=== PATIENT | female | born 1975 | race Caucasian/White ===

== ENCOUNTER → 2021-07-10 08:38 | Outpatient (BNVA) | payer MEDICAID, SELFPAY | PROVIDERS: Family Provider Family Medicine; Referring Provider Family Medicine; Visit Provider Specialist | DX: M25.561 Pain in right knee (principal); M25.562 Pain in left knee | CPT/HCPCS: 73560; 73565 ==

== ENCOUNTER 2021-07-10 14:26 | Outpatient (CLI) | payer MEDICARE, MEDICAID, SELFPAY | END 2021-07-10 14:27 | disposition home or self-care (01) | LOC: SPT 14:27 | PROVIDERS: Family Provider Family Medicine; Visit Provider Specialist | DX: Z46.89 Encounter for fitting and adjustment of other specified devices (principal); M17.0 Bilateral primary osteoarthritis of knee | CPT/HCPCS: 97760; L1812 ==

== ENCOUNTER → 2021-07-29 00:01 | Outpatient (BNVA) | payer MEDICARE, MEDICAID, SELFPAY | PROVIDERS: Family Provider Family Medicine; Visit Provider Obstetrics & Gynecology | DX: N39.46 Mixed incontinence (principal); N81.9 Female genital prolapse, unspecified; N32.81 Overactive bladder; N81.10 Cystocele, unspecified | CPT/HCPCS: 87086 ==

== ENCOUNTER 2021-07-30 12:19 | Outpatient (RCR) | payer MEDICARE, SELFPAY | END 2021-08-08 23:59 | disposition home or self-care (01) | LOC: SPT 12:19 | PROVIDERS: PCP Family Medicine; Referring Provider Specialist; Visit Provider Specialist | DX: M17.12 Unilateral primary osteoarthritis, left knee (principal); M17.11 Unilateral primary osteoarthritis, right knee | CPT/HCPCS: 97161 ==

== ENCOUNTER → 2021-10-11 13:42 | Outpatient (BNVA) | payer MEDICARE, SELFPAY | PROVIDERS: PCP Family Medicine; Visit Provider Obstetrics & Gynecology | DX: Z20.822 Contact with and (suspected) exposure to COVID-19 (principal); N39.46 Mixed incontinence; N81.10 Cystocele, unspecified; N81.9 Female genital prolapse, unspecified; Z20.818 Contact with and (suspected) exposure to other bacterial communicable diseases | CPT/HCPCS: 87635 ==

== ENCOUNTER 2021-10-16 15:13 | Observation (INO) | payer MEDICARE, MEDICAID, SELFPAY ==
[2021-10-14 10:04] VITALS: BMI 33.0
--- NOTE | 2021-10-14 10:14 | ECG_ITS ---
[facility] Test Date: 2021-10-14 Pat Name: Roselia Chester Department: Room: Gender: Female Rn Operating Room: : 1975 Requested By: Cathy Hood Order Number: [id number] Jason MD: Michael Magaña M.D. Measurements Intervals [place] Rate: 57 P: 31 VA: 140 QRS: 30 QRSD: 86 T: 32 QT: 418 QTc: 410 Interpretive Statements SINUS BRADYCARDIA WITH SINUS ARRHYTHMIA No previous ECG available for comparison Electronically Signed On 10-14-2021 17:02:33 ENVIRONMENTAL SOLUTIONS ENGINEER by Michael Magaña M.D. [id number]
--- NOTE | 2021-10-14 11:06 | ANES.PREANE2 ---
Pre-Anesthetic Assessment Pre-Anesthetic Assessment: Height/Weight: Height 1.68 m Weight 92.986 kg Preop Diagnosis: cystocele Proposed Procedure: Operation Date: 10/16/21 10:50 Proposed Procedures p Anterior Repair Anterior Colporrhaphy 67564 [id number] N81.10 N39.46(Not Applicable) - Pan Melendez MD s Sling(Not Applicable) - Pan Melendez MD Familial anesthetic complications: Hard time going to sleep Social: Social History: No alcohol and No tobacco Comment: marijuana user (medical) Exam: Pre-Anes Outpt Exam: alert, oriented x 3, clear to auscultation bilaterally and regular rate & rhythm Airway: MP: 2 Dentition: Other (no wisdom teeth) Pulmonary: Pulmonary: COPD (former smoker) CV/HEM: CV/HEM: NM (1 year) Comments: Seems to have had pericardial effusion at the time as well, which was drained No further heart issues Musc/skel: Musc/skel: Fibromyalgia Neuropsych: Comments: charcot brent tooth Anesthetic Plan: ASA status: 3 Anesthesia: General Risk of > 500 ml blood loss (7ml/kg in children): No PFSH Anesthesia PFSH: Medical History (Updated 07/29/21 @ 14:52 by Pan Melendez MD) Fktvxoi-Efyrn-Sxgqp disease Congestive heart failure Surgical History (Updated 07/29/21 @ 14:50 by Pan Melendez MD) History of bladder repair surgery 2 bladder sling surgeries. History of delivery 1998 History of hysterectomy 1998 History of left breast biopsy Breast cancer of left breast removed in 2005. History of spinal surgery Neck surgery (2005) History of vaginal surgery Family History (Updated 07/29/21 @ 13:45 by Estefania Landis LPN) Sister Anesthesia complication Mother Cancer Lung cancer and back cancer Lung disease Diabetes Father Diabetes Other Hypertension Psychiatric illness Denies family history of CAD (coronary artery disease) Clotting disorder Dementia Hyperlipidemia Chronic kidney disease (CKD) Suicide Bleeding disorder Family history of premature coronary artery disease Stroke Data Anesthesia Cardiac Studies: No Data to Display
[2021-10-14 11:28] LABS: Basophils # 0.1 10^3/uL (0.0-0.1); Basophils % 0.7 %; Eosinophils # 0.2 10^3/uL (0.0-0.8); Eosinophils % 1.6 %; Hematocrit 43.6 % (37.0-47.0); Hemoglobin 14.9 g/dL (11.5-15.3); Lymphocytes # 2.9 10^3/uL (0.8-4.8); Lymphocytes % 27.3 %; Mean Corpuscular HGB Conc 34.2 g/dL (30.0-36.0); Mean Corpuscular Hemoglobin 31.8 pg (28.0-34.0); Mean Corpuscular Volume 93.2 fl (81-99); Mean Platelet Volume 11.4 fL (7.4-10.4); Monocytes # 1.2 10^3/uL (0.2-0.9); Monocytes % 10.8 %; Neutrophils # 6.35 10^3/uL (1.8-7.7); Neutrophils % 59.2 %; Nucleated Red Blood Cells % 0 %; Platelet Count 234 10^3/cmm (130-400); Red Blood Count 4.68 10^6/uL (4.1-5.3); Red Cell Distribution Width 12.7 % (12.1-15.1); White Blood Count 10.7 10^3/uL (4.0-10.0)
[2021-10-14 12:27] LABS: Slide Review Slide Review Perform
[2021-10-16] VITALS (15 sets, daily range): BP systolic 111–161; BP diastolic 52–105; PULSE 54–75; RESP 15–18; TEMP 30.2–36.6; O2SAT 94–100
--- NOTE | 2021-10-16 10:39 | PC.NURSE ---
Informed patient of delay due to bed availability. Pt verbalized understanding. Will hold off on IV per OR charge.
--- NOTE | 2021-10-16 11:56 | W.PM.OPSUD ---
Surgery/Procedure H&P Update DATE OF PROCEDURE: October 16, 2021 DATE H&P PERFORMED: 10/15/21 H&P UPDATE INFORMATION: I have reviewed H&P completed within last 30 days, I have examined patient prior to procedure and No changes to prior documentation PREOP DIAGNOSIS: cystocele stage II and mixed urinary incontinence PLANNED PROCEDURE: Operation Date: 10/16/21 11:40 Proposed Procedures p Anterior Repair Anterior Colporrhaphy [id number] 51779 N81.10 N39.46(Not Applicable) - Pan Melendez MD s Sling(Not Applicable) - Pan Melendez MD
[2021-10-16 11:57] LABS: Add Urine Microscopic? NO; Charge for UA Resulting for Rev
[2021-10-16 12:05] LABS: Bilirubin Urine Neg (Negative); Blood Urine Neg (Negative); Glucose Urine UA Norm (Normal); Ketones Urine Negative (Negative); Leukocyte Esterase Urine Negative (Negative); Nitrate Urine Negative (Negative); Protein Urine Neg (Negative); Specific Gravity, Urine 1.025 (1.005-1.030); Urine Appearance Clear (CLEAR); Urine Color Yellow (Yellow); Urobilinogen Urine Norm (Negative); pH Urine 5 (5-7)
[2021-10-16 12:15] LABS: Basophils # 0.1 10^3/uL (0.0-0.1); Basophils % 0.5 %; Eosinophils # 0.2 10^3/uL (0.0-0.8); Eosinophils % 2.3 %; Hematocrit 41.2 % (37.0-47.0); Lymphocytes # 2.2 10^3/uL (0.8-4.8); Lymphocytes % 24.3 %; Mean Corpuscular Hemoglobin 31.9 pg (28.0-34.0); Mean Corpuscular Volume 93.8 fl (81-99); Mean Platelet Volume 9.3 fL (7.4-10.4); Monocytes # 0.8 10^3/uL (0.2-0.9); Monocytes % 8.4 %; Neutrophils # 5.88 10^3/uL (1.8-7.7); Neutrophils % 64.3 %; Nucleated Red Blood Cells % 0 %; Platelet Count 266 10^3/cmm (130-400); Red Blood Count 4.39 10^6/uL (4.1-5.3); Red Cell Distribution Width 12.6 % (12.1-15.1); White Blood Count 9.2 10^3/uL (4.0-10.0)
[2021-10-16] MEDS: sodium chloride 0.9% 1,000 ML 30 ML IV (12:17)
[2021-10-16] MEDS: sodium chloride 0.9% 500 ML IV (12:17)
[2021-10-16] MEDS: scopolamine 1.5 Patch 1 PATCH TRANSDERMA (12:18)
--- NOTE | 2021-10-16 12:38 | ANES.PAUD2 ---
Pre-Anesthetic Update Pre-Anesthetic Assessment: Date of Surgery/Procedure: 10/16/21 Preop Diagnosis: cystocele stage II and mixed urinary incontinence Proposed Procedure: Operation Date: 10/16/21 11:40 Proposed Procedures p Anterior Repair Anterior Colporrhaphy 13280 15708 N81.10 N39.46(Not Applicable) - Pan Melendez MD s Sling(Not Applicable) - Pan Melendez MD Last Intake: Intake Last Liquid Date 10/15/21 Last Solid Date 10/15/21 Labs Last 48hrs: Laboratory Results - last 48 hr 10/16/21 10/16/21 11:50 Unknown WBC 9.2 RBC 4.39 Hgb 14.0 Hct 41.2 MCV 93.8 MCH 31.9 MCHC 34.0 RDW 12.6 Plt Count 266 MPV 9.3 Neut % (Auto) 64.3 Lymph % (Auto) 24.3 [place] % (Auto) 8.4 Eos % (Auto) 2.3 Baso % (Auto) 0.5 Neut # (Auto) 5.88 Lymph # (Auto) 2.2 [place] # (Auto) 0.8 Eos # (Auto) 0.2 Baso # (Auto) 0.1 Nucleated RBC % (a uto) 0 Nucleated RBCs # 0.0 Urine Color Yellow Urine Appearance Clear Urine pH 5 Ur Specific Gravit y 1.025 Urine Protein Neg Urine Glucose (UA) Norm Urine Ketones Negative Urine Blood Neg Urine Nitrate Negative Urine Bilirubin Neg Urine Urobilinogen Norm Ur Leukocyte Michaelle ase Negative Vitals: Temperature 97.0 F L 10/16/21 10:26 Pulse Rate 66 10/16/21 10:26 Respiratory Rate 18 10/16/21 10:26 Blood Pressure 126/84 10/16/21 10:26 Blood Pressure Priscilla n 98 10/16/21 10:26 Pulse Oximetry 97 10/16/21 10:26 Oxygen Delivery Me thod 10/16/21 10:26 Cardiac Studies: No Data to Display
[2021-10-16 12:53] LABS: Alanine Aminotransferase 12 U/L (0-33); Albumin Level 4.1 g/dL (3.5-5.2); Alkaline Phosphatase 75 IU/L (35-105); Anion Gap 16.1 (5-19); Aspartate Amino Transferase 14 U/L (0-32); Blood Urea Nitrogen 17 mg/dL (6-20); Calcium 8.6 mg/dL (8.5-10.5); Carbon Dioxide 24 mmol/L (22-29); Chloride 103 mmol/L (98-107); Creatinine Clr Calc Pharmacy 114.1432; Glomerular Filtration Rate 89.7 mL/min (90-130); Glucose 90 mg/dL (65-115); Osmolality Calculated 287 mOsm/kg (285-295); Potassium 5.1 mmol/L (3.5-5.1); Sodium 138 mmol/L (136-145); Total Bilirubin 0.6 mg/dL (0.15-1.2); Total Protein 6.1 g/dL (6.6-8.7)
[2021-10-16] MEDS: estrogens Conjugated Cream 30 gm 1 APPLIC VAGINAL (14:32)
--- NOTE | 2021-10-16 14:43 | P.OP_ITS ---
Operative Report Date of procedure: October 16, 2021 Pre-op Diagnosis: cystocele stage II and mixed urinary incontinence Post-op diagnosis: same Procedure Done: Anterior colporrhaphy augmented with allograft. Single incision mid urethral sling. Cystoscopy. Specimens removed/disposition: None Pathology: none sent Surgeon: Pan Melendez MD Anesthesia: General Estimated blood loss (mL): 20 IV fluids (mL): 300 Urine output (mL): 200 Complications: None Findings: Cystocele Condition: stable Disposition: PACU Procedure: After obtaining informed consent, the patient was taken to the operating room and placed in the supine position, given general anesthesia, and prepped and draped in sterile fashion. The abdomen, vulva and vagina were prepped and draped in a sterile manner. A time out procedure was performed. The anterior vaginal mucosa beneath the midurethra was infiltrated with 0.5% Marcaine with epinephrine. A vertical midline incision was made beneath the midurethra, nearly 1.5 cm length. Careful submucosal dissection was performed bilaterally up to the interior portion of the inferior pubic ramus. The insertion of adductor longus tendon on the patient?s pubic ramus was identified as reference land rosa maria. Palpated the notch along the internal edge of ischiopubic ramus where the adductor longus tendon and the inferior pubic ramus meet. The Altis single incision sling (SIS) was selected. Then the needle of the SIS inserted aiming at the location of this notch. One of the integrated self- fixating tips place onto the needle by sliding it over the end of the needle. The needle/sling assembly was inserted toward the location of identified reference notch making sure that the flat of the handle is perpendicular to the desired path. The needle was tracked along the posterior surface of the ischiopubic ramus until the midline rosa maria on the mesh is approximately at the midline position under the urethra. The needle was removed and the same was repeated on the contralateral side until the appropriate sling tension under the urethra was achieved ensuring that the mesh lays flat. The needle was removed and vaginal incision was closed in a running interlocking fashion with 2-0 Vicryl. The vaginal mucosa was then injected in the midline with normal saline. The vaginal mucosa was scored in the midline with the Bovie approximately 1 cm medial to the urethral meatus to 1 cm distal to the vaginal cuff. This vaginal mucosa was then undermined and then incised in the midline with the Metzenbaum scissors. The lateral aspects of the vaginal mucosa were then grasped with the Allis clamps and the vaginal mucosa was then dissected off the underlying fascia with the Metzenbaum scissors. Again, there was noted to be quite a bit of oozing at the incision, which was controlled with cautery. After adequate dissection was performed, bilaterally. A Coloplast allograft was modified at time of application to fit spacea, 3 x 3 cm piece . The allograft placed in front of cystocele ready to be implanted facing the vagina mucosa. Suture is placed at distal end of graft and placed towards vaginal cuff. Final suture is placed on proximal portion of the graft to complete the placement overlying the bladder. Then Interrupted vertical mattress sutures of 0 Vicryl were used to elevate the cystocele superiorly. The excessive vaginal mucosa was then trimmed with the Metzenbaum scissors and the vaginal mucosa was then reapproximated in the running interlocking fashion with 2-0 Vicryl. Then the Sher catheter was removed and cystoscope was inserted. The bladder was filled with sterile water. Complete evaluation of the bladder mucosa was performed noting no lacerations, dimpling, tears, bleeding of the mucosa or muscular layers. Both ureteral orifices were identified. Prompt excretion of urine from both ureteral orifices was noted. Cystoscope was withdrawn. The Sher catheter was replaced. Excellent hemostasis was obtained. A vaginal pack is placed overnight as postoperative support for the vaginal tissues after graft placement and closure of vaginal incisions. Sponge, lap, needle, and instrument counts were correct times three. The patient was taken to the recovery room, awake and in stable co ndition. Associated Problem List Diagnoses (1) Mixed urinary incontinence due to female genital prolapse: (2) Overactive bladder: (3) POP-Q stage 2 cystocele:
[2021-10-16] MEDS: ipratropium 0.5 mg/2.5 mL Neb INHALATION (14:59)
[2021-10-16] MEDS: docusate sodium 100 mg Capsule PO (17:45)
[2021-10-16] MEDS: quetiapine 100 mg Tablet 400 MG PO (17:45)
[2021-10-16] MEDS: tizanidine 4 mg Tablet PO (21:50)
[2021-10-16] MEDS: dextrose 5%-lactated ringers 1,000 ML 125 ML IV (21:50)
[2021-10-16] MEDS: oxyCODONE 5 mg IR Tab/Cap 10 MG PO (21:56)
[2021-10-17 04:00] VITALS: BP 116/54; PULSE 68
[2021-10-17 06:05] LABS: Hematocrit 38.6 % (37.0-47.0); Hemoglobin 12.6 g/dL (11.5-15.3); Mean Corpuscular HGB Conc 32.6 g/dL (30.0-36.0); Mean Corpuscular Hemoglobin 31.1 pg (28.0-34.0); Mean Corpuscular Volume 95.3 fl (81-99); Mean Platelet Volume 9.5 fL (7.4-10.4); Platelet Count 237 10^3/cmm (130-400); Red Blood Count 4.05 10^6/uL (4.1-5.3); Red Cell Distribution Width 12.6 % (12.1-15.1); White Blood Count 9.3 10^3/uL (4.0-10.0)
[2021-10-17] MEDS: doxepin 50 mg Capsule 100 MG PO (08:19)
[2021-10-17] MEDS: oxybutynin chloride XL 5 MG TABLET PO (08:20)
[2021-10-17] MEDS: FUROsemide 40 mg Tablet PO (08:21)
[2021-10-17] MEDS: meloxicam 7.5 mg tablet 15 MG PO (08:22)
--- NOTE | 2021-10-17 08:22 | P.DS_ITS ---
Discharge Providers POLISHING PAD MOUNTER Date of Admission: 10/16/21 15:13 Date of Discharge: 10/17/21 Attending Provider at Admission: Pan Melendez MD Attending Provider at Discharge: Pan Melendez MD Primary Care Provider: Edward Britton MD Diagnoses at Discharge Discharge Diagnosis (1) Mixed urinary incontinence due to female genital prolapse: Status: Acute (2) Overactive bladder: Status: Acute (3) POP-Q stage 2 cystocele: Status: Acute Reason for Visit Reason for Visit: anterior colporrhaphy Hospital Course Hospital Course Mrs. Chester 46-year-old female with cystocele stage II and mixed urinary i ncontinence. Admitted for planned anterior colporrhaphy augmented with allograft and single incision mid urethral sling. The procedures were performed without complication. Overnight observation uneventful. She is afebrile and hemodynamically stable postoperative day 1. Tolerating diet well. Ambulating without difficulty. Pain well under control. PVR within normal limits. Physical Exam Narrative: EXAM NARRATIVE: GA: Alert and oriented ?3. HEENT: WNL. Heart: Regular rate and rhythm. Lungs: Clear to auscultation bilaterally. Abdomen: Bowel sounds present INGOT BUGGY OPERATOR: Spotting bleeding. Extremities: No edema, no cyanosis, no calves pain. Urinary Catheter Management^: Sher: Cath Placed During This Visit: yes Urinary Catheter Date of Insertion: 10/16/21 Urinary Catheter Time of Insertion: 13:36 History History History 7 Term 4 Miscarriages/Ectopic 3 0 Living Children 4 Discharge Data 2 Data Completed and Pending: Labs from last 24 hours 10/17/21 10/16/21 10/16/21 05:55 Unknown 11:50 WBC 9.3 RBC 4.05 L Hgb 12.6 Hct 38.6 MCV 95.3 MCH 31.1 MCHC 32.6 RDW 12.6 Plt Count 237 MPV 9.5 Neut % (Auto) Lymph % (Auto) [place] % (Auto) Eos % (Auto) Baso % (Auto) Neut # (Auto) Lymph # (Auto) [place] # (Auto) Eos # (Auto) Baso # (Auto) Nucleated RBC % (a uto) Nucleated RBCs # Sodium Potassium Chloride Carbon Dioxide Anion Gap BUN Creatinine GFR Calculation Glucose Calculated Osmolal ity Calcium Total Bilirubin AST ALT Alkaline Phosphata se Total Protein Albumin Globulin Urine Color Yellow Urine Appearance Clear Urine pH 5 Ur Specific Gravit y 1.025 Urine Protein Neg Urine Glucose (UA) Norm Urine Ketones Negative Urine Blood Neg Urine Nitrate Negative Urine Bilirubin Neg Urine Urobilinogen Norm Ur Leukocyte Michaelle ase Negative Blood Type O Positive Rho(D) Type Positive Antibody Screen Negative 10/16/21 10/16/21 11:50 11:50 WBC 9.2 RBC 4.39 Hgb 14.0 Hct 41.2 MCV 93.8 MCH 31.9 MCHC 34.0 RDW 12.6 Plt Count 266 MPV 9.3 Neut % (Auto) 64.3 Lymph % (Auto) 24.3 [place] % (Auto) 8.4 Eos % (Auto) 2.3 Baso % (Auto) 0.5 Neut # (Auto) 5.88 Lymph # (Auto) 2.2 [place] # (Auto) 0.8 Eos # (Auto) 0.2 Baso # (Auto) 0.1 Nucleated RBC % (a uto) 0 Nucleated RBCs # 0.0 Sodium 138 Potassium 5.1 Chloride 103 Carbon Dioxide 24 Anion Gap 16.1 BUN 17 Creatinine 0.7 GFR Calculation 89.7 L Glucose 90 Calculated Osmolal ity 287 Calcium 8.6 Total Bilirubin 0.6 AST 14 ALT 12 Alkaline Phosphata se 75 Total Protein 6.1 L Albumin 4.1 Globulin 2.0 Urine Color Urine Appearance Urine pH Ur Specific Gravit y Urine Protein Urine Glucose (UA) Urine Ketones Urine Blood Urine Nitrate Urine Bilirubin Urine Urobilinogen Ur Leukocyte Michaelle ase Blood Type Rho(D) Type Antibody Screen Vitals: Last Vital Signs Temp 97.9 F 10/16/21 17:30 Pulse 68 10/17/21 04:00 Resp 16 10/16/21 22:30 BP 116/54 10/17/21 04:00 Pulse Ox 97 10/16/21 22:30 Discharge Plan Discharge Patient Disposition: Home Condition: Stable Prescriptions: Continued ondansetron 4 mg tablet,disintegrating 4 mg PO Q8H PRN (Reason: Nausea) RF: 0 spironolactone 25 mg tablet 25 mg PO DAILY RF: 0 docusate sodium 50 mg/5 mL liquid 50 mg PO DAILY RF: 0 nitroglycerin 0.4 mg tablet, sublingual 0.4 mg sublingual Q5M PRN (Reason: chest pain) RF: 0 meloxicam 15 mg tablet 15 mg PO DAILY RF: 0 tizanidine 4 mg capsule 4 mg PO TID RF: 0 alprazolam 2 mg tablet 2 mg PO TID RF: 0 oxycodone 10 mg tablet 10 mg PO TID PRN (Reason: pain) RF: 0 venlafaxine [Effexor XR] 75 mg capsule,extended release 24hr 75 mg PO DAILY RF: 0 doxepin 100 mg capsule 100 mg PO DAILY RF: 0 quetiapine [Seroquel] 400 mg tablet 400 mg PO BID RF: 0 famotidine 20 mg tablet 20 mg PO DAILY RF: 0 furosemide [Lasix] 40 mg tablet 40 mg PO DAILY RF: 0 (DME) HINGED KNEE BRACE See Rx Instructions .Route .MEDSUPPLY Qty: 2 RF: 0 (DME) potassium See Rx Instructions .Route .MEDSUPPLY RF: 0 potassium chloride 20 mEq Tablet Extended Release 20 meq PO BID RF: 0 oxybutynin chloride [Ditropan XL] 5 mg tablet extended release 24hr 5 mg PO DAILY RF: 0 Medical Marijuana RF: 0 Discharge Orders: Discharge Order (Routine); Ordered 10/17/21 Ordered By: Pan Melendez Referrals: Pan Melendez MD [Physician] - 10/29/21 2:00 pm (Your 2 week post-op appointment is scheduled for 10/29/21 @2:00. Your 6 week post-op appointment is scheduled for 11/26/20 @1:30. ) Discharge Diet: Usual diet Discharge Activity: Increase activity as tolerated Patient Instructions: Bladder Sling (GEN), Anterior Vaginal Repair (GEN), OB Discharge Report, OB Food/Drug Interaction Guide, Opioid Safety Activity Restrictions/Additional Instructions: 1. Please call [facility] on next working day to make your post-operative appointment in 2 weeks. 2. Please stay home until you come back to the clinic on first post-operative check up. 3. Please follow instructions on your medications CAREFULLY. 4. If you have abdominal incision, do not cover it unless dressing is necessary because of drainage. OK to shower, but avoid bath. Leave steri-strips until they fall off. If they are still on one week after surgery, you may remove them. 5. If you had vaginal surgery or vaginal repair, Dr. Melendez may instruct you to take SITZ bath. 6. Yellow, blood tinged odorous vaginal discharge is usually normal after hysterectomy or vaginal surgeries. 7. No sexual intercourse, tampons, or douches until you are completely released from the post-operative care. 8. Avoid constipation by eating right and maybe using some Metamucil or Milk of Magnesia. 9. All prescription refills are given during the working hours. Please do no wait till it runs out. Call the clinic at [phone] before your medication runs out. The clinic will get in touch with your doctor to prescribe medications if necessary. 10. Please remain within 40 mile radius from our hospital because emergencies do happen now and then during the post-operative period. 11. If you have stairs at home, take one step at a time slowly and minimize the number of trips. It helps to stay in one floor for the next few days. No lifting except what you can lift by one hand until you are released from the post-operative care. 12. Driving is discouraged until you are well healed. It may be 3-4 weeks before you feel strong enough to drive. You should be able to turn and look through the rear window without pain and you should be able to push the brake pedal very hard without pain before you drive. No fast rules, but SAFETY should be your primary concern. DO NOT drive if you are on sedating medications such as narcotics. 13. Call the clinic (during working hours) to make urgent appointment or go to the Emergency room, if any of the following occurs: i. Vaginal bleeding becomes heavy, more than a period. ii. Incision becomes red and sore, or drains pus. iii. Your temperature is over 100.4 or you have chill. iv. IV site becomes red and swollen (a little ``knot?? is usually OK) v. Persistent nausea and vomiting vi. Persistent constipation or diarrhea vii. Rash or allergic reaction to medications. Discharge Attestations POLISHING PAD MOUNTER Time Spent in Discharge Care*: greater than 30 min Coding Level of Care Code Acute Land Department Head for Chg Fwd Diagnoses Mixed urinary incontinence due to female genital prolapse N39.46; N81.9 Overactive bladder N32.81 POP-Q stage 2 cystocele N81.10
[2021-10-17] MEDS: venlafaxine ER (24HR) 75 mg Capsule PO (08:23)
[2021-10-17] MEDS: spironolactone 25 mg Tablet PO (08:23)
[2021-10-17] MEDS: potassium chloride ER 10 mEq Tablet 20 MEQ PO (08:41)
[2021-10-17] MEDS: tizanidine 4 mg Tablet PO (08:41)
[2021-10-17] MEDS: famotidine 20 mg Tablet PO (08:41)
[2021-10-17] MEDS: docusate sodium 100 mg Capsule PO (08:41)
[2021-10-17 10:45] VITALS: BP 104/61; PULSE 65; RESP 18; TEMP 36.7; O2SAT 97
== END 2021-10-17 10:45 | disposition home or self-care (01) ==
LOC: OBGYN 15:16
PROVIDERS: Anesthesiology; Admitting Provider Obstetrics & Gynecology; PCP Family Medicine; Visit Provider Obstetrics & Gynecology
PROC: 0JQC0ZZ Repair Pelvic Region Subcutaneous Tissue and Fascia, Open Approach (ICD-10-PCS; CPT 57240; principal; 2021-10-16 11:40)
PROC: (CPT 57288; 2021-10-16 11:40)
DX: N32.81 Overactive bladder (principal); N39.46 Mixed incontinence; N81.10 Cystocele, unspecified; N81.9 Female genital prolapse, unspecified; I50.9 Heart failure, unspecified; Z87.891 Personal history of nicotine dependence; Z90.710 Acquired absence of both cervix and uterus
CPT/HCPCS: 57240; 57288; 36415; 51798; 80053; 81003; 85025; 85027; 86850; 86900; 93005; 96365; C1713; C1762; G0378; J0690; J2405; J2704; J2710; J3010; J3490; J7030; J7040; J7611; J7644

== ENCOUNTER 2021-11-12 15:20 | Emergency (ER) | payer MEDICARE, MEDICAID, SELFPAY ==
[2021-11-12 15:28] VITALS: BP 165/80; PULSE 69; RESP 16; TEMP 37.1; O2SAT 98
[2021-11-12 16:03] VITALS: O2SAT 99
--- NOTE | 2021-11-12 16:07 | CTR_ITS ---
PROCEDURE INFORMATION: Exam: CT Angiography Head With Contrast, Arteriography Exam date and time: 11/12/2021 4:07 PM Age: 46 years old Clinical indication: Pain; Headache; Prior surgery; Additional info: Eval for dissection TECHNIQUE: Imaging protocol: Computed tomography angiography of the head with contrast. Exam focused on the arteries. 3D rendering (Not supervised by radiologist): MIP and/or 3D reconstructed images were created by the technologist. Radiation optimization: All CT scans at this facility use at least one of these dose optimization techniques: automated exposure control; mA and/or kV adjustment per patient size (includes targeted exams where dose is matched to clinical indication); or iterative reconstruction. Contrast material: OMNI 350; Contrast volume: 95 ml; Contrast route: INTRAVENOUS (IV); COMPARISON: CT head wo con* [id number] 11/12/2021 4:52 PM RADIATION DOSE METRICS: Total DLP (mGy-cm): 2408.67 FINDINGS: Limitations: Study is partly limited by artifact from the patient's metallic dental work. ANTERIOR CIRCULATION: Right internal carotid artery: Unremarkable. Intracranial segment is patent with no significant stenosis. No aneurysm. Right middle cerebral artery: Unremarkable. No occlusion or significant stenosis. No aneurysm. Right anterior cerebral artery: Unremarkable. No occlusion or significant stenosis. No aneurysm. Left internal carotid artery: Unremarkable. Intracranial segment is patent with no significant stenosis. No aneurysm. Left middle cerebral artery: Unremarkable. No occlusion or significant stenosis. No aneurysm. Left anterior cerebral artery: Unremarkable. No occlusion or significant stenosis. No aneurysm. POSTERIOR CIRCULATION: Right vertebral artery: Right vertebral artery is not well seen due to artifact from the patient's dental work but is grossly patent without stenosis. Left vertebral artery: Unremarkable. No occlusion or significant stenosis. No aneurysm. Basilar artery: Unremarkable. No occlusion or significant stenosis. No aneurysm. Right posterior cerebral artery: Unremarkable. No occlusion or significant stenosis. No aneurysm. Left posterior cerebral artery: Unremarkable. No occlusion or significant stenosis. No aneurysm. Brain: No definite mass, mass effect, or midline shift. Cerebral ventricles: No ventriculomegaly. Bones/joints: Unremarkable. No acute fracture. Left ethmoid sinus disease. Soft tissues: Unremarkable. PROCEDURE INFORMATION: Exam: CT Angiography Neck With Contrast Exam date and time: 11/12/2021 4:07 PM Age: 46 years old Clinical indication: Pain; Headache; Prior surgery; Additional info: Eval for dissection TECHNIQUE: Imaging protocol: Computed tomography angiography of the neck with contrast. 3D rendering (Not supervised by radiologist): MIP and/or 3D reconstructed images were created by the technologist. Radiation optimization: All CT scans at this facility use at least one of these dose optimization techniques: automated exposure control; mA and/or kV adjustment per patient size (includes targeted exams where dose is matched to clinical indication); or iterative reconstruction. Contrast material: OMNI 350; Contrast volume: 95 ml; Contrast route: INTRAVENOUS (IV); COMPARISON: CT head wo con* [id number] 11/12/2021 4:52 PM RADIATION DOSE METRICS: Total DLP (mGy-cm): 2408.67 FINDINGS: Limitations: Study is severely limited by patient motion. Right common carotid artery: Limited visualization. No gross occlusion. Right internal carotid artery: Limited visualization. No gross occlusion. Right external carotid artery: Poorly visualized Left common carotid artery: Limited visualization. No gross occlusion. Left internal carotid artery: Limited visualization. No gross occlusion. Left external carotid artery: Not well visualized. Right vertebral artery: The proximal portion is severely obscured. No occlusion seen distally.. Left vertebral artery: Proximal portion severely obscured. No occlusion seen distally. Soft tissues: Normal. No significant soft tissue swelling. Soft tissues: Normal. No significant soft tissue swelling. Bones/joints: Postsurgical changes with ACDF C5-C6. No gross fracture but visualization of the lower cervical spine very limited due to patient motion. CT/CT angio headneck* [id number] IMPRESSION: No evidence of significant intracranial stenosis or occlusion. No aneurysm is identified. IMPRESSION: Limited exam due to patient motion. REFERENCES: NASCET CRITERIA. The degree of internal carotid artery stenosis is based on NASCET criteria. Normal is no stenosis. Mild is less than 50% stenosis. Moderate is 50-69% stenosis. Severe is 70% to 99% stenosis. Total occlusion is no detectable patent lumen.
--- NOTE | 2021-11-12 16:07 | CTR_ITS ---
PROCEDURE INFORMATION: Exam: CT Head Without Contrast Exam date and time: 11/12/2021 4:07 PM Age: 46 years old Clinical indication: Pain; Altered mental status/memory loss; Headache not specified; Additional info: Eval L sided headache, AMS TECHNIQUE: Imaging protocol: Computed tomography of the head without contrast. Radiation optimization: All CT scans at this facility use at least one of these dose optimization techniques: automated exposure control; mA and/or kV adjustment per patient size (includes targeted exams where dose is matched to clinical indication); or iterative reconstruction. COMPARISON: CR XR knees AP WB w BI lmt ORTH 07/10/2021 8:47 AM RADIATION DOSE METRICS: Total DLP (mGy-cm): 825.28 FINDINGS: Brain: Normal. No hemorrhage. Unremarkable white matter. No mass effect. Cerebral ventricles: No ventriculomegaly. Paranasal sinuses: There is some partial opacification of some ethmoid air cells on the left in keeping with mild sinus disease. Mastoid air cells: Visualized mastoid air cells are well aerated. Bones/joints: Unremarkable. No acute fracture. Soft tissues: Unremarkable. CT/CT head wo con* [id number] IMPRESSION: 1. Left ethmoid sinus disease. 2. No acute intracranial finding.
[2021-11-12 16:37] LABS: Basophils # 0.1 10^3/uL (0.0-0.1); Basophils % 0.5 %; Eosinophils # 0.3 10^3/uL (0.0-0.8); Eosinophils % 2.4 %; Hematocrit 46.2 % (37.0-47.0); Hemoglobin 15.5 g/dL (11.5-15.3); Lymphocytes # 3.1 10^3/uL (0.8-4.8); Lymphocytes % 28.3 %; Mean Corpuscular HGB Conc 33.5 g/dL (30.0-36.0); Mean Corpuscular Hemoglobin 31.4 pg (28.0-34.0); Mean Corpuscular Volume 93.7 fl (81-99); Mean Platelet Volume 9.5 fL (7.4-10.4); Monocytes % 9.4 %; Nucleated Red Blood Cells % 0 %; Platelet Count 311 10^3/cmm (130-400); Red Blood Count 4.93 10^6/uL (4.1-5.3); Red Cell Distribution Width 12.9 % (12.1-15.1)
--- NOTE | 2021-11-12 16:45 | PC.NURSE ---
pt transported to CT scan by stretcher with tech. Pt's daughter in room and update given.
[2021-11-12] MEDS: iohexol 350 mg/mL 100 mL Btl IV (17:01)
[2021-11-12 17:35] VITALS: BP 130/91; PULSE 59; RESP 13; O2SAT 99
[2021-11-12 17:41] LABS: Blood Urea Nitrogen 16 mg/dL (6-20); Calcium 9.3 mg/dL (8.5-10.5); Carbon Dioxide 22 mmol/L (22-29); Chloride 102 mmol/L (98-107); Glomerular Filtration Rate 132.2 mL/min (90-130); Glucose 91 mg/dL (65-115); Osmolality Calculated 287 mOsm/kg (285-295); Sodium 138 mmol/L (136-145)
[2021-11-12 17:44] LABS: Anion Gap 18.1 (5-19); Potassium 4.1 mmol/L (3.5-5.1)
--- NOTE | 2021-11-12 17:52 | PC.NURSE ---
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 fluorescine strips and cage lamp placed at bedside. ED physician notified.
--- NOTE | 2021-11-12 18:12 | ED_ITS ---
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 Patient noticed a pop in the right side of her neck. Patient then applied a massage device to her neck to relieve the pop and took 4mg of PO xanax to help out with the pain. Shortly after, patient noticed starting of speech. Patient also noticed left-sided facial numbness. Patient denies any vision changes, dysarthria, word finding difficulty, diplopia, mo nocular vision loss, focal weakness or persistent neck pain. Onset:10am Duration:5 hrs ago Location: home Severity:moderate Review of Systems Narrative: Constitutional: No fever, no chills. HEENT: No vision changes, +R neck pop CV: No chest pain, no palpitations PULM: no cough, no dyspnea. GI: No abdominal pain, no N/V/D. : No dysuria MSKEL: No muscle pain SKIN: No new rashes, no lesions. NEURO: No headache, no focal weakness. +R facial numbness HEME: No visible bruises PSYCH: Normal mood PFS ED PFSH: Medical History (Updated 11/12/21 @ 18:10 by Donna Aldana MD) Dzyxdjv-Fguqh-Eggnw disease Congestive heart failure Surgical History (Updated 10/29/21 @ 11:59 by Brenda Uribe RN) History of bladder repair surgery 2 bladder sling surgeries. History of delivery 1998 History of hysterectomy 1998 History of left breast biopsy Breast cancer of left breast removed in 2005. History of spinal surgery Neck surgery (2005) History of vaginal surgery Family History (Updated 07/29/21 @ 13:45 by Estefania Landis LPN) Sister Anesthesia complication Mother Cancer Lung cancer and back cancer Lung disease Diabetes Father Diabetes Other Hypertension Psychiatric illness Denies family history of CAD (coronary artery disease) Clotting disorder Dementia Hyperlipidemia Chronic kidney disease (CKD) Suicide Bleeding disorder Family history of premature coronary artery disease Stroke Physical Exam Narrative: EXAM NARRATIVE: Head: Atraumatic Eyes: PERRL, conjunctiva without injection ENT: Mucous membrane moist, TM intact, no mastoid tenderness, +fluoresceine test did not show any dendritc lesion in the L eye NECK: Supple, ROM intact, no carotid bruit LUNGS: LCTAB, no crackles/rhonchi CV: RRR ABDOMEN: Soft, nontender in all quadrants EXTREMITY: Normal ROM SKIN: No rash or erythema NEURO: ? Awake, alert, and oriented to self, year, month, location, and situation.? Following simple axial and appendicular commands.? Has appropriate fund of knowledge, comprehension, and insight.? Able to recall and understands pertinent aspects of medical history and current treatment status.? ? Language? Speech is fluent without word-finding difficulties.? Intact naming, expression, medical records receptionist, and repetition.? ? Cranial nerves? 2,3,4,6: PERRL, EOMI with no nystagmus. 5: +Mild R sided facial numbness compared to the L 7: Smile symmetrical, no facial droop.? 8: Hearing grossly intact.? 9,10: Normal palate movement.? 11: Normal strength in trapezius bilaterally 12: Tongue protrudes midline.? ? Motor examination? Normal bulk & tone. Strength as follows (R/L): Delts (5/5), Biceps (5/5), Triceps (5/5), Wrist ext (5/5), hip flexors (5/5), plantarflexors (5/5), dorsiflexors (5/5). ? Sensation? Light Touch: Grossly intact and equal in upper and lower extremities bilaterally? Romberg: Negative.? Distal joint position sense intact ? Coordination? Aatuxh-mq-aitc-finger movements intact without dysmetria or past-pointing.? Rapid fingertaps: preserved amplitude without decriment.? No tremor, myoclonus or truncal ataxia.? ? Gait/stance? Steady, normal narrow base gait with appropriate arm swing and turning.? Tandem gait without hesitation or loss of balance. PSYCH: Normal mood and affect Course Vital Signs: Vital signs: Vital Signs Temperature 98.8 F 11/12/21 15:28 Pulse Rate 59 L 11/12/21 17:35 Respiratory Rate 13 11/12/21 17:35 Blood Pressure 130/91 11/12/21 17:35 Pulse Oximetry 99 11/12/21 17:35 MDM - General Adult MDM Narrative: Medical decision making narrative: Patient is a 46-year-old female presents with history of Lwbqall-Eruxx-Ufthq disease, cervical neck fusions presenting to the emergency room with complaints of stuttering of speech and R facial numbness. Patient is able to communicate without any difficulty however has to wait for 1 second between words. Patient has no word finding difficulty, approximation, or slurring of speech. At the present time, I do not suspect that patient has expressive aphasia. Other than mild right-sided facial numbness, patient's neurological exam is intact. Pop sensation in the right side of the neck, decision was made to order CTA of head and neck. CTA negative for any dissection. CT brain is negative for any focal findings. I discussed case with Dr. Sal at 6:10 PM who tells me that this is unlikely to be a stroke symptom given presentation. On reassessment at 6:17 PM, patient has spontaneous reversion of speech and is able to communicate effectively now without any pauses between words. Fluorescein exam is negative for any dendritic lesion. No suspicion for zoster ophthalmicus or Gelacio Boyle syndrome at this time. It is unclear exactly what happened today. I have as such, I have given patient strict return for any further strokelike symptoms. Patient is given close follow with Dr. Sal in the next few days. I have given patient follow up with our machine adjuster leader case trim to be seen by Dr. Sal for R sided facial numbness and stuttering of speech. Patient aware of a call fr om our machine adjuster leader case trim to schedule for appointment(s) and verbalizes understanding of the importance of following up. Disposition: Discharge. Patient counseled regarding diagnostic impression, treatment plan. Patient given ED strict return precautions to return for continuation, worsening, or development of new symptoms. Instructed to f/u w/ Dr. Sal regarding symptoms today. Patient verbalized understanding to come back to the emergency should she have any worsening symptoms or any new or concerning issues. Lab Data: Labs: Lab Results 11/12/21 11/12/21 16:30 16:30 WBC 11.0 10^3/uL H 10 ^3/uL (4.0-10.0) RBC 4.93 10^6/uL 10^6 /uL (4.1-5.3) Hgb 15.5 g/dL H g/dL (11.5-15.3) Hct 46.2 % % (37.0-47.0) MCV 93.7 fl fl (81-99) MCH 31.4 pg pg (28.0-34.0) MCHC 33.5 g/dL g/dL (30.0-36.0) RDW 12.9 % % (12.1-15.1) Plt Count 311 10^3/cmm 10^3 /cmm (130-400) MPV 9.5 fL fL (7.4-10.4) Neut % (Auto) 59.0 % % Lymph % (Auto) 28.3 % % [place] % (Auto) 9.4 % % Eos % (Auto) 2.4 % % Baso % (Auto) 0.5 % % Neut # (Auto) 6.50 10^3/uL 10^3 /uL (1.8-7.7) Lymph # (Auto) 3.1 10^3/uL 10^3/ uL (0.8-4.8) [place] # (Auto) 1.0 10^3/uL H 10^ 3/uL (0.2-0.9) Eos # (Auto) 0.3 10^3/uL 10^3/ uL (0.0-0.8) Baso # (Auto) 0.1 10^3/uL 10^3/ uL (0.0-0.1) Nucleated RBC % (a uto) 0 % % Nucleated RBCs # 0.0 /100WBC /100W BC Sodium 138 mmol/L mmol/L (136-145) Potassium 4.1 mmol/L mmol/L (3.5-5.1) Chloride 102 mmol/L mmol/L (98-107) Carbon Dioxide 22 mmol/L mmol/L (22-29) Anion Gap 18.1 (5-19) BUN 16 mg/dL mg/dL (6-20) Creatinine 0.5 mg/dL mg/dL (0.5-0.9) GFR Calculation 132.2 mL/min H mL /min (90-130) Glucose 91 mg/dL mg/dL (65-115) Calculated Osmolal ity 287 mOsm/kg mOsm/ kg (285-295) Calcium 9.3 mg/dL mg/dL (8.5-10.5) Imaging Data^: Other Imaging: Radiologist's impression: [facility] [id number] [place], [place] [id number] Scan ReportSigned Patient: Roselia Chester #: [id number]: 1975Acct#:[id number]/Sex: 46 / FADM Date: 11/12/21Loc: ERRoom/Bed:Attending Dr: Ordering Provider/Ordering MD: Donna Aldana MD Date of Service: 11/12/21 Procedure(s): CT angio headneck* [id number] Accession Number(s): [id number] Report Number: [id number] PROCEDURE INFORMATION: Exam: CT Angiography Head With Contrast, Arteriography Exam date and time: 11/12/2021 4:07 PM Age: 46 years old Clinical indication: Pain; Headache; Prior surgery; Additional info: Eval for dissection TECHNIQUE: Imaging protocol: Computed tomography angiography of the head with contrast. Exam focused on the arteries. 3D rendering (Not supervised by radiologist): MIP and/or 3D reconstructed images were created by the technologist. Radiation optimization: All CT scans at this facility use at least one of these dose optimization techniques: automated exposure control; mA and/or kV adjustment per patient size (includes targeted exams where dose is matched to clinical indication); or iterative reconstruction. Contrast material: OMNI 350; Contrast volume: 95 ml; Contrast route: INTRAVENOUS (IV); COMPARISON: CT head wo con* [id number] 11/12/2021 4:52 PM RADIATION DOSE METRICS: Total DLP (mGy-cm): 2408.67 FINDINGS: Limitations: Study is partly limited by artifact from the patient's metallic dental work. ANTERIOR CIRCULATION: Right internal carotid artery: Unremarkable. Intracranial segment is patent with no significant stenosis. No aneurysm. Right middle cerebral artery: Unremarkable. No occlusion or significant stenosis. No aneurysm. Right anterior cerebral artery: Unremarkable. No occlusion or significant stenosis. No aneurysm. Left internal carotid artery: Unremarkable. Intracranial segment is patent with no significant stenosis. No aneurysm. Left middle cerebral artery: Unremarkable. No occlusion or significant stenosis. No aneurysm. Left anterior cerebral artery: Unremarkable. No occlusion or significant stenosis. No aneurysm. POSTERIOR CIRCULATION: Right vertebral artery: Right vertebral artery is not well seen due to artifact from the patient's dental work but is grossly patent without stenosis. Left vertebral artery: Unremarkable. No occlusion or significant stenosis. No aneurysm. Basilar artery: Unremarkable. No occlusion or significant stenosis. No aneurysm. Right posterior cerebral artery: Unremarkable. No occlusion or significant stenosis. No aneurysm. Left posterior cerebral artery: Unremarkable. No occlusion or significant stenosis. No aneurysm. Brain: No definite mass, mass effect, or midline shift. Cerebral ventricles: No ventriculomegaly. Bones/joints: Unremarkable. No acute fracture. Left ethmoid sinus disease. Soft tissues: Unremarkable. PROCEDURE INFORMATION: Exam: CT Angiography Neck With Contrast Exam date and time: 11/12/2021 4:07 PM Age: 46 years old Clinical indication: Pain; Headache; Prior surgery; Additional info: Eval for dissection TECHNIQUE: Imaging protocol: Computed tomography angiography of the neck with contrast. 3D rendering (Not supervised by radiologist): MIP and/or 3D reconstructed images were created by the technologist. Radiation optimization: All CT scans at this facility use at least one of these dose optimization techniques: automated exposure control; mA and/or kV adjustment per patient size (includes targeted exams where dose is matched to clinical indication); or iterative reconstruction. Contrast material: OMNI 350; Contrast volume: 95 ml; Contrast route: INTRAVENOUS (IV); COMPARISON: CT head wo con* [id number] 11/12/2021 4:52 PM RADIATION DOSE METRICS: Total DLP (mGy-cm): 2408.67 FINDINGS: Limitations: Study is severely limited by patient motion. Right common carotid artery: Limited visualization. No gross occlusion. Right internal carotid artery: Limited visualization. No gross occlusion. Right external carotid artery: Poorly visualized Left common carotid artery: Limited visualization. No gross occlusion. Left internal carotid artery: Limited visualization. No gross occlusion. Left external carotid artery: Not well visualized. Right vertebral artery: The proximal portion is severely obscured. No occlusion seen distally.. Left vertebral artery: Proximal portion severely obscured. No occlusion seen distally. Soft tissues: Normal. No significant soft tissue swelling. Soft tissues: Normal. No significant soft tissue swelling. Bones/joints: Postsurgical changes with ACDF C5-C6. No gross fracture but visualization of the lower cervical spine very limited due to patient motion. CT/CT angio headneck* [id number] IMPRESSION: No evidence of significant intracranial stenosis or occlusion. No aneurysm is identified. IMPRESSION: Limited exam due to patient motion. REFERENCES: NASCET CRITERIA. The degree of internal carotid artery stenosis is based on NASCET criteria. Normal is no stenosis. Mild is less than 50% stenosis. Moderate is 50-69% stenosis. Severe is 70% to 99% stenosis. Total occlusion is no detectable patent lumen. Dictated By:Eliza Doeigned By:Marilynn Doe Date/Time:11/12/21 1812DD/ 1607 [id number] [place] [id number] Scan ReportSigned Patient: Roselia Chester #: [id number]: 1975Acct#:[id number]/Sex: 46 / FADM Date: 11/12/21Loc: ERRoom/Bed:Attending Dr: Ordering Provider/Ordering MD: Donna Aldana MD Date of Service: 11/12/21 Procedure(s): CT head wo con* [id number] Accession Number(s): [id number] Report Number: [id number] PROCEDURE INFORMATION: Exam: CT Head Without Contrast Exam date and time: 11/12/2021 4:07 PM Age: 46 years old Clinical indication: Pain; Altered mental status/memory loss; Headache not specified; Additional info: Eval L sided headache, AMS TECHNIQUE: Imaging protocol: Computed tomography of the head without contrast. Radiation optimization: All CT scans at this facility use at least one of these dose optimization techniques: automated exposure control; mA and/or kV adjustment per patient size (includes targeted exams where dose is matched to clinical indication); or iterative reconstruction. COMPARISON: CR XR knees AP WB w BI lmt ORTH 07/10/2021 8:47 AM RADIATION DOSE METRICS: Total DLP (mGy-cm): 825.28 FINDINGS: Brain: Normal. No hemorrhage. Unremarkable white matter. No mass effect. Cerebral ventricles: No ventriculomegaly. Paranasal sinuses: There is some partial opacification of some ethmoid air cells on the left in keeping with mild sinus disease. Mastoid air cells: Visualized mastoid air cells are well aerated. Bones/joints: Unremarkable. No acute fracture. Soft tissues: Unremarkable. CT/CT head wo con* [id number] IMPRESSION: 1. Left ethmoid sinus disease. 2. No acute intracranial finding. Dictated By:Marilynn Doe By:Marilynn Doe Date/Time:11/12/21 175DD/ 1607 Discharge Plan Discharge Patient Disposition: Home Clinical Impression: Facial numbness, Stuttering Condition: Stable Prescriptions: No Action ondansetron 4 mg tablet,disintegrating 4 mg PO Q8H PRN (Reason: Nausea) RF: 0 spironolactone 25 mg tablet 25 mg PO DAILY RF: 0 docusate sodium 50 mg/5 mL liquid 50 mg PO DAILY RF: 0 nitroglycerin 0.4 mg tablet, sublingual 0.4 mg sublingual Q5M PRN (Reason: chest pain) RF: 0 meloxicam 15 mg tablet 15 mg PO DAILY RF: 0 oxybutynin chloride [Ditropan XL] 5 mg tablet extended release 24hr 5 mg PO DAILY Qty: 30 RF: 0 tizanidine 4 mg capsule 4 mg PO TID RF: 0 alprazolam 2 mg tablet 2 mg PO TID RF: 0 oxycodone 10 mg tablet 10 mg PO TID PRN (Reason: pain) RF: 0 venlafaxine [Effexor XR] 75 mg capsule,extended release 24hr 75 mg PO DAILY RF: 0 doxepin 100 mg capsule 100 mg PO DAILY RF: 0 famotidine 20 mg tablet 20 mg PO DAILY RF: 0 furosemide [Lasix] 40 mg tablet 40 mg PO DAILY RF: 0 (DME) HINGED KNEE BRACE See Rx Instructions .Route .MEDSUPPLY Qty: 2 RF: 0 quetiapine [Seroquel] 400 mg tablet 400 mg PO DAILY RF: 0 Medical Marijuana RF: 0 potassium chloride 20 mEq tablet extended release 20 meq PO BID RF: 0 Discharge Orders: Discharge ED (Routine); Ordered 11/12/21 Ordered By: Donna Aldana Referrals: Edward Britton MD [Primary Care Provider] - Discharge Diet: Advance as tolerated Discharge Activity: Resume usual activity Patient Instructions: Paresthesia (ED) Activity Restrictions/Additional Instructions: Come back to the emergency room if any weakness in your arms or legs, if you have any facial droop, double vision, visual blindness, visual field deficits, balance problem, inability to walk, language difficulties or any new or concerning complaints. Our machine adjuster leader case trim will have you follow-up with a neurologist in the next few days. You would be expected to have a phone call with our machine adjuster leader case trim who will put you on the schedule. Coding Level of Care Code ED Professor Of Physical Education for Lila Hayden
[2021-11-12 18:26] VITALS: BP 162/104; PULSE 56; RESP 13; O2SAT 97
--- NOTE | 2021-11-13 10:35 | DCPLANNER ---
Addendum entered by Cierra Lynch 12/05/21 13:37: Lakeisha from the office of Dr. Sal contacted renal case manager stating that when patient was contacted to schedule a follow up appointment that patient declined to schedule at this time. Original Note: furniture manager had message to schedule a follow up appointment for patient with Dr. Sal. furniture manager emailed patients information to the neurology clinic. Patients information will be printed and reviewed. Clinic will call patient with appointment information.
== END 2021-11-12 18:38 | disposition home or self-care (01) ==
PROVIDERS: Emergency Provider Emergency Medicine; PCP Family Medicine
DX: R20.0 Anesthesia of skin (principal); F98.5 Adult onset fluency disorder; I50.9 Heart failure, unspecified
CPT/HCPCS: 70450; 70496; 70498; 80048; 85025; 99284; Q9967

== ENCOUNTER 2022-01-12 14:48 | Emergency (ER) | payer MEDICARE, MEDICAID, SELFPAY ==
--- NOTE | 2022-01-12 14:50 | XRR_ITS ---
PROCEDURE INFORMATION: Exam: XR Left Ankle Exam date and time: 01/12/2022 2:50 PM Age: 46 years old Clinical indication: Injury or trauma; Fall; Blunt trauma; Ankle; Left; Additional info: L ankle injury TECHNIQUE: Imaging protocol: XR Left ankle. Views: 3 or more views. COMPARISON: No relevant prior studies available. FINDINGS: Bones/joints: Osseous structures are intact. Negative for fracture. Joint spaces are preserved. Soft tissues: Normal. XR/XR ankle LT min 3V* [id number] IMPRESSION: No acute findings.
[2022-01-12 14:56] VITALS: BP 164/69; PULSE 78; RESP 16; TEMP 36.2; O2SAT 95; BMI 33.0
--- NOTE | 2022-01-12 15:01 | W.ED.EXTPRO ---
HPI - Extremity Problem General: Chief complaint: Extremity Injury, Lower Stated complaint: Fiorella cuenca injury Time Seen by Provider: 01/12/22 15:01 Source: patient Mode of arrival: wheelchair Limitations: no limitations History of Present Illness: 46-year-old female presents to the ER today for left ankle pain x24 hours. Patient reports she was working outside and stepped in a hole yesterday. She reports her ankle turned inward and she felt a pop in her ankle/foot. Patient reports she thought she could walk it off however after going to bed last night, she woke up this morning and is unable to bear weight without severe pain. She reports swelling in that area of her foot. Patient took ibuprofen this morning and has taken her home medications the rest of the day. Patient denies any prior ankle injury. Patient reports she has been using crutches at home to stay off of her foot today. Relieving factors: immobilization, elevation and rest Exacerbating factors: range of motion, weight bearing and walking Review of Systems General: Reports: 10 or more systems reviewed and unremarkable except in HPI and below Physical Exam Const: COMMON NORMALS: average body habitus, patient oriented x3, no limitations, healthy appearing, alert and well nourished Resp: COMMON NORMALS: normal respiratory effort EFFORT & INSPECTION: Yes able to speak in complete sentences Cardio: COMMON NORMALS: regular rate and regular rhythm RATE: regular rate RHYTHM: regular rhythm Extremity: LEFT LOWER EXTREMITY: Yes ankle joint Left ankle: Yes inspection (moderate swelling noted, no bruising or erythema), Yes palpation (TTP lateral L malleolus and proximal 5th metatarsal), Yes ROM (decreased in the L ankle secondary to pain) and Yes neurovascular exam (intact) Neuro: COMMON NORMALS: patient oriented x3 SENSORIUM/ORIENTATION: Yes alert Psych: COMMON NORMALS: mental status grossly normal, Normal thought process present and cooperative THOUGHT PROCESS: Normal thought process present Skin: COMMON NORMALS: no rashes or lesions noted GENERAL SKIN EXAM: no rashes or lesions noted Course ED course: 46-year-old female presents to the ER today for left ankle pain after injuring it yesterday while working in the yard. Patient is taking ibuprofen with minimal relief today. We will get an x-ray of the ankle/foot at this time. Vital Signs: Vital signs: Vital Signs Temperature 97.9 F 03/06/22 15:09 Pulse Rate 74 01/12/22 15:09 Respiratory Rate 14 01/12/22 15:09 Blood Pressure 147/70 01/12/22 15:09 Pulse Oximetry 99 01/12/22 15:09 MDM - Extremity (Nontraumatic) Medical Decision Making 46-year-old female presents to the ER today for left ankle pain after falling yesterday. Patient was working in the yard and stepped in a hole. She reports she felt a pop and had immediate left ankle pain and swelling. Patient denies any prior injury to this ankle or foot. She reports she has been taking home medications for pain. She has been using crutches at home to stay off of it. Patient concern for fracture. X-ray done in the ER does not indicate an acute fracture at this time, probable left ankle sprain. Recommend rest, ice, elevation for symptomatic relief. Okay to continue home pain medications previously prescribed. Use crutches patient has at home x1 week and then advance to weightbearing as tolerated. Follow-up with PCP in 10 to 14 days if no improvement. Return to the ER with any new or worsening symptoms. Patient verbalized understanding and is in agreement with the treatment plan. Lab Data Radiology Impressions Ankle X-Ray 01/12/22 14:50 IMPRESSION: No acute findings. Critical Care Time Critical Care Time: Critical Care Time: No Discharge Plan Discharge Patient Disposition: Home Clinical Impression: Left ankle sprain Qualifiers: Encounter type: initial encounter Condition: Stable Discharge Orders: Discharge ED (Routine); Ordered 01/12/22 Ordered By: Abbey Godoy Discharge Diet: Usual diet Discharge Activity: Increase activity as tolerated Patient Instructions: Ankle Sprain (ED), Opioid Safety Activity Restrictions/Additional Instructions: Use crutches as discussed. Continue home medications for pain. Rest, ice, elevation recommended to reduce swelling and pain. Take it easy x1 week and then ease back into walking and weightbearing. Follow-up with PCP in 10 to 14 days if no improvement. Return to the ER with any new or worsening symptoms. Coding Level of Care Code ED Oceanology Teacher for Lila Hayden Exam Detailed
[2022-01-12 15:09] VITALS: BP 147/70; PULSE 74; RESP 14; TEMP 36.6; O2SAT 99
== END 2022-01-12 16:05 | disposition home or self-care (01) ==
PROVIDERS: Emergency Provider Physician Assistant
DX: S93.402A Sprain of unspecified ligament of left ankle, initial encounter (principal); X50.1XXA Overexertion from prolonged static or awkward postures, initial encounter
CPT/HCPCS: 73610; 99282

== ENCOUNTER 2022-08-22 01:23 | Emergency (ER) | payer MEDICARE, MEDICAID, SELFPAY ==
[2022-08-22 01:25] VITALS: BP 185/93; PULSE 75; RESP 16; TEMP 36.2; O2SAT 97
--- NOTE | 2022-08-22 01:32 | W.ED.FALL ---
HPI - Fall General: Chief Complaint: Fall Stated Complaint: stroke like symptoms Time Seen by Provider: 08/22/22 01:26 Limitations: altered mental status History of Present Illness: Ms. Chester is a 47-year-old lady with complex past medical history currently including history of liver disease, heart disease, [place] tooth presenting to the emergency department for with mental status change and possible seizure-like episode. She has various concerns and history is very tangential. She reports being at a family gathering and having sudden onset of stiffness with neck muscle tension. She did not fall and was caught however otherwise would have fallen. Subsequently she endorses worsening left-sided possible weakness or numbness though she does have paresthesias at baseline. Additionally endorses chest pain and back pain. Symptoms have been intermittent in nature. Unclear if similar in the past. No other specific changes in health, exacerbating, or alleviating factors identified. Review of Systems General: Reports: ROS unobtainable due to mental status PFS ED PFSH: Medical History (Updated 08/31/22 @ 22:02 by Timmy Gan MD) No significant past medical history Surgical History (Updated 08/31/22 @ 22:02 by Timmy Gan MD) No significant past surgical history Physical Exam Const: COMMON NORMALS: patient oriented x3 and alert GENERAL APPEARANCE: cooperative and well developed HENMT: COMMON NORMALS: normocephalic and atraumatic HEAD & SCALP: normocephalic and atraumatic THROAT: posterior oropharynx normal Eye: COMMON NORMALS: conjunctivae normal CONJUNCTIVA: Yes conjunctivae normal SCLERA: sclerae normal Neck/C-Spine: COMMON NORMALS: supple GENERAL: Yes trachea midline Resp: COMMON NORMALS: clear to auscultation bilaterally EFFORT & INSPECTION: Yes able to speak in complete sentences AUSCULTATION: clear to auscultation bilaterally Cardio: COMMON NORMALS: regular rate and regular rhythm RATE: regular rate RHYTHM: regular rhythm GI: COMMON NORMALS: Soft to palpation PALPATION: Yes Soft to palpation and No Tenderness to palpation present (GI) Extremity: GENERAL: Yes normal exam except as noted and No edema Neuro: COMMON NORMALS: patient oriented x3, CN's II-XII intact bilaterally, moves all extremities, no focal motor deficits and no sensory deficits noted SENSORIUM/ORIENTATION: Yes alert and No Orientation impaired Psych: COMMON NORMALS: mental status grossly normal and Normal thought process present THOUGHT PROCESS: Normal thought process present Course Vital Signs: Vital signs: Vital Signs Temperature 97.1 F L 08/22/22 01:25 Pulse Rate 64 08/22/22 05:00 Respiratory Rate 20 H 08/22/22 05:00 Blood Pressure 180/88 08/22/22 05:00 Pulse Oximetry 96 08/22/22 05:00 Oxygen Delivery Me thod 08/22/22 01:25 MDM - Fall Medical Decision Making 47-year-old lady presenting with abnormal neurologic symptoms. No focal findings on exam. EKG with no evidence of significant cardiac pathology. Laboratory studies without clear etiology to explain symptoms. Benzodiazepines and marijuana positive on UDS. Chest x-ray with no lobar consolidation or pneumothorax. CT imaging of head negative for acute intracranial hemorrhage or mass, no large vessel occlusion or significant stenosis. Lumbar spine CT unremarkable. Patient feels significantly improved upon reassessment. Presentation will be very typical for epileptic event and may be more likely nonepileptic episode. I will refer the patient for further testing. Seizure precautions discussed. The results of ED evaluation were discussed with the patient including prescriptions and/or symptomatic cares (if applicable) including appropriate and responsible use, followup plan, and return precautions. The patient verbalized understanding and felt safe for discharge. Medical Records I reviewed the patient's medical records. Lab Data I reviewed the patient's lab results. : 08/22/22 01:46 08/22/22 01:46 Radiology Impressions Chest X-Ray 08/22/22 01:43 IMPRESSION: No acute cardiopulmonary abnormality identified. Head/Neck CTA 08/22/22 01:43 IMPRESSION: No acute intracranial abnormality. IMPRESSION: No large vessel stenosis or occlusion. IMPRESSION: 1. Limited evaluation of the arteries in the lower neck due to motion artifact. 2. No arterial abnormality identified within the limitations of this exam. COMMENTS: Consistent with the [employer]'s Incidental Findings Committee white paper (J Am Krista Radiol 2015): In patients aged 35 years and older with an incidental thyroid nodule equal to or greater than 1.[address], MRI or extrathyroidal US, further evaluation with dedicated thyroid US is recommended for patients with normal life expectancy and without comorbidities. For smaller nodules without suspicious features, no further evaluation or follow up is recommended. REFERENCES: NASCET CRITERIA. The degree of stenosis in the cervical segment of the internal carotid artery is based on NASCET criteria. Normal is no stenosis. Mild is less than 50% stenosis. Moderate is 50-69% stenosis. Severe is 70% to 99% stenosis. Total occlusion is no detectable patent lumen. Lumbar Spine CT 08/22/22 02:15 IMPRESSION: No acute fracture or traumatic malalignment in the lumbar spine. Laboratory Results WBC 11.2 10^3/uL (4.0-10.0) H 08/22/22 01:46 RBC 4.90 10^6/uL (4.1-5.3) 08/22/22 01:46 Hgb 15.5 g/dL (11.5-15.3) H 08/22/22 01:46 Hct 45.9 % (37.0-47.0) 08/22/22 01:46 MCV 93.7 fl (81-99) 08/22/22 01:46 MCH 31.6 pg (28.0-34.0) 08/22/22 01:46 MCHC 33.8 g/dL (30.0-36.0) 08/22/22 01:46 RDW 13.0 % (12.1-15.1) 08/22/22 01:46 Plt Count 361 10^3/cmm (130-400) 08/22/22 01:46 MPV 9.4 fL (7.4-10.4) 08/22/22 01:46 Neut % (Auto) 57.2 % 08/22/22 01:46 Lymph % (Auto) 28.2 % 08/22/22 01:46 [place] % (Auto) 12.3 % 08/22/22 01:46 Eos % (Auto) 1.3 % 08/22/22 01:46 Baso % (Auto) 0.6 % 08/22/22 01:46 Neut # (Auto) 6.39 10^3/uL (1.8-7.7) 08/22/22 01:46 Lymph # (Auto) 3.2 10^3/uL (0.8-4.8) 08/22/22 01:46 [place] # (Auto) 1.4 10^3/uL (0.2-0.9) H 08/22/22 01:46 Eos # (Auto) 0.2 10^3/uL (0.0-0.8) 08/22/22 01:46 Baso # (Auto) 0.1 10^3/uL (0.0-0.1) 08/22/22 01:46 Nucleated RBC % (auto) 0 % 08/22/22 01:46 Nucleated RBCs # 0.0 /100WBC 08/22/22 01:46 Sodium 139 mmol/L (136-145) 08/22/22 01:46 Potassium 4.3 mmol/L (3.5-5.1) 08/22/22 01:46 Chloride 99 mmol/L (98-107) 08/22/22 01:46 Carbon Dioxide 25 mmol/L (22-29) 08/22/22 01:46 Anion Gap 19.3 (5-19) H 08/22/22 01:46 BUN 13 mg/dL (6-20) 08/22/22 01:46 Creatinine 0.6 mg/dL (0.5-0.9) 08/22/22 01:46 GFR Calculation 106.7 mL/min (90-130) 08/22/22 01:46 Glucose 112 mg/dL (65-115) 08/22/22 01:46 POC Glucose 90 mg/dL (70-110) 08/22/22 01:45 Calculated Osmolality 289 mOsm/kg (285-295) 08/22/22 01:46 Calcium 9.9 mg/dL (8.5-10.5) 08/22/22 01:46 Total Bilirubin 1.2 mg/dL (0.15-1.2) 08/22/22 01:46 AST 19 U/L (0-32) 08/22/22 01:46 ALT 11 U/L (0-33) 08/22/22 01:46 Alkaline Phosphatase 89 U/L (35-105) 08/22/22 01:46 Total Protein 7.6 g/dL (6.6-8.7) 08/22/22 01:46 Albumin 4.7 g/dL (3.5-5.2) 08/22/22 01:46 Globulin 2.9 g/dL (1.3-4.6) 08/22/22 01:46 TSH 5.51 uIU/mL (0.27-4.20) H 08/22/22 01:46 Free T4 1.25 ng/dL (0.82-1.77) 08/22/22 01:46 Urine Color Yellow (Yellow) 08/22/22 03:11 Urine Appearance Clear (CLEAR) 08/22/22 03:11 Urine pH 5 (5-7) 08/22/22 03:11 Ur Specific [place] 1.020 (1.005-1.030) 08/22/22 03:11 Urine Protein Neg (Negative) 08/22/22 03:11 Urine Glucose (UA) Norm (Normal) 08/22/22 03:11 Urine Ketones 2+ (Negative) H 08/22/22 03:11 Urine Blood Neg (Negative) 08/22/22 03:11 Urine Nitrate Negative (Negative) 08/22/22 03:11 Urine Bilirubin Neg (Negative) 08/22/22 03:11 Urine Urobilinogen Norm mg/dL (Negative) 08/22/22 03:11 Ur Leukocyte Esterase Negative (Negative) 08/22/22 03:11 Salicylates < 0.3 mg/dL (3-10) L 08/22/22 01:46 Urine Opiates Screen Negative ng/mL (Negative) 08/22/22 03:11 Acetaminophen < 5.0 ug/mL (10-30) L 08/22/22 01:46 Ur Barbiturates Screen Negative ng/mL (Negative) 08/22/22 03:11 Ur Phencyclidine Scrn Negative ng/mL (Negative) 08/22/22 03:11 Ur Amphetamines Screen Negative ng/mL (Negative) 08/22/22 03:11 U Benzodiazepines Scrn Positive ng/mL (Negative) H 08/22/22 03:11 Urine Cocaine Screen Negative ng/mL (Negative) 08/22/22 03:11 U Marijuana (THC) Screen Positive ng/mL (Negative) H 08/22/22 03:11 Ethyl Alcohol < 10 mg/dL (0-10) 08/22/22 01:46 Discharge Plan Discharge Patient Disposition: Home Clinical Impression: Seizure-like activity, Pain Condition: Stable Discharge Orders: Discharge ED (Routine); Ordered 08/22/22 Ordered By: Timmy Gan Discharge Diet: Usual diet Discharge Activity: Limit activity as instructed Patient Instructions: Seizures Activity Restrictions/Additional Instructions: Thank you for visiting the emergency department. You were seen and evaluate for abnormal neurologic event. The exact cause of this is unclear though does not appear to need hospitalization at this time. Please follow-up with your primary care provider and establish with a neurologist. Return to the emergency department for recurrent symptoms or anything else that you are concerned about a feel needs emergency department evaluation. Coding Level of Care Code ED Dental Lab Technician for Lila Hayden
--- NOTE | 2022-08-22 01:37 | ECG_ITS ---
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 Measurements Intervals [place] Rate: 67 P: 71 [place]: 182 QRS: 13 QRSD: 104 T: 44 QT: 418 QTc: 442 Interpretive Statements SINUS RHYTHM No previous ECG available for comparison Electronically Signed On 08-22-2022 16:32:53 CDT by Remington Grant M.D. [id number]
--- NOTE | 2022-08-22 01:43 | CTR_ITS ---
PROCEDURE INFORMATION: Exam: CT Head Without Contrast Exam date and time: 08/22/2022 2:25 AM Age: 47 years old Clinical indication: Syncope and collapse and weakness; Prior surgery; Surgery type: Cervical fusion. Patient HX: Patient had witnessed fall with family. Possible seizure activity. Patient has left side weakness with headache. ; Additional info: ? Seizure, new onset, AMS, ? left sided weakness TECHNIQUE: Imaging protocol: Computed tomography of the head without contrast. COMPARISON: No relevant prior studies available. FINDINGS: Brain: No acute hemorrhage identified. No large territorial areas of hypoattenuation concerning for ischemic infarct identified. No intracranial mass effect. Cerebral ventricles: The ventricles are within normal limits. Paranasal sinuses: The visualized sinuses are unremarkable. Mastoid air cells: The visualized mastoid air cells are well aerated. Bones/joints: The osseous structures are intact. Soft tissues: Unremarkable. PROCEDURE INFORMATION: Exam: CTA Head With Contrast, Arteriography Exam date and time: 08/22/2022 2:25 AM Age: 47 years old Clinical indication: Syncope and collapse and weakness; Prior surgery; Surgery type: Cervical fusion. Patient HX: Patient had witnessed fall with family. Possible seizure activity. Patient has left side weakness with headache. ; Additional info: ? Seizure, new onset, AMS, ? left sided weakness TECHNIQUE: Imaging protocol: Computed tomographic angiography of the head with contrast. Exam focused on the arteries. 3D rendering (Not supervised by radiologist): MIP and/or 3D reconstructed images were created by the technologist. Radiation optimization: All CT scans at this facility use at least one of these dose optimization techniques: automated exposure control; mA and/or kV adjustment per patient size (includes targeted exams where dose is matched to clinical indication); or iterative reconstruction. Contrast material: OMNI 350; Contrast volume: 100 ml; Contrast route: INTRAVENOUS (IV); COMPARISON: No relevant prior studies available. RADIATION DOSE METRICS: Total DLP (mGy-cm): 1044.22 FINDINGS: ANTERIOR CIRCULATION: Right internal carotid artery: Intracranial segment is patent with no significant stenosis. No aneurysm. Right middle cerebral artery: No occlusion or significant stenosis. No aneurysm. Right anterior cerebral artery: No occlusion or significant stenosis. No aneurysm. Left internal carotid artery: Intracranial segment is patent with no significant stenosis. No aneurysm. Left middle cerebral artery: No occlusion or significant stenosis. No aneurysm. Left anterior cerebral artery: No occlusion or significant stenosis. No aneurysm. POSTERIOR CIRCULATION: Right vertebral artery: No occlusion or significant stenosis. No aneurysm. Left vertebral artery: No occlusion or significant stenosis. No aneurysm. Basilar artery: No occlusion or significant stenosis. No aneurysm. Right posterior cerebral artery: No occlusion or significant stenosis. No aneurysm. Left posterior cerebral artery: No occlusion or significant stenosis. No aneurysm. Brain: No definite mass, mass effect, or midline shift. Cerebral ventricles: No ventriculomegaly. Bones/joints: Unremarkable. No acute fracture. Soft tissues: Unremarkable. PROCEDURE INFORMATION: Exam: CTA Neck With Contrast Exam date and time: 08/22/2022 2:25 AM Age: 47 years old Clinical indication: Syncope and collapse and weakness; Prior surgery; Surgery type: Cervical fusion. Patient HX: Patient had witnessed fall with family. Possible seizure activity. Patient has left side weakness with headache. ; Additional info: ? Seizure, new onset, AMS, ? left sided weakness TECHNIQUE: Imaging protocol: Computed tomographic angiography of the neck with contrast. 3D rendering (Not supervised by radiologist): MIP and/or 3D reconstructed images were created by the technologist. Radiation optimization: All CT scans at this facility use at least one of these dose optimization techniques: automated exposure control; mA and/or kV adjustment per patient size (includes targeted exams where dose is matched to clinical indication); or iterative reconstruction. Contrast material: OMNI 350; Contrast volume: 100 ml; Contrast route: INTRAVENOUS (IV); COMPARISON: CR (CHEST, ) 08/22/2022 2:13 AM RADIATION DOSE METRICS: Total DLP (mGy-cm): 1044.22 FINDINGS: Right common carotid artery: No stenosis. No dissection or occlusion. Right internal carotid artery: No stenosis of the extracranial segment. No dissection or occlusion. Right external carotid artery: No occlusion or stenosis of the origin. Left common carotid artery: No stenosis. No dissection or occlusion. Left internal carotid artery: No stenosis of the extracranial segment. No dissection or occlusion. Left external carotid artery: No occlusion or stenosis of the origin. Right vertebral artery: No stenosis. No dissection or occlusion. Left vertebral artery: No stenosis. No dissection or occlusion. Other arteries: Limited evaluation of the arteries in the lower neck due to motion artifact. Thyroid: Poorly visualized calcified nodule in the right lobe of the thyroid. Soft tissues: Normal. No significant soft tissue swelling. Bones/joints: Anterior cervical spinal fixation hardware noted at C5-C6 with intervertebral disc spacer . Fusion of the C5 and C6 vertebral bodies. Loss of intervertebral disc height with endplate degenerative changes at C6-C7 and C7-T1. CT/CT angio headneck* [id number] IMPRESSION: No acute intracranial abnormality. IMPRESSION: No large vessel stenosis or occlusion. IMPRESSION: 1. Limited evaluation of the arteries in the lower neck due to motion artifact. 2. No arterial abnormality identified within the limitations of this exam. COMMENTS: Consistent with the [employer]'s Incidental Findings Committee white paper (J Am Krista Radiol 2015): In patients aged 35 years and older with an incidental thyroid nodule equal to or greater than 1.[address], MRI or extrathyroidal US, further evaluation with dedicated thyroid US is recommended for patients with normal life expectancy and without comorbidities. For smaller nodules without suspicious features, no further evaluation or follow up is recommended. REFERENCES: NASCET CRITERIA. The degree of stenosis in the cervical segment of the internal carotid artery is based on NASCET criteria. Normal is no stenosis. Mild is less than 50% stenosis. Moderate is 50-69% stenosis. Severe is 70% to 99% stenosis. Total occlusion is no detectable patent lumen.
--- NOTE | 2022-08-22 01:43 | XRR_ITS ---
PROCEDURE INFORMATION: Exam: XR Chest Exam date and time: 08/22/2022 2:13 AM Age: 47 years old Clinical indication: Prior surgery; Surgery type: Cervical fusion; Patient HX: Fall with possible seizure. ; Additional info: ? Seizure, AMS TECHNIQUE: Imaging protocol: Radiologic exam of the chest. Views: 1 view. COMPARISON: No relevant prior studies available. FINDINGS: Lungs: The lung parenchyma is clear. Pleural spaces: No pneumothorax. No pleural effusion. Heart/Mediastinum: The cardiomediastinal silhouette is within normal limits. Bones/joints: Cervical spinal fixation hardware noted. XR/XR chest 1V portable [id number] IMPRESSION: No acute cardiopulmonary abnormality identified.
[2022-08-22 01:53] LABS: Glucose Point of Care 90 mg/dL (70-110)
[2022-08-22 01:53] LABS: Basophils # 0.1 10^3/uL (0.0-0.1); Basophils % 0.6 %; Eosinophils # 0.2 10^3/uL (0.0-0.8); Eosinophils % 1.3 %; Hematocrit 45.9 % (37.0-47.0); Hemoglobin 15.5 g/dL (11.5-15.3); Lymphocytes # 3.2 10^3/uL (0.8-4.8); Lymphocytes % 28.2 %; Mean Corpuscular HGB Conc 33.8 g/dL (30.0-36.0); Mean Corpuscular Hemoglobin 31.6 pg (28.0-34.0); Mean Corpuscular Volume 93.7 fl (81-99); Mean Platelet Volume 9.4 fL (7.4-10.4); Monocytes # 1.4 10^3/uL (0.2-0.9); Monocytes % 12.3 %; Neutrophils # 6.39 10^3/uL (1.8-7.7); Neutrophils % 57.2 %; Nucleated Red Blood Cells % 0 %; Platelet Count 361 10^3/cmm (130-400); White Blood Count 11.2 10^3/uL (4.0-10.0)
[2022-08-22] MEDS: LORazepam 1 mg Tablet PO (02:02)
[2022-08-22 02:15] VITALS: BP 181/94; PULSE 56; RESP 17; O2SAT 95
--- NOTE | 2022-08-22 02:15 | CTR_ITS ---
PROCEDURE INFORMATION: Exam: CT Lumbar Spine Without Contrast Exam date and time: 08/22/2022 2:21 AM Age: 47 years old Clinical indication: Injury or trauma; Blunt trauma (contusions or hematomas); Patient HX: Patient had witnessed fall with possible seizure. C/O low back pain. TECHNIQUE: Imaging protocol: Computed tomography of the lumbar spine without contrast. Radiation optimization: All CT scans at this facility use at least one of these dose optimization techniques: automated exposure control; mA and/or kV adjustment per patient size (includes targeted exams where dose is matched to clinical indication); or iterative reconstruction. COMPARISON: No relevant prior studies available. RADIATION DOSE METRICS: Total DLP (mGy-cm): 1094.14 FINDINGS: Bones/joints: The lumbar spine maintains a normal lordotic curvature. Minimal leftward curvature of the lumbar spine centered at L3. No spondylolisthesis. The vertebral bodies maintain normal height. No fracture. Loss of intervertebral disc height at L5-S1 with endplate degenerative changes. Prominent facet arthropathy at L4-L5 and L5-S1. Soft tissues: The paravertebral soft tissues are unremarkable. CT/CT lumbar spine wo con* [id number] IMPRESSION: No acute fracture or traumatic malalignment in the lumbar spine.
[2022-08-22 02:21] LABS: Alanine Aminotransferase 11 U/L (0-33); Albumin Level 4.7 g/dL (3.5-5.2); Alkaline Phosphatase 89 U/L (35-105); Anion Gap 19.3 (5-19); Aspartate Amino Transferase 19 U/L (0-32); Blood Urea Nitrogen 13 mg/dL (6-20); Calcium 9.9 mg/dL (8.5-10.5); Carbon Dioxide 25 mmol/L (22-29); Chloride 99 mmol/L (98-107); Globulin 2.9 g/dL (1.3-4.6); Glomerular Filtration Rate 106.7 mL/min (90-130); Glucose 112 mg/dL (65-115); Osmolality Calculated 289 mOsm/kg (285-295); Potassium 4.3 mmol/L (3.5-5.1); Sodium 139 mmol/L (136-145); Thyroid Stimulating Hormone 5.51 uIU/mL (0.27-4.20); Total Bilirubin 1.2 mg/dL (0.15-1.2); Total Protein 7.6 g/dL (6.6-8.7)
[2022-08-22 02:24] LABS: Acetaminophen < 5.0 ug/mL (10-30); Alcohol Level < 10 mg/dL (0-10); Salicylate < 0.3 mg/dL (3-10)
[2022-08-22] MEDS: ibuprofen 600 mg Tablet PO (02:36)
[2022-08-22] MEDS: iohexol 350 mg/mL 100 mL Btl IV (02:43)
[2022-08-22 02:53] LABS: Free T4 Free Thyroxine 1.25 ng/dL (0.82-1.77)
[2022-08-22 03:01] VITALS: BP 183/90; PULSE 58; RESP 14; O2SAT 96
[2022-08-22 03:31] LABS: Add Urine Microscopic? NO; Charge for UA Resulting for Rev
[2022-08-22 03:42] LABS: Bilirubin Urine Neg (Negative); Blood Urine Neg (Negative); Glucose Urine UA Norm (Normal); Ketones Urine 2+ (Negative); Leukocyte Esterase Urine Negative (Negative); Nitrate Urine Negative (Negative); Protein Urine Neg (Negative); Urine Appearance Clear (CLEAR); Urine Color Yellow (Yellow); Urobilinogen Urine Norm (Negative); pH Urine 5 (5-7)
[2022-08-22 03:45] LABS: Amphetamines Screen Urine Negative (Negative); Barbiturates Screen Urine Negative (Negative); Benzodiazepines Screen Urine Positive (Negative); Cocaine Screen Urine Negative (Negative); Opiate Screen Urine Negative (Negative); PCP Screen Urine Negative (Negative); THC Screen Urine Positive (Negative)
[2022-08-22 04:04] VITALS: BP 152/76; PULSE 58; RESP 18; O2SAT 98
[2022-08-22 05:00] VITALS: BP 180/88; PULSE 64; RESP 20; O2SAT 96
== END 2022-08-22 05:27 | disposition home or self-care (01) ==
PROVIDERS: Emergency Provider Emergency Medicine
DX: R56.9 Unspecified convulsions (principal); R52 Pain, unspecified
CPT/HCPCS: 36416; 70496; 70498; 71045; 72131; 80053; 80306; 80307; 81003; 82962; 84439; 84443; 85025; 93005; 99285; Q9967

== ENCOUNTER 2022-09-25 18:01 | Emergency (ER) | payer MEDICARE, MEDICAID, SELFPAY ==
[2022-09-25 18:35] VITALS: BMI 34.7
[2022-09-25 18:44] VITALS: BP 136/90; PULSE 63; RESP 18; TEMP 36.4; O2SAT 98
--- NOTE | 2022-09-25 21:27 | W.ED.FEMALGU ---
HPI - Female Genitourinary General: Chief complaint: Urogenital-Female Stated complaint: Lower ABD Time Seen by Provider: 09/25/22 21:15 Source: patient Mode of arrival: ambulatory Limitations: no limitations History of Present Illness: 47-year-old female who states that she has had lower abdominal pain along with dysuria over the last 2 days she states this feels like previous urinary tract infection states it jefferson extreme when she pees she rates her pain a 6 out of 10 currently she denies any fever denies any vomiting or diarrhea denies any flank pain Associated symptoms: Reports abdominal pain; Deny headache(s) Review of Systems Const: Denies: fever(s), chills, body aches or change in appetite Eyes: Denies: blurry vision or eye discomfort ENMT: Denies: throat pain or dental pain Card: Denies: chest pain Resp: Denies: dyspnea GI: Reports: abdominal pain : Reports: dysuria Musc: Denies: neck pain or back pain Skin/Breast: Denies: rash Neuro: Denies: headache(s) Psych: Denies: depression Brian/Lymph: Denies: easy bruising All/Imm: Denies: urticaria PFSH ED PFSH: Medical History No significant past medical history Surgical History No significant past surgical history Social History (Updated 09/25/22 @ 21:27 by Danyel Souza MD) Substance/Drug Use: never Physical Exam Const: COMMON NORMALS: no acute distress, patient oriented x3 and healthy appearing HENMT: COMMON NORMALS: normocephalic and atraumatic HEAD & SCALP: normocephalic and atraumatic Eye: COMMON NORMALS: Equal, round and reactive pupils present and EOMs intact bilaterally PUPIL: Yes Equal, round and reactive pupils present Neck/C-Spine: COMMON NORMALS: full ROM and supple Chest: COMMONS NORMALS: normal inspection of the chest and normal palpation of entire chest wall Resp: COMMON NORMALS: normal respiratory effort, No retractions, No use of accessory muscles and clear to auscultation bilaterally AUSCULTATION: clear to auscultation bilaterally Cardio: COMMON NORMALS: regular rate, regular rhythm and No murmurs present (Cardio) RATE: regular rate RHYTHM: regular rhythm GI: COMMON NORMALS: Normal to inspection, nondistended, normoactive bowel sounds present, Soft to palpation, non-tender and no masses PALPATION: Yes Soft to palpation Extremity: COMMON NORMALS: normal to inspection and full ROM Neuro: COMMON NORMALS: patient oriented x3, moves all extremities and no focal motor deficits Psych: COMMON NORMALS: mental status grossly normal, Normal thought process present and cooperative THOUGHT PROCESS: Normal thought process present Skin: COMMON NORMALS: no rashes or lesions noted and no wounds GENERAL SKIN EXAM: no rashes or lesions noted Course Vital Signs: Vital signs: Vital Signs Temperature 97.6 F 09/25/22 18:44 Pulse Rate 63 09/25/22 18:44 Respiratory Rate 18 09/25/22 21:44 Blood Pressure 136/90 09/25/22 18:44 Pulse Oximetry 98 09/25/22 18:44 Oxygen Delivery Me thod 09/25/22 18:44 MDM - Female Medical Decision Making Patient presents for dysuria along with lower abdominal pain consistent with urinary tract infection she is well-appearing here blood works normal abdominal exam is benign we will place her on antibiotics for UTI she is to follow-up with her PCP and return if worsening she understands agrees to plan. Lab Data 09/25/22 21:45 09/25/22 21:45 Laboratory Results WBC 9.1 10^3/uL (4.0-10.0) 09/25/22 21:45 RBC 5.13 10^6/uL (4.1-5.3) 09/25/22 21:45 Hgb 16.2 g/dL (11.5-15.3) H 09/25/22 21:45 Hct 48.2 % (37.0-47.0) H 09/25/22 21:45 MCV 94.0 fl (81-99) 09/25/22 21:45 MCH 31.6 pg (28.0-34.0) 09/25/22 21:45 MCHC 33.6 g/dL (30.0-36.0) 09/25/22 21:45 RDW 12.8 % (12.1-15.1) 09/25/22 21:45 Plt Count 336 10^3/cmm (130-400) 09/25/22 21:45 MPV 9.0 fL (7.4-10.4) 09/25/22 21:45 Neut % (Auto) 51.0 % 09/25/22 21:45 Lymph % (Auto) 33.7 % 09/25/22 21:45 [place] % (Auto) 10.3 % 09/25/22 21:45 Eos % (Auto) 4.0 % 09/25/22 21:45 Baso % (Auto) 0.7 % 09/25/22 21:45 Neut # (Auto) 4.63 10^3/uL (1.8-7.7) 09/25/22 21:45 Lymph # (Auto) 3.1 10^3/uL (0.8-4.8) 09/25/22 21:45 [place] # (Auto) 0.9 10^3/uL (0.2-0.9) 09/25/22 21:45 Eos # (Auto) 0.4 10^3/uL (0.0-0.8) 09/25/22 21:45 Baso # (Auto) 0.1 10^3/uL (0.0-0.1) 09/25/22 21:45 Nucleated RBC % (auto) 0 % 09/25/22 21:45 Nucleated RBCs # 0.0 /100WBC 09/25/22 21:45 Sodium 138 mmol/L (136-145) 09/25/22 21:45 Potassium 4.1 mmol/L (3.5-5.1) 09/25/22 21:45 Chloride 101 mmol/L (98-107) 09/25/22 21:45 Carbon Dioxide 27 mmol/L (22-29) 09/25/22 21:45 Anion Gap 14.1 (5-19) 09/25/22 21:45 BUN 15 mg/dL (6-20) 09/25/22 21:45 Creatinine 0.6 mg/dL (0.5-0.9) 09/25/22 21:45 GFR Calculation 106.7 mL/min (90-130) 09/25/22 21:45 Glucose 75 mg/dL (65-115) 09/25/22 21:45 Calculated Osmolality 286 mOsm/kg (285-295) 09/25/22 21:45 Calcium 9.4 mg/dL (8.5-10.5) 09/25/22 21:45 Total Bilirubin 0.5 mg/dL (0.15-1.2) 09/25/22 21:45 AST 18 U/L (0-32) 09/25/22 21:45 ALT 17 U/L (0-33) 09/25/22 21:45 Alkaline Phosphatase 99 U/L (35-105) 09/25/22 21:45 Total Protein 7.6 g/dL (6.6-8.7) 09/25/22 21:45 Albumin 4.2 g/dL (3.5-5.2) 09/25/22 21:45 Globulin 3.4 g/dL (1.3-4.6) 09/25/22 21:45 Lipase 140 U/L (13-60) H 09/25/22 21:45 HCG, Qual Negative (Negative) 09/25/22 21:45 Urine Color Yellow (Yellow) 09/25/22 18:50 Urine Appearance Cloudy (CLEAR) A 09/25/22 18:50 Urine pH 5 (5-7) 09/25/22 18:50 Ur Specific [place] 1.030 (1.005-1.030) 09/25/22 18:50 Urine Protein 1+ (Negative) H 09/25/22 18:50 Urine Glucose (UA) Norm (Normal) 09/25/22 18:50 Urine Ketones Negative (Negative) 09/25/22 18:50 Urine Blood 3+ (Negative) H 09/25/22 18:50 Urine Nitrate Positive (Negative) H 09/25/22 18:50 Urine Bilirubin Neg (Negative) 09/25/22 18:50 Urine Urobilinogen Norm mg/dL (Negative) 09/25/22 18:50 Ur Leukocyte Esterase 2+ (Negative) H 09/25/22 18:50 Urine RBC Too numerous to cnt /hpf (0-2) H 09/25/22 18:50 Urine WBC Too numerous to cnt /hpf (0-5) H 09/25/22 18:50 Ur Squamous Epith Cells 10-15 /hpf (0-5) H 09/25/22 18:50 Amorphous Sediment Not Reportable 09/25/22 18:50 Urine Bacteria 4+ /hpf (NONE) H 09/25/22 18:50 Discharge Plan Discharge Patient Disposition: Home Clinical Impression: Urinary tract infection Prescriptions: New hydrocodone-acetaminophen 5-325 mg tablet 1 tab PO Q6H PRN (Reason: pain) Qty: 14 0RF cephalexin 500 mg capsule 500 mg PO TID 7 Days Qty: 21 0RF Discharge Orders: Discharge ED (Routine); Ordered 09/25/22 Ordered By: Danyel Souza Referrals: Edward Britton MD [Primary Care Provider] - 1-3 days Discharge Diet: Advance as tolerated Discharge Activity: Resume usual activity Coding Level of Care Code ED [employer] Prom[employer] Coordinator for Chg Fwd Exam Comprehensive
[2022-09-25 21:44] VITALS: RESP 18
[2022-09-25] MEDS: ondansetron 2 mg/ML SDV 2 mL 4 MG IVP (21:44)
[2022-09-25] MEDS: HYDROmorphone 1 mg/mL INJ 1 mL 0.5 MG IVP (21:44)
[2022-09-25 21:50] LABS: Basophils # 0.1 10^3/uL (0.0-0.1); Basophils % 0.7 %; Eosinophils # 0.4 10^3/uL (0.0-0.8); Hematocrit 48.2 % (37.0-47.0); Hemoglobin 16.2 g/dL (11.5-15.3); Lymphocytes # 3.1 10^3/uL (0.8-4.8); Lymphocytes % 33.7 %; Mean Corpuscular HGB Conc 33.6 g/dL (30.0-36.0); Mean Corpuscular Hemoglobin 31.6 pg (28.0-34.0); Monocytes # 0.9 10^3/uL (0.2-0.9); Monocytes % 10.3 %; Neutrophils # 4.63 10^3/uL (1.8-7.7); Nucleated Red Blood Cells % 0 %; Platelet Count 336 10^3/cmm (130-400); Red Blood Count 5.13 10^6/uL (4.1-5.3); Red Cell Distribution Width 12.8 % (12.1-15.1); White Blood Count 9.1 10^3/uL (4.0-10.0)
[2022-09-25 21:58] LABS: Blood Urine 3+ (Negative); Glucose Urine UA Norm (Normal); Ketones Urine Negative (Negative); Protein Urine 1+ (Negative); Urine Appearance Cloudy (CLEAR); Urine Color Yellow (Yellow); pH Urine 5 (5-7)
[2022-09-25 21:59] LABS: Add Urine Culture? Yes; Add Urine Microscopic? YES; Bacteria Urine 4+ /hpf; Bilirubin Urine Neg (Negative); Leukocyte Esterase Urine 2+ (Negative); Nitrate Urine Positive (Negative); RBC Urine TOO NUMEROUS TO CNT /hpf (0-2); Urobilinogen Urine Norm (Negative); WBC Urine TOO NUMEROUS TO CNT /hpf (0-5)
[2022-09-25 22:02] LABS: HCG, Serum Qual Negative (Negative)
[2022-09-25 22:06] LABS: Alanine Aminotransferase 17 U/L (0-33); Albumin Level 4.2 g/dL (3.5-5.2); Alkaline Phosphatase 99 U/L (35-105); Anion Gap 14.1 (5-19); Aspartate Amino Transferase 18 U/L (0-32); Blood Urea Nitrogen 15 mg/dL (6-20); Calcium 9.4 mg/dL (8.5-10.5); Carbon Dioxide 27 mmol/L (22-29); Chloride 101 mmol/L (98-107); Globulin 3.4 g/dL (1.3-4.6); Glomerular Filtration Rate 106.7 mL/min (90-130); Glucose 75 mg/dL (65-115); Lipase 140 U/L (13-60); Osmolality Calculated 286 mOsm/kg (285-295); Potassium 4.1 mmol/L (3.5-5.1); Sodium 138 mmol/L (136-145); Total Bilirubin 0.5 mg/dL (0.15-1.2); Total Protein 7.6 g/dL (6.6-8.7)
[2022-09-25] MEDS: cefTRIAXone 1,000 MG in sodium chloride 0.9% (plus) 50 ML 100 MG IV (22:16)
[2022-09-25 23:12] VITALS: BP 129/95; PULSE 64; RESP 16; O2SAT 96
== END 2022-09-25 22:55 | disposition home or self-care (01) ==
PROVIDERS: Emergency Provider Emergency Medicine; PCP Family Medicine
DX: N39.0 Urinary tract infection, site not specified (principal)
CPT/HCPCS: 80053; 81001; 83690; 84703; 85025; 87077; 87086; 87186; 96365; 96375; 99284; J0696; J1170; J2405

== ENCOUNTER → 2022-10-14 15:41 | Outpatient (BNVA) | payer MEDICARE, MEDICAID, SELFPAY | PROVIDERS: PCP Family Medicine; Visit Provider Obstetrics & Gynecology | DX: R39.15 Urgency of urination (principal) | CPT/HCPCS: 81000 ==

== ENCOUNTER 2023-02-03 14:05 | Outpatient (CLI) | payer MEDICARE, MEDICAID, SELFPAY ==
--- NOTE | 2023-02-03 14:24 | MM_ITS ---
WS: [id number] BILATERAL 3D TOMOSYNTHESIS DIGITAL DIAGNOSTIC MAMMOGRAPHY WITH CAD CLINICAL INFORMATION: SCREENING HISTORY: History of LEFT breast cancer. COMPARISON: 2020 TECHNIQUE: Bilateral CC, MLO, and ML views. FINDINGS: Scattered fibroglandular densities bilaterally. A few incidental punctate calcifications. Nodularity deep to the RIGHT areola unchanged since 2020 No suspicious focal mass, asymmetry, calcifications, or architectural distortion. No evidence of janice gnancy. MM/[place] [id number] IMPRESSION: BI-RADS: 2-Benign FOLLOW UP: 1 Year Follow-up Recommend return to annual diagnostic mammography.
== END 2023-02-03 14:06 | disposition home or self-care (01) ==
LOC: RAD 14:06
PROVIDERS: PCP Family Medicine; Visit Provider Family Medicine
DX: Z85.3 Personal history of malignant neoplasm of breast (principal)
CPT/HCPCS: 77062; G0279

== ENCOUNTER 2023-11-01 02:13 | Inpatient (IN) | payer MEDICARE, MEDICAID, SELFPAY ==
[2023-11-01] VITALS (51 sets, daily range): BP systolic 136–206; BP diastolic 61–138; PULSE 59–96; RESP 0–28; TEMP 36.6–37.3; O2SAT 88–100; BMI 27.4
--- NOTE | 2023-11-01 02:28 | XRR_ITS ---
PROCEDURE INFORMATION: Exam: XR Chest Exam date and time: 11/01/2023 2:31 AM Age: 48 years old Clinical indication: Prior surgery; Surgery date: 6+ months; Surgery type: Cervical fusion; Patient HX: EMS arrival for AMS. TECHNIQUE: Imaging protocol: Radiologic exam of the chest. Views: 1 view. COMPARISON: CR XR chest 1V portable [id number] 08/22/2022 2:13 AM FINDINGS: Lungs: Unremarkable. No consolidation. Pleural spaces: Unremarkable. No pleural effusion. No pneumothorax. Heart/Mediastinum: Unremarkable. No cardiomegaly. Bones/joints: ACDF. Negative for acute thoracic fracture. XR/XR chest 1V portable [id number] IMPRESSION: Negative for acute chest pathology.
--- NOTE | 2023-11-01 02:29 | ECG_ITS ---
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 Measurements Intervals [place] Rate: 64 P: 35 [place]: 135 QRS: 47 QRSD: 87 T: 71 QT: 388 QTc: 402 Interpretive Statements SINUS RHYTHM Compared to ECG 10/14/2021 10:25:52 Sinus bradycardia no longer present Sinus arrhythmia no longer present Electronically Signed On 11-01-2023 9:58:21 ADMINISTRATIVE RECEPTIONIST by Michael Magaña M.D. [email or web address]
[2023-11-01 02:31] LABS: Glucose Point of Care 191 mg/dL (70-110)
[2023-11-01 02:43] LABS: Basophils # 0.1 10^3/uL (0.0-0.1); Basophils % 0.3 %; Eosinophils # 0.1 10^3/uL (0.0-0.8); Eosinophils % 0.3 %; Hematocrit 46.8 % (36-47); Lymphocytes # 1.2 10^3/uL (0.8-4.8); Mean Corpuscular HGB Conc 33.5 g/dL (30-55); Mean Corpuscular Hemoglobin 32.4 pg (27-33); Mean Corpuscular Volume 96.7 fl (85-98); Mean Platelet Volume 9.4 fL (7.4-10.4); Monocytes # 1.2 10^3/uL (0.2-0.9); Monocytes % 4.9 %; Neutrophils # 22.08 10^3/uL (1.8-7.7); Neutrophils % 88.5 %; Nucleated Red Blood Cells % 0 %; Platelet Count 300 10^3/cmm (157-399); Red Blood Count 4.84 10^6/uL (3.85-5.65); Red Cell Distribution Width 12.8 % (12.1-15.1); White Blood Count 24.91 10^3/uL (3.29-11.43)
[2023-11-01 03:00] LABS: Troponin(5th) Baseline 50 ng/L (0-10)
[2023-11-01] MEDS: sodium chloride 0.9% 1,000 ML 999 ML IV (03:02)
[2023-11-01 03:03] LABS: Alanine Aminotransferase 34 U/L (0-33); Albumin Level 3.9 g/dL (3.5-5.2); Alkaline Phosphatase 113 U/L (35-105); Anion Gap 17.1 (5-19); Aspartate Amino Transferase 41 U/L (0-32); Blood Urea Nitrogen 16 mg/dL (6-20); Calcium 9.4 mg/dL (8.5-10.5); Carbon Dioxide 26 mmol/L (22-29); Chloride 104 mmol/L (98-107); Globulin 2.3 g/dL (1.3-4.6); Glomerular Filtration Rate 52.8 mL/min (90-130); Glucose 126 mg/dL (65-115); Magnesium 1.7 mg/dL (1.7-2.3); Osmolality Calculated 301 mOsm/kg (285-295); Potassium 3.1 mmol/L (3.5-5.1); Sodium 144 mmol/L (136-145); Total Bilirubin 0.4 mg/dL (0.15-1.2); Total Protein 6.2 g/dL (6.6-8.7)
[2023-11-01 03:04] LABS: Acetaminophen < 5.0 ug/mL (10-30); Alcohol Level < 10 mg/dL (0-10); Salicylate < 0.3 mg/dL (3-10)
[2023-11-01 03:05] LABS: HCG, Serum Qual Negative (Negative)
--- NOTE | 2023-11-01 03:25 | CTR_ITS ---
PROCEDURE INFORMATION: Exam: CT Abdomen And Pelvis With Contrast Exam date and time: 11/01/2023 3:47 AM Age: 48 years old Clinical indication: Pain and abnormal findings; Abnormal lab test; Elevated wbc; Abdominal pain; Generalized; Prior surgery; Surgery date: 6+ months; Surgery type: Hysterectomy. Bladder sling. Csection; Patient HX: Diffuse abd pain with diarrhea. Positive hemocult. Wbc of 24k. ; Additional info: Gi bleed TECHNIQUE: Imaging protocol: Computed tomography of the abdomen and pelvis with contrast. Radiation optimization: All CT scans at this facility use at least one of these dose optimization techniques: automated exposure control; mA and/or kV adjustment per patient size (includes targeted exams where dose is matched to clinical indication); or iterative reconstruction. Contrast material: OMNI 350; Contrast volume: 100 ml; Contrast route: INTRAVENOUS (IV); REPORTING DATA: Count of CT and Cardiac NM exams in prior 12 months: This patient has received 0 known CTs and 0 known cardiac nuclear medicine studies in the 12 months prior to the current study. COMPARISON: 1. CT Abdomen/Pelvis wo I 04/19/2013 9:[address] lumbar spine wo con* [id number] 08/22/2022 2:21 AM RADIATION DOSE METRICS: Total DLP (mGy-cm): 903.83 FINDINGS: Liver: Several tiny low-attenuation liver lesions measuring less than 1 cm too small further characterize without change from remote comparison. Gallbladder and bile ducts: Normal. No calcified stones. No ductal dilation. Pancreas: Normal. No ductal dilation. Spleen: Normal. No splenomegaly. Adrenal glands: Normal. No mass. Kidneys and ureters: Normal. No hydronephrosis. Stomach and bowel: Mild diffuse inflammatory wall thickening of the mid transverse colon extending distally through the sigmoid colon. Mild pericolonic stranding changes. No focal mass identified. Negative pneumatosis intestinalis. No visible intraluminal contrast extravasation. Appendix: No evidence of appendicitis. Intraperitoneal space: Unremarkable. No free air. No significant fluid collection. Vasculature: Unremarkable. No abdominal aortic aneurysm. Lymph nodes: Unremarkable. No enlarged lymph nodes. Urinary bladder: Unremarkable as visualized. Reproductive: Hysterectomy. Bones/joints: Unremarkable. No acute fracture. Grade 1 L4-L5 spondylolisthesis. Relatively severe L5-S1 disc disease. Soft tissues: Unremarkable. CT/CT abdomen pelvis w con* [id number] IMPRESSION: 1. Nonspecific colitis pattern. 2. No visible active gastrointestinal bleeding.
--- NOTE | 2023-11-01 03:44 | ED_ITS ---
HPI - Altered Mental Status 2 General: Chief Complaint: Altered Mental Status Stated Complaint: AMS Time Seen by Provider: 11/01/23 02:18 History of Present Illness: 48-year-old female with chronic pain med ication as well as benzodiazepines. She presents with altered mental status, and multiple episodes of diarrhea. Evidently, she had been vomiting and had diarrhea. She was found unresponsive on the toilet by her son. He administered Narcan, which arouse the patient. She continued to have multiple episodes of diarrhea, and on EMS arrival began to panic to some degree according to them. She was given lorazepam intramuscularly which seemed to help to some degree. She presents with abdominal pain and cramping. Her mental status is improved significantly, near baseline. She continues to have significant amounts of diarrhea in the ER. 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 History of hysterectomy 1998 History of delivery 1998 History of vaginal surgery History of left breast biopsy Breast cancer of left breast removed in 2005. Family History (System 10/22/22 @ 16:18 by Brenda Farmer) Sister Anesthesia complication Mother Cancer Lung cancer and back cancer Lung disease Diabetes Father Diabetes Other Hypertension Psychiatric illness Denies family history of CAD (coronary artery disease) Clotting disorder Dementia Hyperlipidemia Chronic kidney disease (CKD) Suicide Bleeding disorder Family history of premature coronary artery disease Stroke Social History Substance/Drug Use: never Physical Exam 2 Const: GENERAL APPEARANCE: cooperative, in distress and anxious HENMT: COMMON NORMALS: normocephalic, atraumatic and Normal external nose present HEAD & SCALP: normocephalic and atraumatic FACE & SINUS: normal facial exam NOSE: Normal external nose present MOUTH: Abnormal oral and palatal mucosa present (parched) Eye: COMMON NORMALS: Equal, round and reactive pupils present and EOMs intact bilaterally PUPIL: Yes Equal, round and reactive pupils present Neck/C-Spine: COMMON NORMALS: no lymphadenopathy and supple Chest: CHEST: Yes Symmetrical chest wall rise Resp: COMMON NORMALS: normal respiratory effort, No use of accessory muscles and clear to auscultation bilaterally AUSCULTATION: clear to auscultation bilaterally Cardio: COMMON NORMALS: regular rate and regular rhythm RATE: regular rate RHYTHM: regular rhythm GI: COMMON NORMALS: Normal to inspection, nondistended, normoactive bowel sounds present PALPATION: Yes Tenderness to palpation present (GI) Details: LLQ and RLQ Extremity: COMMON NORMALS: no pedal edema Neuro: NIKOLE COMA SCALE: document GCS findings Nikole coma scale eye opening: Spontaneous Nikole coma scale verbal response: Orientated Nikole coma scale motor response: Obey commands Nikole coma scale total score: 15 Course 2 Vital Signs: Vital signs: Vital Signs Temperature 98.1 F 11/01/23 02:15 Pulse Rate 63 11/01/23 04:03 Respiratory Rate 21 H 11/01/23 04:03 Blood Pressure 165/81 11/01/23 04:03 Pulse Oximetry 98 11/01/23 04:03 Oxygen Delivery Me thod Room Air 11/01/23 04:03 MDM - Altered Mental Status Medical Decision Making Vitals are stable here. Her white blood cell count is 25. CBC is otherwise not remarkable. Potassium is 3.1, creatinine is elevated at 1.1. Ethanol level is nondetectable. Her first troponin is 50. EKG shows a sinus rhythm with normal axis, normal intervals, rate of 65, and no acute ST wave changes. CT of the abdomen is pending. Chest x-ray is negative. Abdominal CT shows nonspecific colitis. She is given Cipro and Flagyl for this. She is hypertensive, and nontachycardic. Potassium is repleted orally. Urine drug screen is only positive for marijuana and benzodiazepines, giving less credibility to potential opioid overdose as a cause of her syncopal episode/period of nonresponsiveness. However, her delta troponin is 59 opening the possibility of arrhythmia versus non-STEMI. She is fecal occult blood positive in her stool. Because of this, we will not anticoagulate her as yet. Spoke with the hospitalist. He will come and see the patient. She will be admitted for colitis, potential non-STEMI, hypokalemia, syncopal episode. Lactic acid has been ordered and is pending. Stool sample was collected and is pending as well. Lab Data 11/01/23 02:38 11/01/23 02:38 Radiology Impressions Chest X-Ray 11/01/23 02:28 IMPRESSION: Negative for acute chest pathology. Abdomen/Pelvis CT 11/01/23 03:25 IMPRESSION: 1. Nonspecific colitis pattern. 2. No visible active gastrointestinal bleeding. Laboratory Results WBC 24.91 10^3/uL (3.29-11.43) H 11/01/23 02:38 RBC 4.84 10^6/uL (3.85-5.65) 11/01/23 02:38 Hgb 15.70 g/dL (11.27-16.99) 11/01/23 02:38 Hct 46.8 % (36-47) 11/01/23 02:38 MCV 96.7 fl (85-98) 11/01/23 02:38 MCH 32.4 pg (27-33) 11/01/23 02:38 MCHC 33.5 g/dL (30-55) 11/01/23 02:38 RDW 12.8 % (12.1-15.1) 11/01/23 02:38 Plt Count 300 10^3/cmm (157-399) 11/01/23 02:38 MPV 9.4 fL (7.4-10.4) 11/01/23 02:38 Neut % (Auto) 88.5 % 11/01/23 02:38 Lymph % (Auto) 5.0 % 11/01/23 02:38 [place] % (Auto) 4.9 % 11/01/23 02:38 Eos % (Auto) 0.3 % 11/01/23 02:38 Baso % (Auto) 0.3 % 11/01/23 02:38 Neut # (Auto) 22.08 10^3/uL (1.8-7.7) H 11/01/23 02:38 Lymph # (Auto) 1.2 10^3/uL (0.8-4.8) 11/01/23 02:38 [place] # (Auto) 1.2 10^3/uL (0.2-0.9) H 11/01/23 02:38 Eos # (Auto) 0.1 10^3/uL (0.0-0.8) 11/01/23 02:38 Baso # (Auto) 0.1 10^3/uL (0.0-0.1) 11/01/23 02:38 Nucleated RBC % (auto) 0 % 11/01/23 02:38 Nucleated RBCs # 0.0 /100WBC 11/01/23 02:38 Sodium 144 mmol/L (136-145) 11/01/23 02:38 Potassium 3.1 mmol/L (3.5-5.1) L 11/01/23 02:38 Chloride 104 mmol/L (98-107) 11/01/23 02:38 Carbon Dioxide 26 mmol/L (22-29) 11/01/23 02:38 Anion Gap 17.1 (5-19) 11/01/23 02:38 BUN 16 mg/dL (6-20) 11/01/23 02:38 Creatinine 1.1 mg/dL (0.5-0.9) H 11/01/23 02:38 GFR Calculation 52.8 mL/min (90-130) L 11/01/23 02:38 Glucose 126 mg/dL (65-115) H 11/01/23 02:38 POC Glucose 191 mg/dL (70-110) H 11/01/23 02:27 Calculated Osmolality 301 mOsm/kg (285-295) H 11/01/23 02:38 Calcium 9.4 mg/dL (8.5-10.5) 11/01/23 02:38 Magnesium 1.7 mg/dL (1.7-2.3) 11/01/23 02:38 Total Bilirubin 0.4 mg/dL (0.15-1.2) 11/01/23 02:38 AST 41 U/L (0-32) H 11/01/23 02:38 ALT 34 U/L (0-33) H 11/01/23 02:38 Alkaline Phosphatase 113 U/L (35-105) H 11/01/23 02:38 Troponin T Baseline 50 ng/L (0-10) H 11/01/23 02:38 Troponin T 120 Minute 108.5 ng/L (0-10) H 11/01/23 04:36 Delta Troponin T 58.5 ABS# (0-10) H* 11/01/23 04:36 Total Protein 6.2 g/dL (6.6-8.7) L 11/01/23 02:38 Albumin 3.9 g/dL (3.5-5.2) 11/01/23 02:38 Globulin 2.3 g/dL (1.3-4.6) 11/01/23 02:38 HCG, Qual Negative (Negative) 11/01/23 02:38 Urine Color Yellow (Yellow) 11/01/23 04:39 Urine Appearance Clear (CLEAR) 11/01/23 04:39 Urine pH 7 (5-7) 11/01/23 04:39 Ur Specific [place] 1.005 (1.005-1.030) 11/01/23 04:39 Urine Protein Neg (Negative) 11/01/23 04:39 Urine Glucose (UA) Norm (Normal) 11/01/23 04:39 Urine Ketones Negative (Negative) 11/01/23 04:39 Urine Blood Neg (Negative) 11/01/23 04:39 Urine Nitrate Negative (Negative) 11/01/23 04:39 Urine Bilirubin Neg (Negative) 11/01/23 04:39 Urine Urobilinogen Norm mg/dL (Negative) 11/01/23 04:39 Ur Leukocyte Esterase Negative (Negative) 11/01/23 04:39 Salicylates < 0.3 mg/dL (3-10) L 11/01/23 02:38 Urine Opiates Screen Negative ng/mL (Negative) 11/01/23 04:39 Acetaminophen < 5.0 ug/mL (10-30) L 11/01/23 02:38 Ur Barbiturates Screen Negative ng/mL (Negative) 11/01/23 04:39 Ur Phencyclidine Scrn Negative ng/mL (Negative) 11/01/23 04:39 Ur Amphetamines Screen Negative ng/mL (Negative) 11/01/23 04:39 U Benzodiazepines Scrn Positive ng/mL (Negative) H 11/01/23 04:39 Urine Cocaine Screen Negative ng/mL (Negative) 11/01/23 04:39 U Marijuana (THC) Screen Positive ng/mL (Negative) H 11/01/23 04:39 Ethyl Alcohol < 10 mg/dL (0-10) 11/01/23 02:38 All radiology interpretation(s) finalized by discharge Discharge Plan Discharge Patient Disposition: Admitted As Inpatient Clinical Impression: Colitis, Acute hypokalemia, OLIVE (acute kidney injury), Non-ST elevated myocardial infarction (non-STEMI) Condition: Fair Prescriptions: No Action spironolactone 25 mg tablet 25 mg PO DAILY docusate sodium 50 mg/5 mL liquid 50 mg PO DAILY nitroglycerin 0.4 mg tablet, sublingual 0.4 mg sublingual Q5M PRN (Reason: chest pain) Rx Instructions: do not exceed 3 doses per episode tizanidine 4 mg capsule 4 mg PO TID alprazolam 2 mg tablet 2 mg PO TID oxycodone 10 mg tablet 10 mg PO TID PRN (Reason: pain) (DME) HINGED KNEE BRACE See Rx Instructions .Route .MEDSUPPLY Qty: 2 0RF Rx Instructions: As directed. quetiapine [Seroquel] 400 mg tablet 400 mg PO DAILY fluconazole [Diflucan] 150 mg tablet 150 mg PO DAILY Qty: 1 0RF Rx Instructions: Take 1 tab now. nitrofurantoin monohyd/m-cryst [Macrobid] 100 mg capsule 100 mg PO BID Qty: 10 0RF Rx Instructions: take 1 tab po BID for 5 days. must administer with a meal/food Medical Marijuana potassium chloride 20 mEq tablet extended release 20 meq PO BID Patient Comments: on hold Referrals: Edward Britton MD [Primary Care Provider] - Patient Instructions: Altered Mental Status (ED), Opioid Safety, Pain Management Coding Level of Care Code ED Resin Painter for Lila Hayden
[2023-11-01] MEDS: iohexol 350 mg/mL 500 mL Btl (per mL) IV (03:56)
[2023-11-01 04:43] LABS: Add Urine Microscopic? NO; Charge for UA Resulting for Rev
[2023-11-01 04:51] LABS: Bilirubin Urine Neg (Negative); Blood Urine Neg (Negative); Glucose Urine UA Norm (Normal); Ketones Urine Negative (Negative); Leukocyte Esterase Urine Negative (Negative); Nitrate Urine Negative (Negative); Protein Urine Neg (Negative); Specific Gravity, Urine 1.005 (1.005-1.030); Urine Appearance Clear (CLEAR); Urine Color Yellow (Yellow); Urobilinogen Urine Norm (Negative); pH Urine 7 (5-7)
[2023-11-01 05:07] LABS: Troponin 5 2HR 108.5 ng/L (0-10)
[2023-11-01 05:08] LABS: Troponin 5 2HR Delta 58.5 ABS# (0-10)
[2023-11-01 05:17] LABS: Amphetamines Screen Urine Negative (Negative); Barbiturates Screen Urine Negative (Negative); Benzodiazepines Screen Urine Positive (Negative); Cocaine Screen Urine Negative (Negative); Opiate Screen Urine Negative (Negative); PCP Screen Urine Negative (Negative); THC Screen Urine Positive (Negative)
[2023-11-01] MEDS: metroNIDAZOLE 500 MG Tablet PO (05:36)
[2023-11-01] MEDS: potassium chloride oral liq 20 mEq/15 mL UDC 40 MEQ PO (05:36)
[2023-11-01] MEDS: ciprofloxacin 500 mg Tablet PO (05:36)
[2023-11-01 05:45] LABS: Lactic Sepsis W/Reflex 3.9 mmol/L (0.5-2.2)
--- NOTE | 2023-11-01 06:20 | PC.NURSE ---
Pt arrived to 261 w/transportation analyst on [facility]. Pt immediately had to go to the bathroom to have a BM. Pt is still currently on the toilet, and vomiting. Cool rag given.
--- NOTE | 2023-11-01 06:35 | P.HP_ITS ---
Providers/Chief Complaint 2 Admitting Physician: Gill Christopher MD Primary Care Provider: Edward Britton MD Chief Complaint: AMS History of Present Illness Roselia Chester is a 48 year old female who presented to the hospital after 1 syncopal event. Patient is stating that she has been struggling with syncopal events while having a bowel movement for quite some time. Her symptoms started few hours before her arrival in the ER with abdominal pain and cramps she did not experience any vomiting but she was nauseous, she was changed abdominal cramps mostly hypogastric region in a bandlike pattern, her son found her unconscious in the bathroom while she was having a bowel movement, she was given Narcan which improved her mentation but she was very worn out and drowsy. Patient is stating that she has been experiencing chest pain for last couple days as well especially on right side below her right clavicle. In the ER she was diagnosed with non-STEMI, sepsis, ischemic colitis. C. difficile panel requested Patient has history of anaphylactic reaction to ketorolac she was given loading dose of Plavix and therapeutic dose of Lovenox She is complaining abdominal cramps and pain and wanting to use a bedside commode Review of Systems 2 Const: Reports: chills Eyes: Denies: change in vision ENMT: Denies: throat pain Card: Reports: chest pain Resp: Reports: dyspnea GI: Reports: abdominal pain, nausea and diarrhea : Denies: flank pain Musc: Denies: neck pain Skin/Breast: Denies: rash Neuro: Denies: headache(s) Psych: Reports: anxiety Medications/Allergies Home Medications Medication Instructions Recorded Confirmed Last Taken Type HINGED KNEE BRACE #2 ea 07/10/21 01/13/23 Unknown Rx alprazolam 2 mg tablet 2 mg PO TID 07/10/21 01/13/23 10/16/21 History oxycodone 10 mg tablet 10 mg PO TID PRN pain 07/10/21 01/13/23 10/16/21 History tizanidine 4 mg capsule 4 mg PO TID 07/10/21 01/13/23 10/16/21 History docusate sodium 50 mg/5 mL oral 50 mg PO DAILY 07/29/21 01/13/23 10/15/21 History liquid spironolactone 25 mg tablet 25 mg PO DAILY 07/29/21 01/13/23 10/15/21 History Medical Marijuana 10/14/21 01/13/23 Unknown History nitroglycerin 0.4 mg sublingual 0.4 mg sublingual Q5M PRN chest 10/14/21 01/13/23 10/15/21 History tablet pain potassium chloride 20 mEq 20 meq PO BID 10/29/21 01/13/23 Unknown History tablet,extended release quetiapine 400 mg tablet (Seroquel) 400 mg PO DAILY 10/29/21 01/13/23 Unknown History fluconazole 150 mg tablet 150 mg PO DAILY #1 tab 01/13/23 01/13/23 Unknown Rx (Diflucan) nitrofurantoin 100 mg PO BID urge incontinence 01/13/23 01/13/23 Unknown Rx monohydrate/macrocrystals 100 mg #10 caps capsule (Macrobid) Allergies Allergy/AdvReac Type Severity Reaction Status Date / Time Latex, Natural Rubber Allergy Intermediate urticaria Verified 01/13/23 15:25 acetaminophen Allergy vomitting Verified 01/13/23 15:25 ketorolac [From Toradol] Allergy ALGY-Anaphy Verified 01/13/23 15:25 laxis morphine Allergy mood Verified 01/13/23 15:25 alteration PFSH Acute 2 PFSH: Medical History No significant past medical history Aftercare following surgery of the genitourinary system Wagakjp-Uvfdu-Gyqbj disease Congestive heart failure Surgical History No significant past surgical history History of spinal surgery Neck surgery (2005) History of bladder repair surgery 2 bladder sling surgeries. History of hysterectomy 1998 History of delivery 1998 History of vaginal surgery History of left breast biopsy Breast cancer of left breast removed in 2005. Family History Sister Anesthesia complication Mother Cancer Lung cancer and back cancer Lung disease Diabetes Father Diabetes Other Hypertension Psychiatric illness Denies family history of CAD (coronary artery disease) Clotting disorder Dementia Hyperlipidemia Chronic kidney disease (CKD) Suicide Bleeding disorder Family history of premature coronary artery disease Stroke Social History Substance/Drug Use: never Vitals/I&O/Wt Last Vital Signs Temp 98.1 F 11/01/23 02:15 Pulse 63 11/01/23 04:03 Resp 21 H 11/01/23 04:03 BP 165/81 11/01/23 04:03 Pulse Ox 98 11/01/23 04:03 O2 Del Method Room Air 11/01/23 04:03 10/31/23 10/31/23 11/01/23 14:59 22:59 06:59 Intake Total 1000 / 1000 Balance 1000 / 1000 Weight last 48 hrs Weight 77.111 kg Physical Exam 2 Narrative: Patient clinically looks dehydrated Multiple skin tattoos Abdomen soft Mild tenderness noted in hypogastric region I do not appreciate abdominal guarding, rigidity or severe signs of peritonitis Awake but drowsy and lethargic Complaining of pain and want to use bedside commode S1, S2 tachycardia Currently on room air Hemodynamically stable Nonfocal neuroexam Data 11/01/23 02:38 11/01/23 02:38 A&P Assessment and plan (1) Non-ST elevated myocardial infarction (non-STEMI): (2) Colitis: (3) OLIVE (acute kidney injury): (4) Acute hypokalemia: (5) Hypomagnesemia: (6) Sepsis: (7) Ischemic colitis: (8) Altered mental status: Plan Non-STEMI No active chest pain Delta troponin noted EKG without infarctive changes Requested echo Start therapeutic Lovenox along Plavix Patient seems to have an anaphylactic reaction to NSAIDs holding off on aspirin for now Ischemic colitis Concern related to sepsis, patient is showing SIRS criteria with leukocytosis tachypnea and tachycardia with high lactic acid and hydropic damage We will give her septic bolus Request blood cultures Lactic acid is high Patient received ciprofloxacin and Flagyl, keep her on Zosyn for now Watershed area colitis Likely related to diarrhea CT abdomen pelvis with contrast reviewed H&H is stable In case of any worsening patient may need general surgery consultation Rule out A-fib Currently on therapeutic Lovenox along fluid hydration N.p.o. diarrhea Rule out C. difficile I do believe this is related to ischemic colitis Opiate dependent related to back pain, judicious use of opioids Patient required Narcan Altered mental status likely related to vasovagal syncope Drug screen not positive for opioids, marijuana positive OLIVE related to dehydration Avoid nephrotoxic agents Continue fluid hydration Hold spironolactone Admit to ICU Will need closer monitoring Full code N.p.o. Hypomagnesemia: Repleted Hypokalemia: I will add D5 normal saline with potassium supplements Attestations 2 Medical Necessity Statement*: More than 2 midnights anticipated for sepsis, ischemic colitis, non-STEMI Diagnoses Non-ST elevated myocardial infarction (non-STEMI) I21.4 Colitis K52.9 OLIVE (acute kidney injury) N17.9 Acute hypokalemia E87.6 Hypomagnesemia E83.42 Sepsis A41.9 Ischemic colitis K55.9 Altered mental status R41.82
--- NOTE | 2023-11-01 06:36 | USCV_ITS ---
Roselia Chester Age: 48 Gender: F : 1975 Exam Date: 11/01/2023 15:42 Ordering Phys: Gill Christopher MD Technologist: Arya Andrade Exam Location: [facility] [place] Indication: nstemi BP: 158 / 92 HR: 62 Rhythm: Sinus Technical Quality: Adequate MEASUREMENTS (Male / Female) Normal Values 2D ECHO LVOT Diameter 2.1 cm LV Ejection Fraction MOD 2C 70.7 % LV Ejection Fraction 2C AL 71.7 % LA Diameter 3.2 cm LA Width 4.0 cm LA Height 4.0 cm RA Width 3.5 cm RA Height 4.0 cm Aorta at Sinotubular Diameter 2.8 cm IVC Diameter 1.7 cm M-MODE Aortic Annulus Diameter 2.8 cm LA Ao Ratio MM 1.2 MV E Point Septal Separation 0.7 cm DOPPLER AV Peak Velocity 158.7 cm/s LVOT Peak Velocity 111.0 cm/s AV Area Cont Eq vti 2.3 cm squared AV Area Cont Eq pk 2.5 cm squared MV Peak Velocity 126.0 cm/s MV Area PHT 5.0 cm squared Mitral E to A Ratio 0.8 MV E' Velocity 40.5 cm/s Mitral E to MV E' Ratio 6.7 Mitral E to LV E' Lateral Ratio 5.8 Mitral E to LV E' Septal Ratio 7.8 Right Atrial Pressure 3.0 mmHg PV Peak Velocity 123.0 cm/s RV Acceleration Time 0.1 s RV Ejection Time 0.3 s RV AcT/ET 0.5 FINDINGS Left Ventricle Left ventricle is normal in size. LV systolic function is normal with EF 55 to 60%. No regional wall motion abnormalities are seen. Right Ventricle Normal in size and function Right Atrium Normal in size Left Atrium Normal in size Mitral Valve Structurally normal mitral valve. Trace mitral regurgitation Aortic Valve Structurally normal aortic valve. No significant stenosis or regurgitation seen. Tricuspid Valve Insufficient TR jet to calculate RVSP Pulmonic Valve Not well-visualized Pericardium Normal Aorta Normal in size IVC Appears to be normal CONCLUSIONS LV systolic function is normal with EF of 55 to 60%. Trace mitral regurgitation. Trace tricuspid regurgitation. No comparison studies are available. Michael Magaña MD (Electronically Signed) Final Date: 01 November 2023 16:18 S
[2023-11-01] MEDS: ondansetron 2 mg/ML SDV 2 mL 4 MG IVP ×2 (06:56→10:12)
[2023-11-01] MEDS: lactated ringers 1,000 ML 999 ML IV ×2 (07:03→08:21)
[2023-11-01] MEDS: enoxaparin 40 mg/0.4 mL Syringe 80 MG SUBCUT ×2 (07:04→17:46)
[2023-11-01] MEDS: magnesium sulfate premix 1 GM/100 ML PIGGYBACK IV (07:04)
[2023-11-01] MEDS: clopidogrel 300 mg Tablet PO (07:04)
[2023-11-01 07:20] LABS: Reflex Lactate Order REFLEX LACTIC ORDERD
[2023-11-01 07:39] LABS: D Dimer 9.31 ug/mLFEU (0-0.59)
[2023-11-01 07:44] LABS: Estmated Average Glucose 88; Hemoglobin A1C 4.7 % (4.0-6.0)
[2023-11-01 07:46] LABS: Lactate (Lactic Acid level) 1.2 mmol/L (0.5-2.2)
[2023-11-01 07:53] LABS: NT Pro B Type Natriuretic Pept 445 pg/mL (0-125); Procalcitonin 1.97 ng/mL (0-0.5)
--- NOTE | 2023-11-01 08:29 | ECG_ITS ---
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 Measurements Intervals [place] Rate: 60 P: 61 WA: 189 QRS: 11 QRSD: 98 T: 5 QT: 455 QTc: 456 Interpretive Statements SINUS RHYTHM Compared to ECG 11/01/2023 02:24:53 No significant changes Electronically Signed On 11-01-2023 10:00:19 GARNETT MACHINE OPERATOR by Michael Magaña M.D. [id number]
--- NOTE | 2023-11-01 08:44 | PC.NURSE ---
Patient safely transferred to ICU8 via bed by Nhi Gupta RN and Tamara Ann RN.
--- NOTE | 2023-11-01 09:00 | PC.PHAR ---
PT UNABLE TO VERIFY HOME MEDS-MEDICATIONS VERIFIED USING EXTERNAL MED LIST LAST FILLED
[2023-11-01] MEDS: dextrose 5%-ns + KCl 40 40 MEQ/1,000 ML BAG 100 MEQ IV (09:13)
[2023-11-01 09:37] LABS: Troponin 5 6HR 77.17 ng/L (0-10)
[2023-11-01 09:41] LABS: Troponin 5 6HR Delta 27.17 ng/L (0-12)
[2023-11-01] MEDS: hyDRALAzine 20 mg/mL INJ 1 mL 5 MG IVP ×2 (09:47→09:53)
[2023-11-01] MEDS: pantoprazole 40 mg SDV IVP ×2 (10:12→17:45)
[2023-11-01] MEDS: magnesium sulfate premix 2 GM/50 ML PIGGYBACK IV (10:13)
[2023-11-01] MEDS: atorvastatin 40 mg Tablet 80 MG PO (10:19)
[2023-11-01] MEDS: ALPRAZolam 0.5 mg Tablet 1 MG PO ×2 (10:19→17:46)
[2023-11-01] MEDS: quetiapine 100 mg Tablet 200 MG PO (10:54)
[2023-11-01] MEDS: piperacillin-tazobactam 3.375 GM in sodium chloride 0.9% (plus) 50 ML IV ×2 (10:54→17:46)
[2023-11-01 11:08] LABS: Vitamin B12 753 pg/mL (232-1245)
--- NOTE | 2023-11-01 11:39 | PC.NURSE ---
received in transfer from 2nd floor, noted anxious restless and hyper attempting to check blood pressure pt reacts with pulling off cuff and throwing in in floor yelling i cant stand all these wires get them off.. noted elevated blood pressure .. stated large amts of cramping abdomen up to bsc small amt bright red blood noted from hemorrhoid voiding rob urine .. cautioned against straining . attempt to do echo pt stated i cant turn on my side tech left will come back later ... doctor called medicine given nausea ect
[2023-11-01 12:19] LABS: Adenovirus Not Detected (NOT DETECT); Chlamydia Pneumoniae Not Detected (NOT DETECT); Coronavirus 229E,HKU1,NL63,OC4 Not Detected (NOT DETECT); Human Metapneumovirus Not Detected (NOT DETECT); Human Rhinovirus/Enterovirus Not Detected (NOT DETECT); Influenza A Not Detected (NOT DETECT); Influenza A H1 Not Detected (NOT DETECT); Influenza A H1-2009 Not Detected (NOT DETECT); Influenza A H3 Not Detected (NOT DETECT); Influenza B Not Detected (NOT DETECT); Mycoplasma Pneumoniae Not Detected (NOT DETECT); Parainfluenza Virus Type 1 Not Detected (NOT DETECT); Parainfluenza Virus Type 2 Not Detected (NOT DETECT); Parainfluenza Virus Type 3 Not Detected (NOT DETECT); Parainfluenza Virus Type 4 Not Detected (NOT DETECT); Respiratory Syncytial Virus A Not Detected (NOT DETECT); Respiratory Syncytial Virus B Not Detected (NOT DETECT); SARS-COV-2 Not Detected (NOT DETECT)
--- NOTE | 2023-11-01 18:25 | PC.NURSE ---
has rested today felt better visitors in noted increase in anxiety and blood pressure.. tearful up to bsc again frequent no Bm or stool noted all day has had rob urine and small amt redish blood tinge frequent straining again to have bm . nerve medication given
--- NOTE | 2023-11-01 19:03 | P.PN_ITS ---
Subjective 2 Subjective: Her low back pain is bothering her. Abdominal discomfort. So far no diarrhea. Reports recurrent blood in the stool prior to presentation. Minimal spotting so far today reported. Vitals/I&O/Wt Last Vital Signs Temp 98 F 11/01/23 14:30 Pulse 61 11/01/23 18:15 Resp 21 H 11/01/23 18:15 BP 173/107 11/01/23 18:15 Pulse Ox 97 11/01/23 18:15 O2 Del Method Room Air 11/01/23 07:57 11/01/23 11/01/23 11/01/23 06:59 14:59 22:59 Intake Total 1000 / 1000 2450 / 2450 250 / 2700 Output Total 750 / 750 450 / 1200 Balance 1000 / 1000 1700 / 1700 -200 / 1500 Weight last 48 hrs Weight 77.111 kg Weight 77.111 kg Physical Exam 2 Narrative: Accompanied by her daughter and niece. Const: COMMON NORMALS: patient oriented x3 and alert GENERAL APPEARANCE: c ooperative ORIENTATION/CONSCIOUSNESS: Yes awake HENMT: COMMON NORMALS: oropharynx normal Neck/C-Spine: COMMON NORMALS: no JVD Resp: COMMON NORMALS: normal respiratory effort and clear to auscultation bilaterally AUSCULTATION: clear to auscultation bilaterally Cardio: COMMON NORMALS: no JVD, regular rhythm, S1 normal heart sound present, S2 normal heart sound present and No murmurs present (Cardio) RHYTHM: regular rhythm HEART SOUNDS: S1 normal heart sound present and S2 normal heart sound present GI: COMMON NORMALS: Soft to palpation PALPATION: Yes Soft to palpation O THER: Mildly tender to palpation, more so on the left side. Back/Pelvis: OTHER: No erythema, swelling or tenderness at site of rhizotomy access. Extremity: COMMON NORMALS: no joint enlargement and no pedal edema Neuro: COMMON NORMALS: patient oriented x3 and moves all extremities S ENSORIUM/ORIENTATION: Yes alert Skin: COMMON NORMALS: no rashes or lesions noted GENERAL SKIN EXAM: no rashes or lesions noted OTHER: Minute erythema around umbilical piercing. Data 11/01/23 02:38 11/01/23 02:38 A&P Assessment and plan (1) Non-ST elevated myocardial infarction (non-STEMI): (2) Colitis: (3) OLIVE (acute kidney injury): (4) Acute hypokalemia: (5) Hypomagnesemia: (6) Sepsis: (7) Ischemic colitis: (8) Altered mental status: Plan Non-STEMI: Troponin with moderate elevation, 108 at 2 hours, then down to 77 at 6 hours. Sinus rhythm without ischemic changes on EKG. At the same time uncontrolled hypertension may be contributing to troponin elevation. Given IV hydralazine for blood pressure. Reviewed echocardiogram, normal ejection fraction, trace MVR, trace TVR. No regional wall motion abnormalities. Continue Plavix, LovenoxAspirin has been withheld due to anaphylaxis with NSAIDs in the past. Bradycardic, so no beta-south. Continue statin. Monitor for GI bleeding. Would benefit from further risk stratification depending on condition. Additionally D-dimer elevated 9.31. With malaise, nonspecific colitis, obtained COVID-19 PCR panel. Currently on anticoagulation as above for NSTEMI. Saturating well on room air. No tachycardia. No unilateral lower extremity edema. Suspect related to colitis. Is currently covered with anticoagulation will repeat D- dimer, reassess symptoms. If persistently elevated consider additional assessment for PE. This evening patient and family requesting for transfer for further assessment by gastroenterology, discussed with night physician family request for transfer. Uncontrolled hypertension: Blood pressure up into 200 systolic this morning. Given hydralazine IV. She is also anxious, also endorsing back pain after recent rhizotomy. Given IV hydralazine with improvement in blood pressure, discussed with her want to avoid overly rapid drop in blood pressure. Further with treatment of pain, anxiety blood pressure with further improvement. Continue to monitor and gradually optimize, avoid rapid decrease. Down to 158/91, but with fluctuation, again rise this evening, add amlodipine. Colitis: Of unclear etiology, Stool studies have been requested, not sent out as she has not had a bowel movement. Reports having some blood with defecation. Concern related to sepsis, patient is showing SIRS criteria with leukocytosis tachypnea and tachycardia with high lactic acid and hydropic damage. She reports some recurrence of hematochezia in the past.For now continue with Zosyn. Collect stool studies. Consideration may be also given to IBD. Patient and family further requesting transfer for assessment by gastroenterology, discussed with night physician family request for transfer. Watershed area colitis thought related to diarrhea Reviewed and discussed with her and family CT abdomen pelvis with contrast H&H is stable She reported feeling better, requested trial of clear liquids. Started. Back pain: Recently after rhizotomy several days ago. Examined access site, without erythema, swelling, tenderness. Add lidocaine patch. Continue pain control. Has IV Dilaudid ordered if needed for breakthrough severe pain. At home after syncopal episode given Narcan. Currently vitals are closely monitored as was admitted to ICU. Altered mental status likely related to vasovagal syncope Drug screen not positive for opioids, marijuana positive Review medications at discharge due to polypharmacy, multiple medications that may lead to mental status change and respiratory depression. OLIVE related to dehydration: Follow-up chemistry requested. Avoid nephrotoxic agents Continue fluid hydration Hold spironolactone Hypomagnesemia: Replaced. Recheck magnesium. Hypokalemia: D5 normal saline with potassium supplements. Recheck chemistries requested. Umbilical piercing: Family asking whether: Symptoms could be related to umbilical piercing. On exam tiny amount of erythema around recently obtained umbilical piercing, no swelling or discharge. Discussed unlikely. Attestations 2 Medical Necessity Statement*: Continue admission for assessment management of nonspecific colitis, uncontrolled hypertension, NSTEMI. Diagnoses Non-ST elevated myocardial infarction (non-STEMI) I21.4 Colitis K52.9 OLIVE (acute kidney injury) N17.9 Acute hypokalemia E87.6 Hypomagnesemia E83.42 Sepsis A41.9 Ischemic colitis K55.9 Altered mental status R41.82
[2023-11-01] MEDS: amlodipine 5 mg Tablet PO (20:16)
[2023-11-01] MEDS: HYDROmorphone 1 mg/mL INJ 1 mL 0.2 MG IVP (20:31)
--- NOTE | 2023-11-01 20:54 | PC.NURSE ---
Unable to obtain lab specimen for [facility]. Attempts by shipyard laborer, and 2 nurses. Contacted Washing Machine Installer to attempt specimen collection.
[2023-11-01 22:48] LABS: Anion Gap 12.4 (5-19); Blood Urea Nitrogen 6 mg/dL (6-20); Calcium 8.7 mg/dL (8.5-10.5); Carbon Dioxide 25 mmol/L (22-29); Chloride 109 mmol/L (98-107); Glomerular Filtration Rate 131.1 mL/min (90-130); Glucose 94 mg/dL (65-115); Osmolality Calculated 293 mOsm/kg (285-295); Potassium 3.4 mmol/L (3.5-5.1); Sodium 143 mmol/L (136-145)
[2023-11-02] VITALS (18 sets, daily range): BP systolic 128–189; BP diastolic 74–142; PULSE 62–102; RESP 13–30; TEMP 36.5–36.8; O2SAT 89–99
[2023-11-02] MEDS: D5-NS 0.45% + KCL 20 mEq 20 MEQ/1,000 ML BAG 75 MEQ IV ×2 (00:34→14:58)
[2023-11-02] MEDS: piperacillin-tazobactam 3.375 GM in sodium chloride 0.9% (plus) 50 ML IV ×3 (01:24→18:17)
[2023-11-02] MEDS: HYDROmorphone 1 mg/mL INJ 1 mL 0.2 MG IVP (04:00)
[2023-11-02 05:17] LABS: Basophils % 0.1 %; Eosinophils % 0.2 %; Hematocrit 37.6 % (36-47); Lymphocytes % 11.2 %; Mean Corpuscular Hemoglobin 31.9 pg (27-33); Mean Corpuscular Volume 96.7 fl (85-98); Mean Platelet Volume 9.8 fL (7.4-10.4); Monocytes # 1.7 10^3/uL (0.2-0.9); Monocytes % 9.8 %; Neutrophils # 13.65 10^3/uL (1.8-7.7); Neutrophils % 78.2 %; Nucleated Red Blood Cells % 0 %; Platelet Count 221 10^3/cmm (157-399); Red Blood Count 3.89 10^6/uL (3.85-5.65); Red Cell Distribution Width 13.2 % (12.1-15.1); White Blood Count 17.45 10^3/uL (3.29-11.43)
[2023-11-02 05:39] LABS: Anion Gap 11.3 (5-19); Blood Urea Nitrogen 5 mg/dL (6-20); C Reactive Protein 31.3 mg/L (0.0-4.9); Calcium 8.3 mg/dL (8.5-10.5); Carbon Dioxide 23 mmol/L (22-29); Chloride 110 mmol/L (98-107); Glomerular Filtration Rate 88.9 mL/min (90-130); Glucose 131 mg/dL (65-115); Magnesium 1.9 mg/dL (1.7-2.3); Osmolality Calculated 291 mOsm/kg (285-295); Potassium 3.3 mmol/L (3.5-5.1); Sodium 141 mmol/L (136-145)
[2023-11-02 05:43] LABS: D Dimer 1.92 ug/mLFEU (0-0.59)
[2023-11-02] MEDS: ALPRAZolam 0.5 mg Tablet 1 MG PO ×3 (08:12→21:04)
[2023-11-02] MEDS: atorvastatin 40 mg Tablet 80 MG PO (08:12)
[2023-11-02] MEDS: clopidogrel 75 mg Tablet PO (08:12)
[2023-11-02] MEDS: amlodipine 5 mg Tablet PO (08:13)
[2023-11-02] MEDS: pantoprazole 40 mg SDV IVP ×2 (08:13→18:51)
[2023-11-02] MEDS: lidocaine 5% Patch 1 PATCH TOPICAL (09:01)
[2023-11-02] MEDS: hyDRALAzine 25 mg Tablet PO ×3 (12:53→21:04)
[2023-11-02] MEDS: magnesium hydroxide 30 mL UDC PO ×2 (13:59→21:04)
--- NOTE | 2023-11-02 14:29 | PC.NURSE ---
Patient transferred to MS floor ro room 264 via wheelchair accompanied by this nurse. Patient belongings placed at bedside, Noy LO at bedside at time of transfer, Ms. Chester noted to be A&Ox3 at time of transfer.
--- NOTE | 2023-11-02 15:50 | P.PN_ITS ---
Subjective 2 Subjective: No acute events overnight. Hospital course, labs appreciated. Today morning on examination patient laying in bed, seems to be significantly emotional, states having a panic attack as she is not able to get her home medications. Patient crying and sobbing during examination. Denies any pain, nausea or vomiting. States continues to have blood per rectum on bowel movements. has been dealing with constipation for a long time but has never had bleeding before. Vitals/I&O/Wt Last Vital Signs Temp 98.2 F 11/02/23 02:00 Pulse 76 11/02/23 15:43 Resp 16 11/02/23 15:43 BP 176/111 11/02/23 12:00 Pulse Ox 94 11/02/23 15:43 O2 Del Method Room Air 11/02/23 15:43 11/02/23 11/02/23 11/02/23 06:59 14:59 22:59 Intake Total 410 / 4280 1290 / 1290 Output Total 300 / 1800 500 / 500 Balance 110 / 2480 790 / 790 Weight last 48 hrs Weight 77.111 kg Weight 77.111 kg Physical Exam 2 Narrative: General: No acute distress, AO x3, emotional, sobbing HEENT: PERRLA, pupils bilaterally equal and reactive Chest: Normal vesicular breath sounds, no added sounds, equal good air entry bilaterally CVS: S1-S2 regular, no murmurs, no tachycardia, no gallops, no rubs Abdomen: Soft, generalized tenderness more so in lower abdomen, bowel sound increased, no organomegaly Neuro: No focal deficits, no facial deformity, AO x3, power 5/5 in all limbs Psych: COMMON NORMALS: cooperative, speech normal, denies hallucinations, denies homicidal ideation and denies suicidal ideation ATTITUDE: Yes engaged ACTIVITY/MOTOR BEHAVIOR: Yes appropriate eye contact SPEECH: Yes normal speech and Yes excessive MOOD & AFFECT: Yes depressed mood, Yes anxious, Yes sad and Yes tearful Data 11/02/23 05:01 11/02/23 05:01 A&P Assessment and plan (1) Altered mental status: Present on admission. Resolved now. Most likely in setting of polypharmacy. Patient takes alprazolam 2 mg 3 times daily, oxycodone 10 mg 3 times daily, Seroquel 100 mg daily, she has been ordered for 100 mg daily, tizanidine 4 mg 3 times daily. High concerns for withdrawal from medications. Restart Xanax as 1 mg 3 times daily, tizanidine at 2 mg twice daily, oxycodone 5 mg every 6 as needed. Continue with Seroquel at 100 mg daily. Will request psychiatric evaluation for further management. Patient might benefit from inpatient transfer to Neuropsych Unit. Check HIV, urine drug screen on admission appreciated. Patient (2) Colitis: With bright blood per rectum. Nonspecific colitis on CT abdomen pelvis on 11/01. Stool studies awaited. Continue with Zosyn. Advance to mechanical soft diet. Aggressive bowel regimen with milk of magnesia daily, Colace twice daily. Continue with Protonix twice daily, add Carafate ACHS. Gives history of IBS as an outpatient. Patient will benefit from GI evaluation as an outpatient. Will also benefit from colonoscopy once colitis is settled. (3) Bright red blood per rectum: (4) Uncontrolled hypertension: Goal blood pressure less than 140/90 mmHg. Some concerns for withdrawal from psych medications. Increase amlodipine to 10 mg daily. Add hydralazine 25 mg 3 times daily. Continue to monitor. Uptitrate as for goal blood pressures. (5) Anxiety: Treatment as above. Psych evaluation. (6) Non-ST elevated myocardial infarction (non-STEMI): Elevated troponin cycle with delta negative on admission. Cannot rule out demand ischemia from uncontrolled hypertension. Denies any active chest pain. Echocardiogram shows normal EF with trace MR and TR. Patient will benefit from stress studies once stable. Check A1c, lipid panel. Start on aspirin, statin. Stop Plavix for now. (7) OLIVE (acute kidney injury): Resolved. Electrolyte abnormalities resolved. Continues to have mild hypokalemia. Replace with 80 mg of oral potassium. (8) Acute hypokalemia: (9) Hypomagnesemia: (10) Sepsis: (11) Ischemic colitis: (12) Polypharmacy: Plan Watershed area colitis thought related to diarrhea on admission. Concerns low now. Reviewed and discussed with her and family CT abdomen pelvis with contrast H&H is stable Tolerating. Regular diet well. Advance to mechanical soft diet Back pain: Recently after rhizotomy several days ago. Examined access site, without erythema, swelling, tenderness. Add lidocaine patch. Continue pain control. Has IV Dilaudid ordered if needed for breakthrough severe pain. At home after syncopal episode given Narcan. Currently vitals are closely monitored as was admitted to ICU. Full code Mechanical soft diet Protonix for PUD prophylaxis SCDs for DVT prophylaxis given ongoing hematochezia. Transfer to [facility] floor. Attestations 2 Medical Necessity Statement*: Requires further hospitalization for management of uncontrolled hypertension, hematochezia in setting of colitis, anxiety, altered mental status in setting of polypharmacy from multiple antianxiety medications. Diagnoses Altered mental status R41.82 Colitis K52.9 Bright red blood per rectum K62.5 Uncontrolled hypertension I10 Anxiety F41.9 Non-ST elevated myocardial infarction (non-STEMI) I21.4 OLIVE (acute kidney injury) N17.9 Acute hypokalemia E87.6 Hypomagnesemia E83.42 Sepsis A41.9 Ischemic colitis K55.9 Polypharmacy Z79.899
[2023-11-02] MEDS: oxyCODONE-APAP 5-325 mg Tablet 1 TAB PO (16:09)
--- NOTE | 2023-11-02 16:15 | PC.NURSE ---
This nurse administered percocet for the patient complaining of abdominal pain. After administration, this nurse noticed patient had an allergy to acetaminophen. Dr. Yap notified immediately. He stated to just monitor the patient.
[2023-11-02] MEDS: potassium chloride ER 20 mEq Tablet 80 MEQ PO (17:45)
[2023-11-02] MEDS: docusate sodium 100 mg Capsule PO (18:18)
[2023-11-02] MEDS: tizanidine 4 mg Tablet 2 MG PO (18:18)
[2023-11-02] MEDS: enoxaparin 40 mg/0.4 mL Syringe 80 MG SUBCUT (18:20)
[2023-11-02 18:25] LABS: HIV 1 & 2 Antibody Non-Reactive (Non-Reactiv); HIV 1 & 2 Antigen Non-Reactive (Non-Reactiv)
[2023-11-02] MEDS: sucralfate 1 gm/10 mL Oral Liq UDC PO ×2 (18:50→21:04)
[2023-11-02] MEDS: oxyCODONE 5 mg IR Tab/Cap PO (23:42)
[2023-11-03] VITALS (11 sets, daily range): BP systolic 108–180; BP diastolic 64–87; PULSE 63–77; RESP 16–20; TEMP 36.6–36.8; O2SAT 95–97
[2023-11-03] MEDS: D5-NS 0.45% + KCL 20 mEq 20 MEQ/1,000 ML BAG 75 MEQ IV ×2 (03:00→17:53)
[2023-11-03] MEDS: piperacillin-tazobactam 3.375 GM in sodium chloride 0.9% (plus) 50 ML IV ×3 (03:06→17:54)
[2023-11-03] MEDS: HYDROmorphone 1 mg/mL INJ 1 mL 0.2 MG IVP (04:27)
[2023-11-03 06:07] LABS: Basophils % 0.2 %; Eosinophils # 0.1 10^3/uL (0.0-0.8); Eosinophils % 0.4 %; Hematocrit 42.5 % (36-47); Lymphocytes # 2.4 10^3/uL (0.8-4.8); Lymphocytes % 13.1 %; Mean Corpuscular HGB Conc 32.9 g/dL (30-55); Mean Corpuscular Hemoglobin 32.5 pg (27-33); Mean Corpuscular Volume 98.6 fl (85-98); Mean Platelet Volume 9.7 fL (7.4-10.4); Monocytes # 1.5 10^3/uL (0.2-0.9); Monocytes % 8.1 %; Neutrophils # 14.46 10^3/uL (1.8-7.7); Neutrophils % 77.6 %; Nucleated Red Blood Cells % 0 %; Platelet Count 259 10^3/cmm (157-399); Red Blood Count 4.31 10^6/uL (3.85-5.65); White Blood Count 18.63 10^3/uL (3.29-11.43)
[2023-11-03 06:21] LABS: Chol HDL Ratio 2.78 mg/dL (0.0-4.40); Cholesterol 142 mg/dL (0-200); HDL Cholesterol 51 mg/dL (60-100); LDL Cholesterol Calculated 72 mg/dL (50-129); Triglycerides 97 mg/dL (0-150); VLDL Cholestrol Calculation 19 mg/dL (0-30)
[2023-11-03 06:32] LABS: Alanine Aminotransferase 26 U/L (0-33); Alkaline Phosphatase 86 U/L (35-105); Blood Urea Nitrogen 4 mg/dL (6-20); Calcium 9.1 mg/dL (8.5-10.5); Carbon Dioxide 23 mmol/L (22-29); Chloride 106 mmol/L (98-107); Globulin 2.1 g/dL (1.3-4.6); Glomerular Filtration Rate 131.1 mL/min (90-130); Glucose 99 mg/dL (65-115); Osmolality Calculated 287 mOsm/kg (285-295); Sodium 140 mmol/L (136-145); Total Bilirubin 0.8 mg/dL (0.15-1.2); Total Protein 6.1 g/dL (6.6-8.7)
[2023-11-03 06:35] LABS: Anion Gap 15.8 (5-19); Aspartate Amino Transferase 25 U/L (0-32); Potassium 4.8 mmol/L (3.5-5.1)
[2023-11-03] MEDS: oxyCODONE 5 mg IR Tab/Cap PO ×2 (06:48→22:00)
[2023-11-03] MEDS: enoxaparin 40 mg/0.4 mL Syringe 80 MG SUBCUT (06:49)
[2023-11-03] MEDS: sucralfate 1 gm/10 mL Oral Liq UDC PO ×4 (06:49→22:00)
--- NOTE | 2023-11-03 09:00 | PC.CHAP ---
Pastoral Care Encounter/Spiritual Assessment Type of Contact [] Declined knitting machine tender visit [] Patient/Family/Request visit [] Outpatient visit [] Follow-up visit [] Physician referral [] Code/Alert [] Routine visit [] Staff referral [] Actively dying [] Patient sleeping [] Family support [] [] Out of room [] Palliative care [] [] Receiving care in room [] Pre-surgical visit [] Trauma [] Long length of stay [] ICU visit [x] Other:No visit. Contact precautions. Relational/Emotional Strength [] Patient feels connected with others/family/visitors/staff [] Distress [] Loneliness/isolation [] Abandonment Spirituality of Patient [] Person of Patt [] Attends Catholic of their Patt [] Believes in Prayer [] Reads Bible or Gnosticism materials [] There are Spiritual issues to be addressed Billet Recorder Interventions [] Prayer [] Active listening [] Non-anxious presence [] Spiritual/emotional support [] Crisis/trauma care [] Spiritual counseling [] Bereavement support [] Provided bereavement packet [] Provided Bible/devotional materials [] Provided toy/stuffed animal, coloring book to patient or family member [] Provided Communion [] Anointing/[place] [] Salvation [] Completed spiritual assessment [] Other: Impact on Illness or Injury [] Angry [] Fearful [] Anxious [] Often cries [] Exhaustion [] Unable to work [] Unable to attend protestant [] Unable to walk/stand [] Unable to read [] Unable to drive [] Unable to eat/drink [] Unable to sleep [] Unable to be with family [] Patient intubated [] Other: Summary Time spent with patient
[2023-11-03] MEDS: pantoprazole 40 mg SDV IVP ×2 (10:17→17:55)
[2023-11-03] MEDS: atorvastatin 40 mg Tablet 80 MG PO (10:18)
[2023-11-03] MEDS: docusate sodium 100 mg Capsule PO ×2 (10:18→17:55)
[2023-11-03] MEDS: tizanidine 4 mg Tablet 2 MG PO ×2 (10:18→17:54)
[2023-11-03] MEDS: quetiapine 100 mg Tablet 200 MG PO (10:19)
[2023-11-03] MEDS: amlodipine 5 mg Tablet 10 MG PO (10:19)
[2023-11-03] MEDS: ALPRAZolam 0.5 mg Tablet 1 MG PO ×3 (10:19→21:59)
[2023-11-03] MEDS: hyDRALAzine 25 mg Tablet PO ×3 (10:20→22:00)
--- NOTE | 2023-11-03 10:20 | PC.NURSE ---
patient refuses lidocaine patch. Claims it was making her sick. Patient too patch off herself
--- NOTE | 2023-11-03 11:16 | W.PM.NPUH&PS ---
Providers/Chief Complaint Admitting Physician: Gill Christopher MD Primary Care Provider: Edward Britton MD Chief Complaint: AMS HPI NPU History of Present Illness Roselia Chester is a 48 year old female who presented to the emergency department with the following report: Chief Complaint: Altered Mental Status Stated Complaint: AMS Time Seen by Provider: 11/01/23 02:18 History of Present Illness: 48-year-old female with chronic pain medication as well as benzodiazepines. She presents with altered mental status, and multiple episodes of diarrhea. Evidently, she had been vomiting and had diarrhea. She was found unresponsive on the toilet by her son. He administered Narcan, which arouse the patient. She continued to have multiple episodes of diarrhea, and on EMS arrival began to panic to some degree according to them. She was given lorazepam intramuscularly which seemed to help to some degree. She presents with abdominal pain and cramping. Her mental status is improved significantly, near baseline. She continues to have significant amounts of diarrhea in the ER. She was admitted to the ICU for definitive treatment of those issues. She was then transferred to [facility] for ongoing care. Some of her medications were held that were psychiatric in nature and a psychiatric consult was requested to explore some of her medications. Patient presents today reporting that she has been on Xanax for the better part of a decade and that the dose was slowly titrated to the 2 mg p.o. 3 times daily that she is taking. We had a fairly lengthy discussion about the use of benzodiazepines with her increasing age. And also the use of them as a primary antianxiety medication. We discussed the risk benefits and alternatives of adding Lexapro 10 mg p.o. daily and possibly changing the Xanax to Klonopin and she understood and agreed to proceed as is documented in this note. We reviewed her psychiatric history and she identified that she has had some outpatient services and is with anxiety and depression for some time. We discussed follow-up care and the need for therapy to augment medication for anxiety. She reports that she has a supportive family and that she will do fine with the adjustment. She denied significant addiction history but we discussed the challenges that can come from prescribed medications. We reviewed her psychosocial history and there were no significant contributory issues outstanding. We agreed that I would discuss this plan with her primary doctor and we will look to consider those changes. [facility] NPU Home Medications Medication Instructions Recorded Confirmed Last Taken Type HINGED KNEE BRACE #2 ea 07/10/21 11/01/23 Unknown Rx alprazolam 2 mg tablet 2 mg PO TID 07/10/21 11/01/23 10/16/21 History oxycodone 10 mg tablet 10 mg PO TID PRN pain 07/10/21 11/01/23 10/16/21 History tizanidine 4 mg capsule 4 mg PO TID 07/10/21 11/01/23 10/16/21 History docusate sodium 50 mg/5 mL oral 50 mg PO DAILY 07/29/21 11/01/23 10/15/21 History liquid spironolactone 25 mg tablet 25 mg PO DAILY 07/29/21 11/01/23 10/15/21 History Medical Marijuana See Rx Instructions .Route .COMPLEX 10/14/21 11/01/23 Unknown History nitroglycerin 0.4 mg sublingual 0.4 mg sublingual Q5M PRN chest 10/14/21 11/01/23 10/15/21 History tablet pain quetiapine 400 mg tablet (Seroquel) 400 mg PO DAILY 10/29/21 11/01/23 Unknown History budesonide-formoterol HFA 160 1 puff inhalation DAILY 11/01/23 11/01/23 Unknown History mcg-4.5 mcg/actuation aerosol inhaler (Symbicort) levalbuterol tartrate 45 1 puff inhalation BID 11/01/23 11/01/23 Unknown History mcg/actuation aerosol inhaler Allergies Allergy/AdvReac Type Severity Reaction Status Date / Time Latex, Natural Rubber Allergy Intermediate urticaria Verified 01/13/23 15:25 acetaminophen Allergy vomitting Verified 01/13/23 15:25 ketorolac [From Toradol] Allergy ALGY-Anaphy Verified 01/13/23 15:25 laxis morphine Allergy mood Verified 01/13/23 15:25 alteration PFSH NPU PFSH: Medical History (Updated 11/04/23 @ 15:32 by Esa Valdes MD) No significant past medical history 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 Melendez at [facility] No significant past surgical history History of spinal surgery Neck surgery (2005) History of bladder repair surgery 2 bladder sling surgeries. History of hysterectomy 1998 History of delivery 1998 History of vaginal surgery History of left breast biopsy Breast cancer of left breast removed in 2005. Family History Sister Anesthesia complication Mother Cancer Lung cancer and back cancer Lung disease Diabetes Father Diabetes Other Hypertension Psychiatric illness Denies family history of CAD (coronary artery disease) Clotting disorder Dementia Hyperlipidemia Chronic kidney disease (CKD) Suicide Bleeding disorder Family history of premature coronary artery disease Stroke Social History Substance/Drug Use: never Mental Status Exam MSE Comments: This is an obese white female in hospital gown with limited grooming but appropriate eye contact. No abnormal movements. Cooperative with exam in no acute distress. Speech was normal rate and volume. Mood described as okay affect congruent. Thought process organized. Thought content: Patient denied suicidal or homicidal ideation, there were no delusions reported or noted, she denied any auditory or visual hallucinations. Attention and concentration were intact and memory appeared reliable but none were formally tested. She is alert and oriented x 3. Insight and judgment. Fair impulse control fair. Vitals/I&O/Wt Last Vital Signs Temp 98.0 F 11/03/23 08:00 Pulse 66 11/03/23 08:00 Resp 19 H 11/03/23 08:00 BP 138/87 11/03/23 08:00 Pulse Ox 97 11/03/23 08:00 O2 Del Method Room Air 11/03/23 08:00 11/02/23 11/03/23 11/03/23 22:59 06:59 14:59 Intake Total 550 / 1840 228.0 / 2068.0 249 / 249 Balance 550 / 1340 228.0 / 1568.0 249 / 249 Weight last 48 hrs Weight 99.382 kg Data NPU 11/04/23 05:25 11/04/23 05:25 Micro: Microbiology 11/02/23 16:25 Stool Lactoferrin - Final Stool Occult Blood (FIT) - Final Microbiology 11/02/23 16:25 Stool Stool Lactoferrin - Final 11/02/23 16:25 Stool Occult Blood (FIT) - Final A&P Assessment and plan (1) Generalized anxiety disorder: (2) Polypharmacy: (3) Uncontrolled hypertension: (4) Non-ST elevated myocardial infarction (non-STEMI): (5) Colitis: (6) Ischemic colitis: (7) Bright red blood per rectum: Plan This is a 48-year-old white female with a significant history of depression and anxiety with intermittent outpatient treatment throughout her life who reports significant anxiety and use of benzodiazepines over the last 6 to 10 years without an SSRI in place with no lethality reported an openness to medication changes discussed. 1. Continue current medication. 2. Start Lexapro 10 mg p.o. daily. 3. Recommend switching to Klonopin which would be approximately 1 mg p.o. 3 times daily and dosing equivalency however could consider 1 mg twice a day given that the 2 mg p.o. 3 times daily of Xanax is a high dose. 4. No inpatient psychiatric needs noted. 5. Will follow tomorrow. Attestations NPU Medical Necessity Statement*: N/A. Please see primary team note for medical necessity. Coding Level of Care Code Acute Code for [facility] Diagnoses Generalized anxiety disorder F41.1 Polypharmacy Z79.899 Uncontrolled hypertension I10 Non-ST elevated myocardial infarction (non-STEMI) I21.4 Colitis K52.9 Ischemic colitis K55.9 Bright red blood per rectum K62.5
--- NOTE | 2023-11-03 13:53 | P.PN_ITS ---
Subjective 2 Subjective: No acute events overnight. He did have 1 bloody bowel movement yesterday afternoon. Asked the nursing staff she did have a few brown bowel movements after that. Patient complaining of cramping lower abdominal pain prior to defecation. Denies any other complaints. Seems more jovial today. Nonthrobbing during examination. Blood pressure is better controlled. Has remained hemodynamically stable and afebrile. On room air. Vitals/I&O/Wt Last Vital Signs Temp 98.2 F 11/03/23 11:38 Pulse 73 11/03/23 11:38 Resp 20 H 11/03/23 11:38 BP 111/66 11/03/23 11:38 Pulse Ox 95 11/03/23 11:38 O2 Del Method Room Air 11/03/23 11:38 11/02/23 11/03/23 11/03/23 22:59 06:59 14:59 Intake Total 550 / 1840 228.0 / 2068.0 249 / 249 Balance 550 / 1340 228.0 / 1568.0 249 / 249 Weight last 48 hrs Weight 99.382 kg Physical Exam 2 Narrative: General: No acute distress, AO x3, emotional, sobbing HEENT: PERRLA, pupils bilaterally equal and reactive Chest: Normal vesicular breath sounds, no added sounds, equal good air entry bilaterally CVS: S1-S2 regular, no murmurs, no tachycardia, no gallops, no rubs Abdomen: Soft, generalized tenderness more so in lower abdomen, bowel sound increased, no organomegaly Neuro: No focal deficits, no facial deformity, AO x3, power 5/5 in all limbs Psych: COMMON NORMALS: cooperative, speech normal, denies hallucinations, denies homicidal ideation and denies suicidal ideation ATTITUDE: Yes engaged ACTIVITY/MOTOR BEHAVIOR: Yes appropriate eye contact SPEECH: Yes normal speech and Yes excessive MOOD & AFFECT: Yes depressed mood, Yes anxious, Yes sad and Yes tearful Data 11/03/23 05:40 11/03/23 05:40 Micro: Microbiology 11/02/23 16:25 Stool Lactoferrin - Final Stool Occult Blood (FIT) - Final A&P Assessment and plan (1) Altered mental status: Present on admission. Resolved now. Most likely in setting of polypharmacy. Patient takes alprazolam 2 mg 3 times daily, oxycodone 10 mg 3 times daily, Seroquel 100 mg daily, she has been ordered for 100 mg daily, tizanidine 4 mg 3 times daily. High concerns for withdrawal from medications. Restart Xanax as 1 mg 3 times daily, tizanidine at 2 mg twice daily, oxycodone 5 mg every 6 as needed. Continue with Seroquel at 100 mg daily. Will request psychiatric evaluation for further management. Patient might benefit from inpatient transfer to Neuropsych Unit. Check HIV, urine drug screen on admission appreciated. Patient (2) Colitis: With bright blood per rectum. Nonspecific colitis on CT abdomen pelvis on 11/01. Stool studies awaited. Continue with Zosyn. Advance to mechanical soft diet. Aggressive bowel regimen with milk of magnesia daily, Colace twice daily. Continue with Protonix twice daily, add Carafate ACHS. Gives history of IBS as an outpatient. Patient will benefit from GI evaluation as an outpatient. Will also benefit from colonoscopy once colitis is settled. (3) Bright red blood per rectum: (4) Uncontrolled hypertension: Goal blood pressure less than 140/90 mmHg. Some concerns for withdrawal from psych medications. Increase amlodipine to 10 mg daily. Add hydralazine 25 mg 3 times daily. Continue to monitor. Uptitrate as for goal blood pressures. (5) Anxiety: Treatment as above. Psych evaluation. (6) Non-ST elevated myocardial infarction (non-STEMI): Elevated troponin cycle with delta negative on admission. Cannot rule out demand ischemia from uncontrolled hypertension. Denies any active chest pain. Echocardiogram shows normal EF with trace MR and TR. Patient will benefit from stress studies once stable. Check A1c, lipid panel. Start on aspirin, statin. Stop Plavix for now. (7) OLIVE (acute kidney injury): Resolved. Electrolyte abnormalities resolved. Continues to have mild hypokalemia. Replace with 80 mg of oral potassium. (8) Acute hypokalemia: (9) Hypomagnesemia: (10) Sepsis: (11) Ischemic colitis: (12) Polypharmacy: Plan [place] colitis thought related to diarrhea on admission. Concerns low now. Reviewed and discussed with her and family CT abdomen pelvis with contrast H&H is stable Tolerating. Regular diet well. Advance to mechanical soft diet Back pain: Recently after rhizotomy several days ago. Examined access site, without erythema, swelling, tenderness. Add lidocaine patch. Continue pain control. Has IV Dilaudid ordered if needed for breakthrough severe pain. At home after syncopal episode given Narcan. Currently vitals are closely monitored as was admitted to ICU. Full code Mechanical soft diet Protonix for PUD prophylaxis SCDs for DVT prophylaxis given ongoing hematochezia. Plan for the day: Patient continues to have persistent leukocytosis though hemoglobin has remained stable and hematochezia seems to be resolving. Tolerating soft diet well. Low concerns for ischemic colitis. Not seen on CTA abdomen pelvis. Hemoglobin has remained stable. 14 today. Switch from full dose Lovenox to Lovenox at prophylactic dose. Given persistent leukocytosis for now we will switch from Zosyn to meropenem. Out of bed to chair. Possible anxiety for now continue with Xanax 1 mg 3 times daily, tizanidine 2 mg twice daily, Seroquel at current dose. Awaiting psych evaluation. Patient asking if Xanax can be changed to Klonopin as her outpatient psychiatrist has been trying to switch medication as an outpatient. We discussed medication can be changed after psych evaluation as per the recommendations. Blood pressure is better controlled. Continue with amlodipine 10 mg oral daily, hydralazine 25 mg 3 times daily. If continues to do well can plan to discharge home within next 24 to 48 hours depending on psych evaluation. Attestations 2 Medical Necessity Statement*: Requires further hospitalization for management of severe anxiety on multiple medications leading to polypharmacy and encephalopathy, colitis with hematochezia Diagnoses Altered mental status R41.82 Colitis K52.9 Bright red blood per rectum K62.5 Uncontrolled hypertension I10 Anxiety F41.9 Non-ST elevated myocardial infarction (non-STEMI) I21.4 OLIVE (acute kidney injury) N17.9 Acute hypokalemia E87.6 Hypomagnesemia E83.42 Sepsis A41.9 Ischemic colitis K55.9 Polypharmacy Z79.899
--- NOTE | 2023-11-03 13:54 | PC.SOCIAL ---
IMM Updated Updated pt on IMM. No questions voiced. Provided pt a copy. Initialed, dated, & timed copy in chart.
[2023-11-03] MEDS: meropenem 1,000 MG in sodium chloride 0.9% (plus) 50 ML 100 MG IV ×2 (15:45→22:00)
[2023-11-03] MEDS: magnesium hydroxide 30 mL UDC PO (22:00)
[2023-11-04] VITALS (9 sets, daily range): BP systolic 119–163; BP diastolic 68–87; PULSE 64–82; RESP 16–20; TEMP 36.4–37.1; O2SAT 95–98
[2023-11-04] MEDS: piperacillin-tazobactam 3.375 GM in sodium chloride 0.9% (plus) 50 ML IV ×3 (03:04→17:51)
[2023-11-04] MEDS: oxyCODONE 5 mg IR Tab/Cap PO ×3 (04:16→17:50)
[2023-11-04 06:15] LABS: Basophils # 0.1 10^3/uL (0.0-0.1); Basophils % 0.3 %; Eosinophils # 0.3 10^3/uL (0.0-0.8); Eosinophils % 1.8 %; Hematocrit 42.6 % (36-47); Lymphocytes # 2.3 10^3/uL (0.8-4.8); Lymphocytes % 15.9 %; Mean Corpuscular HGB Conc 32.9 g/dL (30-55); Mean Corpuscular Hemoglobin 31.7 pg (27-33); Mean Corpuscular Volume 96.6 fl (85-98); Monocytes # 1.2 10^3/uL (0.2-0.9); Neutrophils % 73.6 %; Nucleated Red Blood Cells % 0 %; Platelet Count 240 10^3/cmm (157-399); Red Blood Count 4.41 10^6/uL (3.85-5.65); Red Cell Distribution Width 13.1 % (12.1-15.1); White Blood Count 14.42 10^3/uL (3.29-11.43)
[2023-11-04] MEDS: meropenem 1,000 MG in sodium chloride 0.9% (plus) 50 ML 100 MG IV ×2 (06:31→14:31)
[2023-11-04] MEDS: sucralfate 1 gm/10 mL Oral Liq UDC PO ×4 (06:31→20:10)
[2023-11-04] MEDS: D5-NS 0.45% + KCL 20 mEq 20 MEQ/1,000 ML BAG 75 MEQ IV ×2 (06:31→20:11)
[2023-11-04 06:35] LABS: Alanine Aminotransferase 20 U/L (0-33); Albumin Level 3.5 g/dL (3.5-5.2); Alkaline Phosphatase 96 U/L (35-105); Anion Gap 11.2 (5-19); Aspartate Amino Transferase 17 U/L (0-32); Blood Urea Nitrogen 7 mg/dL (6-20); Carbon Dioxide 26 mmol/L (22-29); Chloride 106 mmol/L (98-107); Globulin 2.8 g/dL (1.3-4.6); Glomerular Filtration Rate 106.3 mL/min (90-130); Glucose 102 mg/dL (65-115); Osmolality Calculated 286 mOsm/kg (285-295); Potassium 4.2 mmol/L (3.5-5.1); Sodium 139 mmol/L (136-145); Total Bilirubin 0.9 mg/dL (0.15-1.2); Total Protein 6.3 g/dL (6.6-8.7)
[2023-11-04] MEDS: amlodipine 5 mg Tablet 10 MG PO (08:15)
[2023-11-04] MEDS: atorvastatin 40 mg Tablet 80 MG PO (08:15)
[2023-11-04] MEDS: enoxaparin 40 mg/0.4 mL Syringe SUBCUT (08:16)
[2023-11-04] MEDS: hyDRALAzine 25 mg Tablet PO ×3 (08:16→20:10)
[2023-11-04] MEDS: quetiapine 100 mg Tablet 200 MG PO (08:16)
[2023-11-04] MEDS: pantoprazole 40 mg SDV IVP ×2 (08:16→17:51)
[2023-11-04] MEDS: tizanidine 4 mg Tablet 2 MG PO ×2 (08:16→17:51)
[2023-11-04] MEDS: ALPRAZolam 0.5 mg Tablet 1 MG PO ×2 (08:16→14:31)
[2023-11-04] MEDS: ondansetron 2 mg/ML SDV 2 mL 4 MG IVP (08:19)
[2023-11-04 12:10] LABS: Clostridium Difficile PCR NOT DETECTED (NOT DETECTED)
--- NOTE | 2023-11-04 12:32 | P.PN_ITS ---
Subjective 2 Subjective: No acute vents overnight. Patient states patient's bowel movements not bloody anymore but still having diarrheal bowel movements. Frequency of decreased. States abdominal pain is better but still having mild left-sided abdominal cramps. Denies any nausea vomiting, headache. States her son at home is also having similar symptoms. Discussed in detail about possibility of source from well water and recommended for very water to be checked. Otherwise patient states she is feeling a lot better emotionally and from anxiety point. Vitals/I&O/Wt Last Vital Signs Temp 97.7 F 11/04/23 11:23 Pulse 82 11/04/23 11:23 Resp 19 H 11/04/23 11:23 BP 144/79 11/04/23 11:23 Pulse Ox 96 11/04/23 11:23 O2 Del Method Room Air 11/04/23 11:23 11/03/23 11/04/23 11/04/23 22:59 06:59 14:59 Intake Total 1493 / 2222 991.042 / 3213.042 50 / 50 Balance 1493 / 2222 991.042 / 3213.042 50 / 50 Weight last 48 hrs Weight 100.783 kg Weight 99.382 kg Physical Exam 2 Narrative: General: No acute distress, AO x3, HEENT: PERRLA, pupils bilaterally equal and reactive Chest: Normal vesicular breath sounds, no added sounds, equal good air entry bilaterally CVS: S1-S2 regular, no murmurs, no tachycardia, no gallops, no rubs Abdomen: Soft, mild tenderness in left lower quadrant of abdomen, bowel sound increased, no organomegaly Neuro: No focal deficits, no facial deformity, AO x3, power 5/5 in all limbs Psych: COMMON NORMALS: cooperative, speech normal, denies hallucinations, denies homicidal ideation and denies suicidal ideation ATTITUDE: Yes engaged ACTIVITY/MOTOR BEHAVIOR: Yes appropriate eye contact SPEECH: Yes normal speech and Yes excessive MOOD & AFFECT: Yes depressed mood, Yes anxious, Yes sad and Yes tearful Data 11/04/23 05:25 11/04/23 05:25 Micro: Microbiology 11/01/23 07:05 Blood Culture - Preliminary Blood 11/01/23 07:00 Blood Culture - Preliminary Blood A&P Assessment and plan (1) Altered mental status: Present on admission. Resolved now. Most likely in setting of polypharmacy. Patient takes alprazolam 2 mg 3 times daily, oxycodone 10 mg 3 times daily, Seroquel 100 mg daily, she has been ordered for 100 mg daily, tizanidine 4 mg 3 times daily. High concerns for withdrawal from medications. Restart Xanax as 1 mg 3 times daily, tizanidine at 2 mg twice daily, oxycodone 5 mg every 6 as needed. Continue with Seroquel at 100 mg daily. Will request psychiatric evaluation for further management. Patient might benefit from inpatient transfer to Neuropsych Unit. Check HIV, urine drug screen on admission appreciated. Patient (2) Colitis: With bright blood per rectum. Nonspecific colitis on CT abdomen pelvis on 11/01. Stool studies awaited. Continue with Zosyn. Advance to mechanical soft diet. Aggressive bowel regimen with milk of magnesia daily, Colace twice daily. Continue with Protonix twice daily, add Carafate ACHS. Gives history of IBS as an outpatient. Patient will benefit from GI evaluation as an outpatient. Will also benefit from colonoscopy once colitis is settled. (3) Bright red blood per rectum: (4) Uncontrolled hypertension: Goal blood pressure less than 140/90 mmHg. Some concerns for withdrawal from psych medications. Increase amlodipine to 10 mg daily. Add hydralazine 25 mg 3 times daily. Continue to monitor. Uptitrate as for goal blood pressures. (5) Anxiety: Treatment as above. Psych evaluation. (6) Non-ST elevated myocardial infarction (non-STEMI): Elevated troponin cycle with delta negative on admission. Cannot rule out demand ischemia from uncontrolled hypertension. Denies any active chest pain. Echocardiogram shows normal EF with trace MR and TR. Patient will benefit from stress studies once stable. Check A1c, lipid panel. Start on aspirin, statin. Stop Plavix for now. (7) OLIVE (acute kidney injury): Resolved. Electrolyte abnormalities resolved. Continues to have mild hypokalemia. Replace with 80 mg of oral potassium. (8) Acute hypokalemia: (9) Hypomagnesemia: (10) Sepsis: (11) Ischemic colitis: (12) Polypharmacy: Plan [place] area colitis thought related to diarrhea on admission. Concerns low now. Reviewed and discussed with her and family CT abdomen pelvis with contrast H&H is stable Tolerating. Regular diet well. Advance to mechanical soft diet Back pain: Recently after rhizotomy several days ago. Examined access site, without erythema, swelling, tenderness. Add lidocaine patch. Continue pain control. Has IV Dilaudid ordered if needed for breakthrough severe pain. At home after syncopal episode given Narcan. Currently vitals are closely monitored as was admitted to ICU. Full code Mechanical soft diet Protonix for PUD prophylaxis SCDs for DVT prophylaxis given ongoing hematochezia. Plan for the day: Leukocytosis mildly improving today. Down to 14,000. Continue with meropenem for now. Number of diarrhea bowel movements improving. No more hematochezia. Hemoglobin has remained stable. Stool studies still awaited. Will continue to follow. Continue with heparin at DVT prophylaxis dose. No concerns for ischemic colitis. Seen by psychiatry yesterday. For anxiety: Continue with Xanax 1 mg 3 times daily, tizanidine 2 mg twice daily, Seroquel at current dose. Most likely will plan to discharge on current medication with follow-up with psychiatric team as an outpatient patient asking if Xanax can be changed to Klonopin as her outpatient psychiatrist has been trying to switch medication as an outpatient. Blood pressure is better controlled. Continue with amlodipine 10 mg oral daily, hydralazine 25 mg 3 times daily. If continues to do well can plan to discharge home within next 24 hours depending on psych evaluation. Attestations 2 Medical Necessity Statement*: Requires further hospitalization for management of colitis along with hematochezia and the patient was admitted for altered mental status secondary to polypharmacy from antianxiety medications. Diagnoses Altered mental status R41.82 Colitis K52.9 Bright red blood per rectum K62.5 Uncontrolled hypertension I10 Anxiety F41.9 Non-ST elevated myocardial infarction (non-STEMI) I21.4 OLIVE (acute kidney injury) N17.9 Acute hypokalemia E87.6 Hypomagnesemia E83.42 Sepsis A41.9 Ischemic colitis K55.9 Polypharmacy Z79.899
--- NOTE | 2023-11-04 16:41 | PC.SOCIAL ---
IMM Updated Updated pt on IMM. No questions voiced. Provided pt a copy. Initialed, dated, & timed copy in chart.
[2023-11-04] MEDS: docusate sodium 100 mg Capsule PO (17:49)
[2023-11-04] MEDS: CLONazepam 1 mg Tablet PO (17:50)
[2023-11-04] MEDS: magnesium hydroxide 30 mL UDC PO (20:10)
[2023-11-04] MEDS: lidocaine 5% Patch 1 PATCH TOPICAL (20:10)
[2023-11-04] MEDS: ipratropium-albuterol 3 mL Neb INHALATION (20:41)
[2023-11-05] VITALS (7 sets, daily range): BP systolic 118–166; BP diastolic 65–116; PULSE 60–88; RESP 15–18; TEMP 36.4–36.7; O2SAT 93–98
[2023-11-05] MEDS: meropenem 1,000 MG in sodium chloride 0.9% (plus) 50 ML 100 MG IV ×2 (02:01→06:05)
[2023-11-05] MEDS: piperacillin-tazobactam 3.375 GM in sodium chloride 0.9% (plus) 50 ML IV ×2 (02:01→10:18)
[2023-11-05 05:06] LABS: Basophils % 0.4 %; Eosinophils # 0.4 10^3/uL (0.0-0.8); Eosinophils % 3.4 %; Hematocrit 40.6 % (36-47); Lymphocytes # 2.1 10^3/uL (0.8-4.8); Lymphocytes % 19.8 %; Mean Corpuscular HGB Conc 32.8 g/dL (30-55); Mean Corpuscular Hemoglobin 32.1 pg (27-33); Mean Corpuscular Volume 98.1 fl (85-98); Mean Platelet Volume 9.6 fL (7.4-10.4); Monocytes # 0.9 10^3/uL (0.2-0.9); Monocytes % 8.3 %; Neutrophils # 7.24 10^3/uL (1.8-7.7); Neutrophils % 67.7 %; Nucleated Red Blood Cells % 0 %; Platelet Count 242 10^3/cmm (157-399); Red Blood Count 4.14 10^6/uL (3.85-5.65); Red Cell Distribution Width 13.1 % (12.1-15.1); White Blood Count 10.69 10^3/uL (3.29-11.43)
[2023-11-05] MEDS: oxyCODONE 5 mg IR Tab/Cap PO (05:21)
[2023-11-05 05:27] LABS: Alanine Aminotransferase 20 U/L (0-33); Albumin Level 3.6 g/dL (3.5-5.2); Alkaline Phosphatase 69 U/L (35-105); Anion Gap 13.3 (5-19); Aspartate Amino Transferase 17 U/L (0-32); Blood Urea Nitrogen 8 mg/dL (6-20); Calcium 8.9 mg/dL (8.5-10.5); Carbon Dioxide 28 mmol/L (22-29); Chloride 104 mmol/L (98-107); Globulin 1.9 g/dL (1.3-4.6); Glomerular Filtration Rate 88.9 mL/min (90-130); Glucose 107 mg/dL (65-115); Osmolality Calculated 291 mOsm/kg (285-295); Potassium 4.3 mmol/L (3.5-5.1); Sodium 141 mmol/L (136-145); Total Bilirubin 0.6 mg/dL (0.15-1.2); Total Protein 5.5 g/dL (6.6-8.7)
[2023-11-05] MEDS: sucralfate 1 gm/10 mL Oral Liq UDC PO ×2 (08:51→12:09)
[2023-11-05] MEDS: pantoprazole 40 mg SDV IVP (08:51)
[2023-11-05] MEDS: hyDRALAzine 25 mg Tablet PO (08:52)
[2023-11-05] MEDS: tizanidine 4 mg Tablet 2 MG PO (08:52)
[2023-11-05] MEDS: amlodipine 5 mg Tablet 10 MG PO (08:52)
[2023-11-05] MEDS: CLONazepam 1 mg Tablet PO (08:52)
[2023-11-05] MEDS: atorvastatin 40 mg Tablet 80 MG PO (08:52)
[2023-11-05] MEDS: docusate sodium 100 mg Capsule PO (08:52)
[2023-11-05] MEDS: quetiapine 100 mg Tablet 200 MG PO (08:53)
[2023-11-05] MEDS: HYDROmorphone 1 mg/mL INJ 1 mL 0.2 MG IVP (08:53)
[2023-11-05] MEDS: enoxaparin 40 mg/0.4 mL Syringe SUBCUT (08:54)
[2023-11-05] MEDS: escitalopram 10 mg Tablet PO (09:03)
--- NOTE | 2023-11-05 12:48 | PM.DCS ---
Discharge Providers Date of Admission: 11/01/23 05:45 Date of Discharge: November 05, 2023 Attending Provider at Admission: Gill Christopher MD Attending Provider at Discharge: Waqas Borrero MD Primary Care Provider: Edward Britton MD Diagnoses at Discharge Discharge Diagnosis (1) Generalized anxiety disorder: Status: Acute (2) Polypharmacy: Status: Acute (3) Uncontrolled hypertension: Status: Acute (4) Non-ST elevated myocardial infarction (non-STEMI): Status: Acute (5) Colitis: Status: Acute (6) Ischemic colitis: Status: Acute (7) Bright red blood per rectum: Status: Acute Reason for Visit Reason for Visit: AMS Brief History: History as per HPI: Roselia Chester is a 48 year old female who presented to the hospital after 1 syncopal event. Patient is stating that she has been struggling with syncopal events while having a bowel movement for quite some time. Her symptoms started few hours before her arrival in the ER with abdominal pain and cramps she did not experience any vomiting but she was nauseous, she was changed abdominal cramps mostly hypogastric region in a bandlike pattern, her son found her unconscious in the bathroom while she was having a bowel movement, she was given Narcan which improved her mentation but she was very worn out and drowsy. Patient is stating that she has been experiencing chest pain for last couple days as well especially on right side below her right clavicle. In the ER she was diagnosed with non-STEMI, sepsis, ischemic colitis. C. difficile panel requested Patient has history of anaphylactic reaction to ketorolac she was given loading dose of Plavix and therapeutic dose of Lovenox Hospital Course Hospital Course Patient was admitted to the hospital further evaluation and management of hematochezia with colitis with concerns for ischemic colitis and admission, altered mental status in setting of possible sepsis versus encephalopathy from polypharmacy of multiple anti psych medications. On admission on anxiety and psych medications were discontinued. She was started on broad-spectrum antibiotics, IV fluids and heparin drip. CT abdomen pelvis was done which ruled out ischemic colitis and heparin was discontinued. Patient responded well to the treatment and her colitis and hematochezia gradually resolved. She is currently able to tolerate mechanical soft to regular diet well. Gradually on antibiotics her leukocytosis resolved. Stool for C. difficile is negative though other studies are still pending. Patient's mentation also improved with holding off on anxiety and psych medication but she did have episodes of severe anxiety and uncontrolled hypertension most likely in setting of withdrawal from the medications for which some of her medications were restarted at a lower dose. Patient has been doing well on lower dose of medications. She was also seen by inpatient psychiatrist during hospitalization for which her home dose of Xanax was changed to Klonopin and Lexapro was added. Psych medications were further changed. Changes were discussed in detail with the patient and she was happy with the changes and was agreeable to continue. She has been discharged in medically stable condition on adjusted medication with advised to follow-up with a primary care provider within next 1 week and with her psychiatrist as an outpatient within next 2 weeks. Physical Exam Narrative: General: No acute distress, AO x3, HEENT: PERRLA, pupils bilaterally equal and reactive Chest: Normal vesicular breath sounds, no added sounds, equal good air entry bilaterally CVS: S1-S2 regular, no murmurs, no tachycardia, no gallops, no rubs Abdomen: Soft, mild tenderness in left lower quadrant of abdomen, bowel sound increased, no organomegaly Neuro: No focal deficits, no facial deformity, AO x3, power 5/5 in all limbs Psych: COMMON NORMALS: cooperative, speech normal, denies hallucinations, denies homicidal ideation and denies suicidal ideation ATTITUDE: Yes engaged ACTIVITY/MOTOR BEHAVIOR: Yes appropriate eye contact SPEECH: Yes normal speech and Yes excessive MOOD & AFFECT: Yes anxious, No sad and No tearful Discharge Data Studies Completed and Pending Completed Studies During Hospitalization Category Date Time Status CT abdomen pelvis w con* [id number] Stat Cat Scan 11/01/23 03:25 Completed XR chest 1V portable [id number] Stat Exams 11/01/23 02:28 Completed CV. echo complete* [id number] Routine Ultrasound 11/01/23 06:36 Completed Pending at discharge Category Date Time Status Blood Cultures ([facility]) Routine Lab 11/01/23 07:05 Results Blood Cultures ([facility]) Stat Lab 11/01/23 07:00 Results OVA and Parasites, Conc and PE Routine Lab 11/01/23 05:30 Ordered Salmonella / Shigella / Campy Routine Lab 11/01/23 05:30 Ordered Radiology Impressions Chest X-Ray 11/01/23 02:28 IMPRESSION: Negative for acute chest pathology. Abdomen/Pelvis CT 11/01/23 03:25 IMPRESSION: 1. Nonspecific colitis pattern. 2. No visible active gastrointestinal bleeding. Echocardiogram: CONCLUSIONS LV systolic function is normal with EF of 55 to 60%. Trace mitral regurgitation. Trace tricuspid regurgitation. No comparison studies are available. Michael Magaña MD (Electronically Signed) Final Date: 01 November 2023 Microbiology 11/01/23 07:05 Blood Blood Culture - Preliminary 11/01/23 07:00 Blood Blood Culture - Preliminary 11/02/23 16:25 Stool Stool Lactoferrin - Final 11/02/23 16:25 Stool Occult Blood (FIT) - Final Laboratory Results WBC 10.69 10^3/uL (3.29-11.43) 11/05/23 04:56 RBC 4.14 10^6/uL (3.85-5.65) 11/05/23 04:56 Hgb 13.30 g/dL (11.27-16.99) 11/05/23 04:56 Hct 40.6 % (36-47) 11/05/23 04:56 MCV 98.1 fl (85-98) H 11/05/23 04:56 MCH 32.1 pg (27-33) 11/05/23 04:56 MCHC 32.8 g/dL (30-55) 11/05/23 04:56 RDW 13.1 % (12.1-15.1) 11/05/23 04:56 Plt Count 242 10^3/cmm (157-399) 11/05/23 04:56 MPV 9.6 fL (7.4-10.4) 11/05/23 04:56 Neut % (Auto) 67.7 % 11/05/23 04:56 Lymph % (Auto) 19.8 % 11/05/23 04:56 [place] % (Auto) 8.3 % 11/05/23 04:56 Eos % (Auto) 3.4 % 11/05/23 04:56 Baso % (Auto) 0.4 % 11/05/23 04:56 Neut # (Auto) 7.24 10^3/uL (1.8-7.7) 11/05/23 04:56 Lymph # (Auto) 2.1 10^3/uL (0.8-4.8) 11/05/23 04:56 [place] # (Auto) 0.9 10^3/uL (0.2-0.9) 11/05/23 04:56 Eos # (Auto) 0.4 10^3/uL (0.0-0.8) 11/05/23 04:56 Baso # (Auto) 0.0 10^3/uL (0.0-0.1) 11/05/23 04:56 Nucleated RBC % (auto) 0 % 11/05/23 04:56 Nucleated RBCs # 0.0 /100WBC 11/05/23 04:56 D-Dimer 1.92 ug/mLFEU (0-0.59) H 11/02/23 05:19 Sodium 141 mmol/L (136-145) 11/05/23 04:56 Potassium 4.3 mmol/L (3.5-5.1) 11/05/23 04:56 Chloride 104 mmol/L (98-107) 11/05/23 04:56 Carbon Dioxide 28 mmol/L (22-29) 11/05/23 04:56 Anion Gap 13.3 (5-19) 11/05/23 04:56 BUN 8 mg/dL (6-20) 11/05/23 04:56 Creatinine 0.7 mg/dL (0.5-0.9) 11/05/23 04:56 GFR Calculation 88.9 mL/min (90-130) L 11/05/23 04:56 Glucose 107 mg/dL (65-115) 11/05/23 04:56 POC Glucose 191 mg/dL (70-110) H 11/01/23 02:27 Estimat Average Glucose 88 11/01/23 07:00 Hemoglobin A1c 4.7 % (4.0-6.0) 11/01/23 07:00 Calculated Osmolality 291 mOsm/kg (285-295) 11/05/23 04:56 Lactic Acid 3.9 mmol/L (0.5-2.2) H 11/01/23 02:38 Lactate 1.2 mmol/L (0.5-2.2) 11/01/23 07:00 Calcium 8.9 mg/dL (8.5-10.5) 11/05/23 04:56 Magnesium 1.9 mg/dL (1.7-2.3) 11/02/23 05:01 Total Bilirubin 0.6 mg/dL (0.15-1.2) 11/05/23 04:56 AST 17 U/L (0-32) 11/05/23 04:56 ALT 20 U/L (0-33) 11/05/23 04:56 Alkaline Phosphatase 69 U/L (35-105) 11/05/23 04:56 Troponin T Baseline 50 ng/L (0-10) H 11/01/23 02:38 Troponin T 120 Minute 108.5 ng/L (0-10) H 11/01/23 04:36 Delta Troponin T 58.5 ABS# (0-10) H* 11/01/23 04:36 Troponin T Hi Sens 6Hr 77.17 ng/L (0-10) H 11/01/23 09:13 Troponin T Hi Sens 6Hr Delta 27.17 ng/L (0-12) H* 11/01/23 09:13 C-Reactive Protein 31.3 mg/L (0.0-4.9) H 11/02/23 05:01 NT-Pro-B Natriuret Pep 445 pg/mL (0-125) H 11/01/23 07:00 Total Protein 5.5 g/dL (6.6-8.7) L 11/05/23 04:56 Albumin 3.6 g/dL (3.5-5.2) 11/05/23 04:56 Globulin 1.9 g/dL (1.3-4.6) 11/05/23 04:56 Triglycerides 97 mg/dL (0-150) 11/03/23 05:40 Cholesterol 142 mg/dL (0-200) 11/03/23 05:40 LDL Cholesterol, Calc 72 mg/dL (50-129) 11/03/23 05:40 Total VLDL Cholesterol 19 mg/dL (0-30) 11/03/23 05:40 HDL Cholesterol 51 mg/dL (60-100) L 11/03/23 05:40 Cholesterol/HDL Ratio 2.78 mg/dL (0.0-4.40) 11/03/23 05:40 Vitamin B12 753 pg/mL (232-1245) 11/01/23 07:00 Procalcitonin 1.97 ng/mL (0-0.5) H 11/01/23 07:00 TSH 1.20 uIU/mL (0.27-4.20) 11/01/23 07:00 HCG, Qual Negative (Negative) 11/01/23 02:38 Urine Color Yellow (Yellow) 11/01/23 04:39 Urine Appearance Clear (CLEAR) 11/01/23 04:39 Urine pH 7 (5-7) 11/01/23 04:39 Ur Specific [place] 1.005 (1.005-1.030) 11/01/23 04:39 Urine Protein Neg (Negative) 11/01/23 04:39 Urine Glucose (UA) Norm (Normal) 11/01/23 04:39 Urine Ketones Negative (Negative) 11/01/23 04:39 Urine Blood Neg (Negative) 11/01/23 04:39 Urine Nitrate Negative (Negative) 11/01/23 04:39 Urine Bilirubin Neg (Negative) 11/01/23 04:39 Urine Urobilinogen Norm mg/dL (Negative) 11/01/23 04:39 Ur Leukocyte Esterase Negative (Negative) 11/01/23 04:39 Nasal Influ A H1 2009 PCR Not detected (NOT DETECT) 11/01/23 10:00 Salicylates < 0.3 mg/dL (3-10) L 11/01/23 02:38 Urine Opiates Screen Negative ng/mL (Negative) 11/01/23 04:39 Acetaminophen < 5.0 ug/mL (10-30) L 11/01/23 02:38 Ur Barbiturates Screen Negative ng/mL (Negative) 11/01/23 04:39 Ur Phencyclidine Scrn Negative ng/mL (Negative) 11/01/23 04:39 Ur Amphetamines Screen Negative ng/mL (Negative) 11/01/23 04:39 U Benzodiazepines Scrn Positive ng/mL (Negative) H 11/01/23 04:39 Urine Cocaine Screen Negative ng/mL (Negative) 11/01/23 04:39 U Marijuana (THC) Screen Positive ng/mL (Negative) H 11/01/23 04:39 Ethyl Alcohol < 10 mg/dL (0-10) 11/01/23 02:38 Adenovirus (PCR) Not detected (NOT DETECT) 11/01/23 10:00 C. pneumoniae DNA (PCR) Not detected (NOT DETECT) 11/01/23 10:00 C. difficile Tox (PCR) Not detected (NOT DETECTED) 11/02/23 16:25 Coronavirus 229E (PCR) Not detected (NOT DETECT) 11/01/23 10:00 HIV 1&2 Ab & HIV 1 Ag Non-reactive (Non-Reactiv) 11/02/23 17:40 HIV 1&2 Antibody Non-reactive (Non-Reactiv) 11/02/23 17:40 Human Metapneumovir PCR Not detected (NOT DETECT) 11/01/23 10:00 Influenza A (H1) PCR Not detected (NOT DETECT) 11/01/23 10:00 Influenza A (H3) PCR Not detected (NOT DETECT) 11/01/23 10:00 Influenza Type A (PCR) Not detected (NOT DETECT) 11/01/23 10:00 Influenza Type B (PCR) Not detected (NOT DETECT) 11/01/23 10:00 M. pneumoniae (PCR) Not detected (NOT DETECT) 11/01/23 10:00 Parainfluenza 1 (PCR) Not detected (NOT DETECT) 11/01/23 10:00 Parainfluenza 2 (PCR) Not detected (NOT DETECT) 11/01/23 10:00 Parainfluenza 3 (PCR) Not detected (NOT DETECT) 11/01/23 10:00 Parainfluenza 4 (PCR) Not detected (NOT DETECT) 11/01/23 10:00 RSV Type A (PCR) Not detected (NOT DETECT) 11/01/23 10:00 RSV Type B (PCR) Not detected (NOT DETECT) 11/01/23 10:00 Entero/Rhino (PCR) Not detected (NOT DETECT) 11/01/23 10:00 SARS-CoV-2 (PCR) Not detected (NOT DETECT) 11/01/23 10:00 Vitals Last Vital Signs Temp 98.0 F 11/05/23 11:33 Pulse 88 11/05/23 11:33 Resp 15 11/05/23 11:33 BP 161/116 11/05/23 11:33 Pulse Ox 93 11/05/23 11:33 O2 Del Method Room Air 11/05/23 11:33 Discharge Plan Discharge Patient Disposition: Home Condition: Stable Prescriptions: New atorvastatin 40 mg Tablet 40 mg PO DAILY 30 Days Qty: 30 0RF tizanidine 4 mg Tablet 2 mg PO BID 30 Days Qty: 30 0RF clonazepam 1 mg Tablet 1 mg PO BID 30 Days Qty: 60 0RF hydralazine 25 mg Tablet 50 mg PO TID 30 Days Qty: 180 0RF amlodipine 5 mg Tablet 10 mg PO DAILY 30 Days Qty: 60 0RF quetiapine 100 mg Tablet 100 mg PO DAILY 30 Days Qty: 30 0RF escitalopram oxalate 10 mg Tablet 10 mg PO DAILY 30 Days Qty: 30 0RF Protonix 40 mg tablet,delayed release (DR/EC) 40 mg PO DAILY 28 Days Qty: 30 0RF ciprofloxacin HCl 500 mg tablet 500 mg PO BID Qty: 6 0RF metronidazole 500 mg tablet 500 mg PO BID 3 Days Qty: 6 0RF Continued docusate sodium 50 mg/5 mL liquid 50 mg PO DAILY nitroglycerin 0.4 mg tablet, sublingual 0.4 mg sublingual Q5M PRN (Reason: chest pain) Rx Instructions: do not exceed 3 doses per episode oxycodone 10 mg tablet 10 mg PO TID PRN (Reason: pain) (DME) HINGED KNEE BRACE See Rx Instructions .Route .MEDSUPPLY Qty: 2 0RF Rx Instructions: As directed. Medical Marijuana See Rx Instructions .ROUTE .COMPLEX Rx Instructions: DIRECTED levalbuterol tartrate 45 mcg/actuation HFA aerosol inhaler 1 puff INHALATION BID Symbicort 160-4.5 mcg/actuation HFA aerosol inhaler 1 puff INHALATION DAILY Discontinued spironolactone 25 mg tablet 25 mg PO DAILY tizanidine 4 mg capsule 4 mg PO TID alprazolam 2 mg tablet 2 mg PO TID quetiapine [Seroquel] 400 mg tablet 400 mg PO DAILY Discharge Orders: Discharge Order (Routine); Ordered 11/05/23 Ordered By: Aram Yap Referrals: Edward Britton MD [Primary Care Provider] - 11/18/23 10:00 am () Discharge Diet: Regular Discharge Activity: Resume usual activity and Increase activity as tolerated Patient Instructions: Ciprofloxacin (By mouth), Metronidazole (By mouth), Hydralazine (By mouth), Amlodipine (By mouth), Altered Mental Status (ED), Opioid Safety, Pain Management Activity Restrictions/Additional Instructions: Multiple medication changes have been done. Take ciprofloxacin and Flagyl which is the antibiotic for next 3 days. Dose of tizanidine has been changed to 2 mg twice daily, Seroquel has been changed to 100 mg nightly, Xanax has been changed to Klonopin 1 mg twice daily and Lexapro 10 mg has been added to your medication. For high blood pressures hydralazine 50 mg 3 times a day along with amlodipine 10 mg daily has been added. Please check your blood pressure daily at home maintain a blood pressure diary and follow-up with a primary care provider within next 2 weeks for further adjustment of medications as possible. Please try to avoid over medications along with amphetamines. Safe discharge plan were discussed in detail with the patient and she verbalized understanding and was agreeable. Discharge Attestations Time Spent in Discharge Care*: greater than 30 min Specific Discharge Activities: educating patient, discussing with pcp/other providers, discussing with case worker/social workers/dc planners, documenting/other paperwork and evaluating patient/reviewing data Status at Discharge: Cognitive status at discharge: cognitively intact, Behavioral status at discharge: cooperative, Functional status at discharge: independent ambulation, Overall status at discharge: patient is back to baseline Quality Metrics Clinical Quality Measures [ No reported AMI, CVA or VTE this stay] Coding Level of Care Code 78677 Total time (in minutes) for Discharge: 60 Diagnoses Generalized anxiety disorder F41.1 Polypharmacy Z79.899 Uncontrolled hypertension I10 Non-ST elevated myocardial infarction (non-STEMI) I21.4 Colitis K52.9 Ischemic colitis K55.9 Bright red blood per rectum K62.5
== END 2023-11-05 13:42 | disposition home or self-care (01) | DRG 280 ==
LOC: ER 05:36 → MEDSURG 05:46 → ICU 08:50 → MEDSURG 11-02 14:18
PROVIDERS: Internal Medicine; Student in an Organized Health Care Education/Training Program; Admitting Provider Internal Medicine; Emergency Provider Emergency Medicine; PCP Family Medicine; Visit Provider Psychiatry & Neurology Psychiatry
DX: I21.4 Non-ST elevation (NSTEMI) myocardial infarction (principal); A41.9 Sepsis, unspecified organism; F11.20 Opioid dependence, uncomplicated; K55.9 Vascular disorder of intestine, unspecified; N17.9 Acute kidney failure, unspecified; K62.5 Hemorrhage of anus and rectum; G89.29 Other chronic pain; M54.9 Dorsalgia, unspecified; E87.6 Hypokalemia; E83.42 Hypomagnesemia; E86.0 Dehydration; I10 Essential (primary) hypertension; F41.1 Generalized anxiety disorder; F32.A Depression, unspecified; K58.0 Irritable bowel syndrome with diarrhea; R41.82 Altered mental status, unspecified; T42.4X5A Adverse effect of benzodiazepines, initial encounter; T40.2X5A Adverse effect of other opioids, initial encounter; T42.8X5A Adverse effect of antiparkinsonism drugs and other central muscle-tone depressants, initial encounter
CPT/HCPCS: 36415; 36416; 71045; 74177; 80048; 80053; 80061; 80306; 80307; 81003; 82274; 82607; 82962; 83036; 83605; 83630; 83735; 83880; 84145; 84443; 84484; 84703; 85025; 85378; 86140; 87040; 87045; 87177; 87209; 87427; 87449; 87486; 87493; 87581; 87633; 87806; 93005; 93306; 94640; 96360; 96372; 99285; C9113; J0360; J1170; J1650; J1980; J2185; J2405; J2543; J3475; J7030; J7120; Q9967

== ENCOUNTER 2023-12-09 15:03 | Outpatient (CLI) | payer MEDICARE, MEDICAID, SELFPAY ==
--- NOTE | 2023-12-09 15:08 | MR_ITS ---
WS: [id number] MRI CERVICAL SPINE NONCONTRAST TECHNIQUE: Sagittal T1, T2 and STIR imaging. Axial T2, gradient, and fiesta imaging. Unable to obtain IV access. Patient refused additional IV attempts. CLINICAL INFORMATION: CERVICAL DEGENERATIVE DISC DZ COMPARISON: MRI 2006 FINDINGS: Susceptibility artifact degrades images. Straightening of the normal cervical lordosis. Moderate spondylitic changes. Anterior cervical fusion C5-6 with interbody fusion graft. Fusion is new since the MRI 2006. Small amount of myelomalacia in the cervical cord at C5-6. C2-C3: Mild facet arthropathy. Mild LEFT and no significant RIGHT foraminal narrowing. Mild facet art hropathy. Spinal canal is patent. C3-C4: Mild disc osteophytic ridging. Moderate facet arthropathy. Moderate LEFT and mild RIGHT bony f oraminal narrowing. Moderate facet arthropathy. C4-C5: LEFT paracentral disc osteophyte protrusion. Indentation LEFT ventral cervical cord. Mild cent ral canal stenosis. Moderate facet arthropathy. Severe LEFT and mild RIGHT bony foraminal narrowing. C5-C6: Postoperative changes ACDF. Moderate LEFT greater than RIGHT bony foraminal narrowing. Mild ce ntral canal stenosis. Moderate facet arthropathy. C6-C7: Central disc osteophyte protrusion with mild central canal stenosis. Moderate LEFT greater jeremías n RIGHT bony foraminal narrowing. Mild facet arthropathy. C7-T1: LEFT paracentral disc osteophyte protrusion with indentation on the LEFT ventral cervical cord . Mild central canal stenosis. Moderate LEFT and no significant RIGHT foraminal narrowing. Moderate f acet arthropathy. T1-T2: Tiny shallow central protrusion at T1-T2 in the upper thoracic spine. Mild RIGHT T1-2 foramina l narrowing. Visualized brain stem structures: Normal. Prevertebral soft tissues: Normal. Nodular RIGHT thyroid. This can be followed up with ultrasound. IMPRESSION: 1. Straightening of the normal cervical lordosis with prior ACDF C5-C6. 2. Mild central canal stenosis C4-C5 due to LEFT paracentral disc osteophyte protrusion. 3. Mild central canal stenosis C5-C6 C6-C7. 4. LEFT paracentral disc osteophyte protrusion C7-T1 with mild central canal stenosis. 5. Multilevel bony foraminal narrowing worse at LEFT C4-C5, LEFT C5-C6, LEFT C6-C7 and LEFT C7-T1.
== END 2023-12-09 15:04 | disposition home or self-care (01) ==
LOC: RAD 15:04
PROVIDERS: PCP Family Medicine; Visit Provider Anesthesiology
DX: M50.30 Other cervical disc degeneration, unspecified cervical region (principal); Z98.1 Arthrodesis status; M48.02 Spinal stenosis, cervical region; M25.78 Osteophyte, vertebrae
CPT/HCPCS: 72141

== ENCOUNTER 2024-01-25 10:11 | Observation (INO) | payer MEDICARE, MEDICAID, SELFPAY ==
[2024-01-25] VITALS (9 sets, daily range): BP systolic 129–159; BP diastolic 75–103; PULSE 51–61; RESP 16–20; TEMP 36.8–37.2; O2SAT 94–99; BMI 32.3
--- NOTE | 2024-01-25 10:16 | XRR_ITS ---
PROCEDURE INFORMATION: Exam: XR Chest Exam date and time: 01/25/2024 10:39 AM Age: 48 years old Clinical indication: Pain; Angina pectoris; Additional info: Chest pain TECHNIQUE: Imaging protocol: Radiologic exam of the chest. Views: 1 view. COMPARISON: CR XR chest 1V portable [id number] 11/01/2023 2:31 AM FINDINGS: Lungs: No consolidation. Pleural spaces: No sizable pleural effusion or pneumothorax. Heart/Mediastinum: No cardiomegaly. Bones/joints: Unremarkable. XR/XR chest 1V portable [id number] IMPRESSION: No acute intrathoracic findings.
--- NOTE | 2024-01-25 10:16 | ECG_ITS ---
[facility] Test Date: 2024-01-25 Pat Name: Roselia Chester Department: Room: Gender: Female Manager Visual: : 1975 Requested By: Karen Clarke Order Number: [id number] Jason MD: Remington Grant M.D. Measurements Intervals [place] Rate: 56 P: 63 [place]: 148 QRS: 42 QRSD: 89 T: 55 QT: 425 QTc: 412 Interpretive Statements SINUS BRADYCARDIA Compared to ECG 11/01/2023 09:20:49 Sinus rhythm no longer present Electronically Signed On 01-25-2024 18:50:46 CDT by Remington Grant M.D. [email or web address]
--- NOTE | 2024-01-25 10:23 | W.ED.CHESTPA ---
HPI - Chest Pain General: Chief Complaint: Chest Pain Stated Complaint: chest pain Time Seen by Provider: 01/25/24 10:16 History of Present Illness: 48-year-old female with a history of tobacco dependence in remission for several years now, chronic pain, COPD and coronary artery disease status post KS and stents about a year ago who presents the emergency room with chest pain. She has pain in her left upper chest and into her neck. She says it hurts worse when she breathes deeply. She is somewhat tender to palpation as well. She describes the pain as sharp. No lower extremity swelling. No nausea or vomiting. No diaphoresis. No abdominal pain. She does complain of a cough that has become much worse over the last couple of days. Review of Systems Narrative: Constitutional symptoms: Negative except as documented in HPI. Skin symptoms: Negative except as documented in HPI. Eye symptoms: Negative except as documented in HPI. ENMT symptoms: Negative except as documented in HPI. Respiratory symptoms: Negative except as documented in HPI. Cardiovascular symptoms: Negative except as documented in HPI. Gastrointestinal symptoms: Negative except as documented in HPI. Genitourinary symptoms: Negative except as documented in HPI. Musculoskeletal symptoms: Negative except as documented in HPI. Neurologic symptoms: Negative except as documented in HPI. Psychiatric symptoms: Negative except as documented in HPI. Endocrine symptoms: Negative except as documented in HPI. PFSH ED PFSH: Medical History (Updated 01/25/24 @ 14:07 by Mona Snyder MD) No significant past medical history Aftercare following surgery of the genitourinary system Odsnprb-Pelql-Ursdb disease Congestive heart failure Surgical History (Updated 11/02/23 @ 15:54 by Aram Yap MD) H/O of anterior colporrhaphy 10/16/2021-anterior colporrhaphy augmented with allograft, single incision mid urethral sling and cystoscopy, performed by Dr. Melendez at [facility] No significant past surgical history History of spinal surgery Neck surgery (2005) History of bladder repair surgery 2 bladder sling surgeries. History of hysterectomy 1998 History of delivery 1998 History of vaginal surgery History of left breast biopsy Breast cancer of left breast removed in 2005. Family History Sister Anesthesia complication Mother Cancer Lung cancer and back cancer Lung disease Diabetes Father Diabetes Other Hypertension Psychiatric illness Denies family history of CAD (coronary artery disease) Clotting disorder Dementia Hyperlipidemia Chronic kidney disease (CKD) Suicide Bleeding disorder Family history of premature coronary artery disease Stroke Social History Substance/Drug Use: never Physical Exam Narrative: EXAM NARRATIVE: General: Alert, no acute distress. Skin: Warm, dry. Head: Normocephalic, atraumatic. Neck: Supple, trachea midline. Eye: Extraocular movements are intact. Ears, nose, mouth and throat: mucosa moist. Cardiovascular: Regular, Normal peripheral perfusion. Respiratory: Lungs are clear to auscultation, respirations are non-labored, breath. sounds are equal, Symmetrical chest wall expansion. Some tenderness to palpation of the left chest wall Gastrointestinal: Soft, Nontender, Non distended, Normal bowel sounds. Musculoskeletal: Normal ROM, no deformity. Neurological: Alert and oriented, No focal neurological deficit observed. Psychiatric: Cooperative, appropriate mood & affect. Course Vital Signs: Vital signs: Vital Signs Temperature 98.2 F 01/25/24 10:21 Pulse Rate 51 L 01/25/24 13:04 Respiratory Rate 16 01/25/24 10:21 Blood Pressure 129/75 01/25/24 13:04 Pulse Oximetry 94 01/25/24 13:04 Oxygen Delivery Me thod Room Air 01/25/24 13:04 MDM - Chest Pain Medical Decision Making Differential diagnosis for patient with chest pain includes but is not limited to and based on the above HPI, review of systems and physical exam: Pneumonia. unstable angina. angina. Acute coronary syndrome / KS. Pulmonary embolism. Costochondritis / musculoskeletal. Pleurisy. Pericarditis. Esophageal spasm. Pancreatis. Cholecystitis. Workup: Lab work, chest X-ray and EKG ordered to evaluate, rule in and rule out above pathologies. Lab Review: Laboratory results were reviewed and interpreted by myself the emergency room physician. No leukocytosis. Hemoglobin is stable at 12.5. BUN and creatinine are 14 and 0.5. Patient's initial troponin was mildly elevated at 16. Her next was more elevated at 50 which is a significant delta. EKG: Time 10:16 AM rate 56 sinus bradycardia, No ST-T changes, no ectopy, normal UT & QRS intervals, This was reviewed and interpreted by myself the ER physician at 10:20 AM EKG: Repeat at 12:18 PM rate 53 sinus bradycardia, No ST-T changes, no ectopy, normal UT & QRS intervals, This was reviewed and interpreted by myself the ER physician at 1225 p.m. Chest x-ray: No acute process. No infiltrate. No pneumothorax. No cardiomegaly. This was reviewed and interpreted by myself the ER physician. Reexamination: Patient remained stable. She continues to have some chest pain. Nitroglycerin and aspirin were ordered. No altered mental status. No increased work of breathing. Studies not ordered: Patient is not tachycardic and not hypoxemic so I have not ordered a CTA because of PE would be very low in my differential. A D-dimer has been added per the hospitalist request. Lab Data 01/25/24 10:31 01/25/24 10:31 Radiology Impressions Chest X-Ray 01/25/24 10:16 IMPRESSION: No acute intrathoracic findings. Laboratory Results WBC 9.98 10^3/uL (3.29-11.43) 01/25/24 10:31 RBC 3.95 10^6/uL (3.85-5.65) 01/25/24 10:31 Hgb 12.50 g/dL (11.27-16.99) 01/25/24 10:31 Hct 37.8 % (36-47) 01/25/24 10:31 MCV 95.7 fl (85-98) 01/25/24 10:31 MCH 31.6 pg (27-33) 01/25/24 10:31 MCHC 33.1 g/dL (30-55) 01/25/24 10:31 RDW 13.1 % (12.1-15.1) 01/25/24 10:31 Plt Count 240 10^3/cmm (157-399) 01/25/24 10:31 MPV 9.9 fL (7.4-10.4) 01/25/24 10:31 Neut % (Auto) 75.0 % 01/25/24 10:31 Lymph % (Auto) 12.0 % 01/25/24 10:31 Owsley % (Auto) 11.1 % 01/25/24 10:31 Eos % (Auto) 1.3 % 01/25/24 10:31 Baso % (Auto) 0.3 % 01/25/24 10:31 Neut # (Auto) 7.48 10^3/uL (1.8-7.7) 01/25/24 10:31 Lymph # (Auto) 1.2 10^3/uL (0.8-4.8) 01/25/24 10:31 [place]wsley # (Auto) 1.1 10^3/uL (0.2-0.9) H 01/25/24 10:31 Eos # (Auto) 0.1 10^3/uL (0.0-0.8) 01/25/24 10:31 Baso # (Auto) 0.0 10^3/uL (0.0-0.1) 01/25/24 10:31 Nucleated RBC % (auto) 0 % 01/25/24 10:31 Nucleated RBCs # 0.0 /100WBC 01/25/24 10:31 Sodium 136 mmol/L (136-145) 01/25/24 10:31 Potassium 3.9 mmol/L (3.5-5.1) 01/25/24 10:31 Chloride 99 mmol/L (98-107) 01/25/24 10:31 Carbon Dioxide 26 mmol/L (22-29) 01/25/24 10:31 Anion Gap 14.9 (5-19) 01/25/24 10:31 BUN 14 mg/dL (6-20) 01/25/24 10:31 Creatinine 0.5 mg/dL (0.5-0.9) 01/25/24 10:31 GFR Calculation 131.1 mL/min (90-130) H 01/25/24 10:31 Glucose 89 mg/dL (65-115) 01/25/24 10:31 Calculated Osmolality 282 mOsm/kg (285-295) L 01/25/24 10:31 Lactic Acid 1.0 mmol/L (0.5-2.2) 01/25/24 10:31 Calcium 9.2 mg/dL (8.5-10.5) 01/25/24 10:31 Total Bilirubin 1.1 mg/dL (0.15-1.2) 01/25/24 10:31 AST 20 U/L (0-32) 01/25/24 10:31 ALT 23 U/L (0-33) 01/25/24 10:31 Alkaline Phosphatase 109 U/L (35-105) H 01/25/24 10:31 Troponin T Baseline 16 ng/L (0-10) H 01/25/24 10:31 Troponin T 120 Minute 16.74 ng/L (0-10) H 01/25/24 12:37 Delta Troponin T 0.74 ABS# (0-10) 01/25/24 12:37 NT-Pro-B Natriuret Pep 264 pg/mL (0-125) H 01/25/24 10:31 Total Protein 6.2 g/dL (6.6-8.7) L 01/25/24 10:31 Albumin 4.1 g/dL (3.5-5.2) 01/25/24 10:31 Globulin 2.1 g/dL (1.3-4.6) 01/25/24 10:31 Coronavirus 229E (PCR) Not detected (NOT DETECT) 01/25/24 10:47 Influenza Type A Ag negative (Negative) 01/25/24 10:47 Influenza Type B Ag negative (Negative) 01/25/24 10:47 SARS-CoV-2 (PCR) Not detected (NOT DETECT) 01/25/24 10:47 All radiology interpretation(s) finalized by discharge Other Data Assessment and plan: Non-ST elevation myocardial infarction Coronary artery disease Chest pain -Nitro and aspirin in the emergency room. -I discussed the patient with the hospitalist on-call who is admitting the patient. - Discussed findings and plan with patient. Answered any questions. - All laboratory values were reviewed and interpreted personally by myself, the ER physician - All imaging was reviewed and interpreted personally by myself, the ER physician. - Evaluation and treatment of this problem were appropriate in the emergency setting Discharge Plan Discharge Patient Disposition: Admitted As Inpatient Admit Provider: Mackenzie Martinez Clinical Impression: Non-ST elevated myocardial infarction, Chest pain, Coronary artery disease Condition: Stable Coding Level of Care Code ED Service Specialist for Lila Hayden
[2024-01-25 10:51] LABS: Basophils % 0.3 %; Eosinophils # 0.1 10^3/uL (0.0-0.8); Eosinophils % 1.3 %; Hematocrit 37.8 % (36-47); Lymphocytes # 1.2 10^3/uL (0.8-4.8); Mean Corpuscular HGB Conc 33.1 g/dL (30-55); Mean Corpuscular Hemoglobin 31.6 pg (27-33); Mean Corpuscular Volume 95.7 fl (85-98); Mean Platelet Volume 9.9 fL (7.4-10.4); Monocytes # 1.1 10^3/uL (0.2-0.9); Monocytes % 11.1 %; Neutrophils # 7.48 10^3/uL (1.8-7.7); Nucleated Red Blood Cells % 0 %; Platelet Count 240 10^3/cmm (157-399); Red Blood Count 3.95 10^6/uL (3.85-5.65); Red Cell Distribution Width 13.1 % (12.1-15.1); White Blood Count 9.98 10^3/uL (3.29-11.43)
[2024-01-25 11:07] LABS: Troponin(5th) Baseline 16 ng/L (0-10)
[2024-01-25 11:12] LABS: Influenza A by IFA negative (Negative); Influenza B by IFA negative (Negative)
[2024-01-25 11:13] LABS: Alanine Aminotransferase 23 U/L (0-33); Albumin Level 4.1 g/dL (3.5-5.2); Alkaline Phosphatase 109 U/L (35-105); Anion Gap 14.9 (5-19); Aspartate Amino Transferase 20 U/L (0-32); Blood Urea Nitrogen 14 mg/dL (6-20); Calcium 9.2 mg/dL (8.5-10.5); Carbon Dioxide 26 mmol/L (22-29); Chloride 99 mmol/L (98-107); Creatinine Clr Calc Pharmacy 154.4147; Globulin 2.1 g/dL (1.3-4.6); Glomerular Filtration Rate 131.1 mL/min (90-130); Glucose 89 mg/dL (65-115); NT Pro B Type Natriuretic Pept 264 pg/mL (0-125); Osmolality Calculated 282 mOsm/kg (285-295); Potassium 3.9 mmol/L (3.5-5.1); Sodium 136 mmol/L (136-145); Total Bilirubin 1.1 mg/dL (0.15-1.2); Total Protein 6.2 g/dL (6.6-8.7)
--- NOTE | 2024-01-25 12:16 | ECG_ITS ---
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 Measurements Intervals [place] Rate: 53 P: 60 WV: 195 QRS: 22 QRSD: 92 T: 53 QT: 445 QTc: 418 Interpretive Statements SINUS BRADYCARDIA Compared to ECG 01/25/2024 10:16:27 No significant changes Electronically Signed On 01-25-2024 18:57:22 CDT by Remington Grant M.D. [email or web address]/[id number]
--- NOTE | 2024-01-25 12:37 | PC.PHAR ---
pt states she takes care of her own medications-pt states she takes quetiapine 100mg hs ext shows last filled 200mg hs pt states she has been breaking the 200mg in half to =100mg-notes are made in the pharmacy comments
[2024-01-25 12:39] LABS: Adenovirus Not Detected (NOT DETECT); Chlamydia Pneumoniae Not Detected (NOT DETECT); Coronavirus 229E,HKU1,NL63,OC4 Not Detected (NOT DETECT); Human Metapneumovirus Not Detected (NOT DETECT); Human Rhinovirus/Enterovirus Not Detected (NOT DETECT); Influenza A Not Detected (NOT DETECT); Influenza A H1 Not Detected (NOT DETECT); Influenza A H1-2009 Not Detected (NOT DETECT); Influenza A H3 Not Detected (NOT DETECT); Influenza B Not Detected (NOT DETECT); Mycoplasma Pneumoniae Not Detected (NOT DETECT); Parainfluenza Virus Type 1 Not Detected (NOT DETECT); Parainfluenza Virus Type 2 Not Detected (NOT DETECT); Parainfluenza Virus Type 3 Not Detected (NOT DETECT); Parainfluenza Virus Type 4 Not Detected (NOT DETECT); Respiratory Syncytial Virus A Not Detected (NOT DETECT); Respiratory Syncytial Virus B Not Detected (NOT DETECT); SARS-COV-2 Not Detected (NOT DETECT)
[2024-01-25 13:04] LABS: Troponin 5 2HR 16.74 ng/L (0-10); Troponin 5 2HR Delta 0.74 ABS# (0-10)
[2024-01-25] MEDS: aspirin 81 mg Chew Tablet 324 MG PO (13:39)
[2024-01-25] MEDS: nitroglycerin 0.4 mg sublingual Tablet 0.400000000000000022 MG SUBLINGUAL (13:44)
[2024-01-25 14:45] LABS: D Dimer 1.43 ug/mLFEU (0-0.59)
--- NOTE | 2024-01-25 15:08 | CTR_ITS ---
PROCEDURE INFORMATION: Exam: CTA Chest With Contrast Exam date and time: 01/25/2024 6:16 PM Age: 48 years old Clinical indication: Other: Chest pain; Additional info: Evaluate for pe, pleuritic chest pain TECHNIQUE: Imaging protocol: Computed tomographic angiography of the chest with contrast. Exam focused on the arteries. 3D rendering (Not supervised by radiologist): MIP and/or 3D reconstructed images were created by the technologist. Radiation optimization: All CT scans at this facility use at least one of these dose optimization techniques: automated exposure control; mA and/or kV adjustment per patient size (includes targeted exams where dose is matched to clinical indication); or iterative reconstruction. Contrast material: OMNI 350; Contrast volume: 70 ml; Contrast route: INTRAVENOUS (IV); COMPARISON: CR XR chest 1V portable [id number] 01/25/2024 10:39 AM RADIATION DOSE METRICS: Total DLP (mGy-cm): 475.92 FINDINGS: Pulmonary arteries: Normal. No pulmonary emboli. Aorta: Unremarkable. No aortic aneurysm. No aortic dissection. Lungs: See Pleural spaces finding. Pleural spaces: Tiny bilateral pleural effusions are noted along with mild bibasilar atelectasis. No lung mass or infiltrate noted. Heart: There is a small pericardial effusion demonstrating a thickness of 1 cm. Lymph nodes: Unremarkable. No enlarged lymph nodes. Bones/joints: Unremarkable. No acute fracture. Soft tissues: Unremarkable. CT/CT angio chest PE protcl [id number] IMPRESSION: Small pericardial and pleural effusions
--- NOTE | 2024-01-25 15:08 | ECG_ITS ---
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 Interpretive Statements NAME OF STUDY: LEXISCAN SESTAMIBI STRESS TEST INDICATION: Atypical Chest Pain PROCEDURE: At the baseline, the EKG revealed sinus bradycardia with a poor R wave progression. The baseline heart was 56 bpm with a blood pressue of 129/91 mm of Hg Lexiscan was infused over a period of 20 seconds. A total of 0.4 milligrams of Lexiscan was infused. The stress phase was continued for a total of 5 minutes. Heart rate at the end of the stress phase was 67 bpm with a blood pressure 119/71 mm of Hg. The EKG at the peak infusion revealed no significant changes. Sestamibi was injected 20 seconds after the Lexiscan infusion. Heart rate at the end of the recovery phase was 61 bpm with a blood pressure of 117/75 mm of Hg. CONCLUSION: 1. No significant EKG changes with the LexiScan infusion 2. No LexiScan induced chest pain or cardiac arrhythmia 3. Normal blood pressure and heart rate response 4. Sestamibi/sestamibi perfusion scan pending; see separate report. Electronically Signed On 01-31-2024 19:52:24 CDT by Remington Grant M.D. [id number]
--- NOTE | 2024-01-25 15:12 | PM.HP ---
Providers/Chief Complaint Admitting Physician: Mackenzie Martinez MD Primary Care Provider: Edward Britton MD Chief Complaint: chest pain History of Present Illness Roselia Chester is a 48 year old female with a remote history of IV drug use, COPD, history of elevated troponins in October 2023 when she was admitted with episodes of hematochezia, advised to stress test but this was never completed. 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 She presents to the emergency room today with chief complaints of on and off chest discomfort for the past 3 to 4 days. Initially she stated that She has a large dog at home that may have jumped on her and then that led to the pain, however later does not think this was the sequence of events.. She reports worsening of the pain with movement, worse with deep breathing, worse with laughing or coughing, worse with trying to walk, improved with passing flatus. She denies any abdominal pain. States that the pain is located under her left breast and radiates to her back. She is worried she has she is having a heart attack and therefore presented to the hospital. EKG is without any acute ST-T wave changes. Baseline troponin is at 16, without significant delta at 2 hours. Review of Systems General: Reports: 10 or more systems reviewed and unremarkable except in HPI and below Const: Denies: fever(s), chills or body aches Eyes: Denies: change in vision, blurry vision or photophobia ENMT: Reports: hoarseness; Denies: throat pain, enlarged tonsils, odynophagia or nasal congestion Card: Denies: chest pain, palpitations, irregular heart rhythm, edema, swelling of feet/ankles, lightheadedness, pre-syncope, dyspnea on exertion or orthopnea Resp: Denies: dyspnea, productive cough, non-productive cough, wheezing, stridor, pain on inspiration, change in phlegm color, hemoptysis or chest congestion GI: Denies: abdominal pain, nausea, vomiting, hematemesis, coffee ground emesis, dysphagia, heartburn, diarrhea, constipation, GI cramping, change in stool character, hematochezia or melena : Denies: flank pain, difficulty voiding, dysuria, urinary frequency, urinary urgency, urinary hesitancy or hematuria Musc: Denies: neck pain, back pain, extremity pain, joint swelling, joint warmth or deformity Neuro: Denies: headache(s), numbness in extremities, weakness in extremities, sensory changes, difficulty walking, frequent falls, dizziness, vertigo, behavioral changes, Slurred speech present or seizure-like activity Psych: Denies: anxiety, depression, suicidal ideation or homicidal ideation Endo: Denies: polyuria, polydipsia, tired all the time, cold intolerance or hot flashes Brian/Lymph: Denies: easy bruising or easy bleeding Medications/Allergies Home Medications Medication Instructions Recorded Confirmed Last Taken Type HINGED KNEE BRACE #2 ea 07/10/21 01/25/24 Unknown Rx nitroglycerin 0.4 mg sublingual 0.4 mg sublingual Q5M PRN chest 10/14/21 01/25/24 10/15/21 History tablet pain budesonide-formoterol HFA 160 2 puff inhalation BID 11/01/23 01/25/24 Unknown History mcg-4.5 mcg/actuation aerosol inhaler (Symbicort) levalbuterol tartrate 45 2 puff inhalation Q6H PRN 11/01/23 01/25/24 Unknown History mcg/actuation aerosol inhaler Shortness Of Breath Metamucil Fiber Gummies 3 tab PO DAILY 01/25/24 01/25/24 Unknown History alprazolam 2 mg tablet 2 mg PO TID 01/25/24 01/25/24 Unknown History ascorbic acid 30 mg-collagen, 3 tab PO DAILY 01/25/24 01/25/24 Unknown History hydrolyzed 833.3 mg tablet (Collagen Skin Renewal) atorvastatin 40 mg tablet 40 mg PO BEDTIME 01/25/24 01/25/24 Unknown History cyanocobalamin (vitamin B-12) 3,000 mcg PO DAILY 01/25/24 01/25/24 Unknown History 1,000 mcg tablet,extended release (Vitamin B-12 ER) diclofenac sodium 50 mg 50 mg PO QAM 01/25/24 01/25/24 Unknown History tablet,delayed release escitalopram oxalate 10 mg tablet 10 mg PO QAM 01/25/24 01/25/24 Unknown History hydralazine 25 mg tablet 25 mg PO TID 01/25/24 01/25/24 Unknown History hydroxyzine HCl 25 mg tablet 25 mg PO BID 01/25/24 01/25/24 Unknown History lactase 9,000 unit tablet See Rx Instructions .Route .COMPLEX 01/25/24 01/25/24 Unknown History multivitamin 1 tab PO DAILY 01/25/24 01/25/24 Unknown History oxycodone 10 mg tablet 10 mg PO TID 01/25/24 01/25/24 01/24/24 History pantoprazole 40 mg tablet,delayed 40 mg PO QAM 01/25/24 01/25/24 Unknown History release polyethylene glycol 3350 17 gram 17 g PO DAILY PRN Constipation 01/25/24 01/25/24 Unknown History oral powder packet (Miralax) quetiapine 200 mg tablet 100 mg PO BEDTIME 01/25/24 01/25/24 01/24/24 History tizanidine 4 mg tablet 6 mg PO TID PRN Muscle Spasm 01/25/24 01/25/24 Unknown History vitamin C 50 mg-biotin 1,250 mcg 3 tab PO DAILY 01/25/24 01/25/24 Unknown History chewable tablet (Lfbm-Esuo-Hcrxh (vit C-biotin)) zinc acetate 50 mg (zinc) capsule 50 mg PO DAILY 01/25/24 01/25/24 Unknown History Allergies Allergy/AdvReac Type Severity Reaction Status Date / Time Latex, Natural Rubber Allergy Intermediate urticaria Verified 01/25/24 10:58 acetaminophen Allergy vomitting Verified 01/25/24 10:58 ketorolac [From Toradol] Allergy ALGY-Anaphy Verified 01/25/24 10:58 laxis morphine Allergy mood Verified 01/25/24 10:58 alteration PFSH Acute PFSH: Medical History No significant past medical history Aftercare following surgery of the genitourinary system Qhxgaen-Jhnts-Oqqxu disease Congestive heart failure Surgical History H/O of anterior colporrhaphy 10/16/2021-anterior colporrhaphy augmented with allograft, single incision mid urethral sling and cystoscopy, performed by Dr. Melendez at [facility] No significant past surgical history History of spinal surgery Neck surgery (2005) History of bladder repair surgery 2 bladder sling surgeries. History of hysterectomy 1998 History of delivery 1998 History of vaginal surgery History of left breast biopsy Breast cancer of left breast removed in 2005. Family History Sister Anesthesia complication Mother Cancer Lung cancer and back cancer Lung disease Diabetes Father Diabetes Other Hypertension Psychiatric illness Denies family history of CAD (coronary artery disease) Clotting disorder Dementia Hyperlipidemia Chronic kidney disease (CKD) Suicide Bleeding disorder Family history of premature coronary artery disease Stroke Social History Substance/Drug Use: never Vitals/I&O/Wt Last Vital Signs Temp 98.2 F 01/25/24 10:21 Pulse 51 L 01/25/24 13:04 Resp 16 01/25/24 10:21 BP 129/75 01/25/24 13:04 Pulse Ox 94 01/25/24 13:04 O2 Del Method Room Air 01/25/24 13:04 Weight last 48 hrs Weight 90.718 kg Physical Exam Narrative: General: No acute distress, AO x3 HEENT: PERRLA, pupils bilaterally equal and reactive, pallors not present Chest: Normal vesicular breath sounds, no added sounds, equal good air entry bilaterally CVS: S1-S2 regular, no murmurs, no tachycardia, no gallops, no rubs Abdomen: Soft, nontender, no organomegaly, bowel sounds present Neuro: No focal deficits, no facial deformity, AO x3, power 5/5 in all limbs Data 01/25/24 10:31 01/25/24 10:31 Micro: Microbiology 01/25/24 10:31 Blood Culture - Preliminary Blood SPECIMEN COLLECTED 01/25/24 10:35 Blood Culture - Preliminary Blood SPECIMEN COLLECTED A&P Assessment and plan (1) Atypical chest pain: Admit to observation in view of atypical chest pain. Patient has some features of a musculoskeletal type of chest pain, however also reports past medical history of NSTEMI in the setting of hematochezia in October 2023. Echocardiogram was overall normal at that time and patient was recommended to undergo cardiac stress test as outpatient which she did not complete thereafter. Given this history, will evaluate with stress test in the a.m. EKG without acute ST-T wave changes, baseline troponin at 16, no significant delta at 2 hours, makes NSTEMI less likely . await 6 hr trend. Additionally ordered D-dimer screening. If positive to proceed with CTA of the chest to evaluate for PE since patient describes some features of a pleuritic chest pain. She is not currently hypoxic therefore suspect pectus to be less likely. Alternate possibility is of musculoskeletal chest pain. As needed hydrocodone APAP, lidocaine patch and pen dilaudid for pain management Attestations Medical Necessity Statement*: less than 2 midnight stay is anticipated for above evaluation Coding Level of Care Code Acute Code for Chg Fwd Diagnoses Atypical chest pain R07.89
--- NOTE | 2024-01-25 16:16 | ECG_ITS ---
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 Measurements Intervals [place] Rate: 51 P: 42 NE: 194 QRS: 1 QRSD: 93 T: 34 QT: 439 QTc: 404 Interpretive Statements SINUS BRADYCARDIA Compared to ECG 01/25/2024 12:18:54 No significant changes Electronically Signed On 01-25-2024 18:58:04 CDT by Remington rGant M.D. [email or web address] S[pecialistsgreene county hospitalInSilico Medicinemer[facility].[employer]/store/OM/[id number]
[2024-01-25 17:46] LABS: Troponin 5 6HR 13.45 ng/L (0-10)
[2024-01-25 17:47] LABS: Troponin 5 6HR Delta -2.55 ng/L (0-12)
[2024-01-25] MEDS: HYDROcodone-acetaminophen 5-325 mg Tablet 1 TAB PO (18:08)
[2024-01-25] MEDS: diphenhydrAMINE 25 mg Capsule PO (18:08)
[2024-01-25] MEDS: iohexol 350 mg/mL 500 mL Btl (per mL) IV (18:21)
[2024-01-25] MEDS: ondansetron 2 mg/ML SDV 2 mL 4 MG IVP (18:28)
[2024-01-25 18:30] LABS: Amphetamines Screen Urine Negative (Negative); Barbiturates Screen Urine Negative (Negative); Benzodiazepines Screen Urine Positive (Negative); Cocaine Screen Urine Negative (Negative); Opiate Screen Urine Negative (Negative); PCP Screen Urine Negative (Negative); THC Screen Urine Positive (Negative)
[2024-01-25] MEDS: oxyCODONE 5 mg IR Tab/Cap 10 MG PO (20:31)
[2024-01-25] MEDS: quetiapine 100 mg Tablet PO (21:19)
[2024-01-25] MEDS: hyDROXYzine 25 mg Capsule PO (21:19)
[2024-01-25] MEDS: atorvastatin 40 mg Tablet PO (21:19)
[2024-01-25] MEDS: hyDRALAzine 25 mg Tablet PO (21:19)
[2024-01-25] MEDS: ALPRAZolam 0.5 mg Tablet 2 MG PO (21:20)
[2024-01-25] MEDS: tizanidine 4 mg Tablet 6 MG PO (21:20)
[2024-01-26] VITALS (7 sets, daily range): BP systolic 80–164; BP diastolic 56–71; PULSE 53–66; RESP 16–19; TEMP 36.9; O2SAT 91–95
[2024-01-26] MEDS: sodium chloride 0.9% 250 ML IV (00:34)
[2024-01-26 05:49] LABS: Basophils % 0.5 %; Eosinophils # 0.2 10^3/uL (0.0-0.8); Eosinophils % 2.5 %; Hematocrit 35.3 % (36-47); Mean Corpuscular Hemoglobin 31.9 pg (27-33); Mean Corpuscular Volume 99.7 fl (85-98); Mean Platelet Volume 9.9 fL (7.4-10.4); Monocytes # 1.2 10^3/uL (0.2-0.9); Monocytes % 13.2 %; Neutrophils # 5.28 10^3/uL (1.8-7.7); Neutrophils % 60.6 %; Nucleated Red Blood Cells % 0 %; Platelet Count 217 10^3/cmm (157-399); Red Blood Count 3.54 10^6/uL (3.85-5.65); Red Cell Distribution Width 13.1 % (12.1-15.1); White Blood Count 8.71 10^3/uL (3.29-11.43)
[2024-01-26 06:35] LABS: Alanine Aminotransferase 20 U/L (0-33); Albumin Level 3.5 g/dL (3.5-5.2); Alkaline Phosphatase 98 U/L (35-105); Anion Gap 10.6 (5-19); Aspartate Amino Transferase 19 U/L (0-32); Blood Urea Nitrogen 19 mg/dL (6-20); Calcium 8.9 mg/dL (8.5-10.5); Carbon Dioxide 29 mmol/L (22-29); Chloride 107 mmol/L (98-107); Creatinine Clr Calc Pharmacy 128.6789; Globulin 2.5 g/dL (1.3-4.6); Glomerular Filtration Rate 106.3 mL/min (90-130); Glucose 91 mg/dL (65-115); Osmolality Calculated 296 mOsm/kg (285-295); Potassium 4.6 mmol/L (3.5-5.1); Sodium 142 mmol/L (136-145); Total Bilirubin 0.9 mg/dL (0.15-1.2)
--- NOTE | 2024-01-26 07:29 | PC.NURSE ---
at beginning of shift pt demanding her home meds, approved by Dr. Christopher and administered. At midnight BP low, bolus [address] Christopher and order received to hold home meds he ordered. Bp remained low , asymptomatic
[2024-01-26] MEDS: regadenoson 0.4 Mg/5 ml Syringe 0.400000000000000022 MG IVP (07:53)
--- NOTE | 2024-01-26 08:00 | NMCV_ITS ---
NM sherri perf SPECT r/s* [id number] Roselia Chester Age: 48 Gender: F : 1975 Exam Date: 01/26/2024 07:11 Ordering Phys: Mackenzie Martinez MD Technologist: DANIELLE Montelongo Exam Location: [facility] Indications: CHEST PAIN STRESS TEST [facility] IMAGE PROTOCOL Rest/Stress 1 Lexiscan Day Radiopharmaceutical Dose (mCi) Administration Site Administered by Rest: Tc-99m 10.6 IV DANIELLE Baumann Sestamibi Stress:Tc-99m 32.7 IV DANIELLE Baumann Sestamibi Rest: 26-Jan-2024 60 Discovery 630 Stress: 26-Jan-2024 30 Discovery 630 0.4mg Lexiscan. Images obtained in supine and prone position. SPECT RESULTS Technical Quality: Excellent Raw Data Analysis: Normal Image Corrections: No attenuation or motion correction applied Summed Stress Score: 1 Summed Rest Score: 5 Summed Difference Score: 0 PERFUSION FINDINGS Small area of decreased to tracer uptake was noted in the apical inferior wall region. No significant reversibility was noted in this area. Significant- artifacts were noted in the inferior wall. The rest imaging FUNCTIONAL RESULTS (calculated via Gated SPECT) Stress Image LV EF (%): 71 Stress EDV (mL):124 TID: 0.97 Stress ESV (mL):36 FUNCTIONAL FINDINGS: Segmental wall motion analysis revealing no gross wall motion abnormalities IMPRESSIONS 1. Myocardial perfusion imaging revealing a small area of persistent decreased tracer uptake in the apical inferior wall region suggesting myocardial scarring versus obstruction artifact. 2. Normal LV ejection fraction of 71%. 3. LV wall motion analysis revealing no gross wall motion abnormalities. 4. Normal LV volume Low probability for coronary ischemia, based on the above findings No similar previous studies are available for comparison Dr Remington Grant MD [facility] (Electronically Signed) Final Date: 26 January 2024 13:11 S
[2024-01-26] MEDS: lidocaine 5% Patch 1 PATCH TOPICAL (09:19)
[2024-01-26] MEDS: pantoprazole DR 40 mg Tablet PO (09:19)
--- NOTE | 2024-01-26 10:11 | PC.CHAP ---
Pastoral Care Encounter/Spiritual Assessment Type of Contact [] Declined county program technician visit [] Patient/Family/Request visit [] Outpatient visit [] Follow-up visit [] Physician referral [] Code/Alert [x] Routine visit [] Staff referral [] Actively dying [] Patient sleeping [x] Family support [] [] Out of room [] Palliative care [] [] Receiving care in room [] Pre-surgical visit [] Trauma [] Long length of stay [] ICU visit [] Other: Relational/Emotional Strength [x] Patient feels connected with others/family/visitors/staff [] Distress [] Loneliness/isolation [] Abandonment Spirituality of Patient [x] Person of Patt [] Attends Anglican of their Patt [x] Believes in Prayer [] Reads Bible or Episcopal materials [] There are Spiritual issues to be addressed 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 Interventions [x] Prayer [x] Active listening [] Non-anxious presence [x] Spiritual/emotional support [] Crisis/trauma care [] Spiritual counseling [] Bereavement support [] Provided bereavement packet [] Provided Bible/devotional materials [] Provided toy/stuffed animal, coloring book to patient or family member [] Provided Communion [] Anointing/[place] [] Salvation [x] Completed spiritual assessment [] Other: Impact on Illness or Injury [] Angry [] Fearful [] Anxious [] Often cries [] Exhaustion [] Unable to work [] Unable to attend restorationist [] Unable to walk/stand [] Unable to read [] Unable to drive [] Unable to eat/drink [] Unable to sleep [] Unable to be with family [] Patient intubated [] Other: Summary Time spent with patient 5 min
[2024-01-26] MEDS: tizanidine 4 mg Tablet 6 MG PO (10:45)
[2024-01-26 11:02] LABS: Erythrocyte Sedimentation Rate 35 mm/hr (0-15)
[2024-01-26 11:23] LABS: C Reactive Protein 58.1 mg/L (0.0-4.9)
[2024-01-26] MEDS: oxyCODONE 5 mg IR Tab/Cap 10 MG PO (11:25)
--- NOTE | 2024-01-26 17:07 | PM.DCS ---
Discharge Providers Date of Admission: 01/25/24 13:36 Date of Discharge: January 26, 2024 Attending Provider at Admission: Mackenzie Martinez MD Attending Provider at Discharge: Mackenzie Martinez MD Primary Care Provider: Edward Britton MD Diagnoses at Discharge Discharge Diagnosis (1) Atypical chest pain: Status: Acute Reason for Visit Reason for Visit: chest pain Brief History: Roselia Chester is a 48 year old female with a remote history of IV drug use, COPD, history of elevated troponins in October 2023 when she was admitted with episodes of hematochezia, advised to stress test but this was never completed. 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 She presented to the emergency room with chief complaints of on and off atypical chest discomfort for the past 3 to 4 days. Initially she stated that She has a large dog at home that may have jumped on her and then that led to the pain, however later does not think this was the sequence of events.. She reports worsening of the pain with movement, worse with deep breathing, worse with laughing or coughing, worse with trying to walk, improved with passing flatus. She denies any abdominal pain. States that the pain is located under her left breast and radiates to her back. her EKG is without any acute ST-T wave changes. troponin series 16--> 16--> 13, without significant delta at 2 and 6 hours. CTA of the chest negative for PE. Showing small pericardial and pleural effusions. Recent echocardiogram from October 2023 at the time of NSTEMI patient had an LVEF of 55 to 60%. No regional wall motion abnormalities. Stress test was ordered which showed small area of decreased tracer uptake in the apical inferior wall region suggesting myocardial scarring versus artifact. LVEF of 71%. Normal LV motion analysis. There was low probability for coronary ischemia based on the above findings. Patient reports being diagnosed with rheumatoid arthritis in the past, however I do not see her being on any directed medications for this. ESR and CRP were ordered which were both noted to be mildly elevated. Potentially with serositis, reported history of inflammatory arthritis, possible that patient may have autoimmune underlying disorder. Will check CECILIA screen, anticipate results to take 5 to 7 days, to be followed up with PCP. Overall suspect her chest pain to be musculoskeletal as she reports worsening with arm movement. Today reports that the pain is worse over her shoulder joint. She is curious to know if some of this pain may be related to loosening of C-spine hardware. Review of chart shows that patient had a recent C-spine MRI which showed multilevel bony foraminal narrowing worse at left C4 C5-T1 levels. Outpatient referrals provided to Dr. Francois, cardiology given past history of hemorrhagic pericarditis, mild pericardial effusion as seen on CTA recently, abnormal stress test. Patient requesting referral to new PCP which has also been provided. Physical Exam Narrative: General: No acute distress, AO x3 HEENT: PERRLA, pupils bilaterally equal and reactive, pallors not present Chest: Normal vesicular breath sounds, no added sounds, equal good air entry bilaterally CVS: S1-S2 regular, no murmurs, no tachycardia, no gallops, no rubs Abdomen: Soft, nontender, no organomegaly, bowel sounds present Neuro: No focal deficits, no facial deformity, AO x3, power 5/5 in all limbs Discharge Data Studies Completed and Pending Completed Studies During Hospitalization Category Date Time Status CTA chest [CT angio chest PE protcl [id number]] Routine Cat Scan 01/25/24 15:08 Completed Cardiac Stress Test MIBI [Sestamibi Stress Test Request Exams 01/25/24 15:08 Draft ] Routine XR chest 1V portable [id number] Urgent Exams 01/25/24 10:16 Completed NM sherri perf SPECT r/s* [id number] Routine Nuc Med 01/26/24 08:00 Completed Pending at discharge Category Date Time Status CECILIA SCREEN [CECILIA Profile Rheumatology] Routine Lab 01/26/24 14:51 Received Blood Culture Stat Lab 01/25/24 10:31 Results CCP [Cyclic Citrullinated Peptide] Routine Lab 01/26/24 14:51 Received Radiology Impressions Chest X-Ray 01/25/24 10:16 IMPRESSION: No acute intrathoracic findings. Chest CTA 01/25/24 15:08 IMPRESSION: Small pericardial and pleural effusions Laboratory Results WBC 8.71 10^3/uL (3.29-11.43) 01/26/24 05:31 RBC 3.54 10^6/uL (3.85-5.65) L 01/26/24 05:31 Hgb 11.30 g/dL (11.27-16.99) 01/26/24 05:31 Hct 35.3 % (36-47) L 01/26/24 05:31 MCV 99.7 fl (85-98) H 01/26/24 05:31 MCH 31.9 pg (27-33) 01/26/24 05:31 MCHC 32.0 g/dL (30-55) 01/26/24 05:31 RDW 13.1 % (12.1-15.1) 01/26/24 05:31 Plt Count 217 10^3/cmm (157-399) 01/26/24 05:31 MPV 9.9 fL (7.4-10.4) 01/26/24 05:31 Neut % (Auto) 60.6 % 01/26/24 05:31 Lymph % (Auto) 23.0 % 01/26/24 05:31 [place] % (Auto) 13.2 % 01/26/24 05:31 Eos % (Auto) 2.5 % 01/26/24 05:31 Baso % (Auto) 0.5 % 01/26/24 05:31 Neut # (Auto) 5.28 10^3/uL (1.8-7.7) 01/26/24 05:31 Lymph # (Auto) 2.0 10^3/uL (0.8-4.8) 01/26/24 05:31 [place] # (Auto) 1.2 10^3/uL (0.2-0.9) H 01/26/24 05:31 Eos # (Auto) 0.2 10^3/uL (0.0-0.8) 01/26/24 05:31 Baso # (Auto) 0.0 10^3/uL (0.0-0.1) 01/26/24 05:31 Nucleated RBC % (auto) 0 % 01/26/24 05:31 Nucleated RBCs # 0.0 /100WBC 01/26/24 05:31 ESR 35 mm/hr (0-15) H 01/26/24 05:31 D-Dimer 1.43 ug/mLFEU (0-0.59) H 01/25/24 11:31 Sodium 142 mmol/L (136-145) 01/26/24 05:31 Potassium 4.6 mmol/L (3.5-5.1) 01/26/24 05:31 Chloride 107 mmol/L (98-107) 01/26/24 05:31 Carbon Dioxide 29 mmol/L (22-29) 01/26/24 05:31 Anion Gap 10.6 (5-19) 01/26/24 05:31 BUN 19 mg/dL (6-20) 01/26/24 05:31 Creatinine 0.6 mg/dL (0.5-0.9) 01/26/24 05:31 GFR Calculation 106.3 mL/min (90-130) 01/26/24 05:31 Glucose 91 mg/dL (65-115) 01/26/24 05:31 Calculated Osmolality 296 mOsm/kg (285-295) H 01/26/24 05:31 Lactic Acid 1.0 mmol/L (0.5-2.2) 01/25/24 10:31 Calcium 8.9 mg/dL (8.5-10.5) 01/26/24 05:31 Total Bilirubin 0.9 mg/dL (0.15-1.2) 01/26/24 05:31 AST 19 U/L (0-32) 01/26/24 05:31 ALT 20 U/L (0-33) 01/26/24 05:31 Alkaline Phosphatase 98 U/L (35-105) 01/26/24 05:31 Troponin T Baseline 16 ng/L (0-10) H 01/25/24 10:31 Troponin T 120 Minute 16.74 ng/L (0-10) H 01/25/24 12:37 Delta Troponin T 0.74 ABS# (0-10) 01/25/24 12:37 Troponin T Hi Sens 6Hr 13.45 ng/L (0-10) H 01/25/24 17:08 Troponin T Hi Sens 6Hr Delta -2.55 ng/L (0-12) L 01/25/24 17:08 C-Reactive Protein 58.1 mg/L (0.0-4.9) H 01/26/24 05:31 NT-Pro-B Natriuret Pep 264 pg/mL (0-125) H 01/25/24 10:31 Total Protein 6.0 g/dL (6.6-8.7) L 01/26/24 05:31 Albumin 3.5 g/dL (3.5-5.2) 01/26/24 05:31 Globulin 2.5 g/dL (1.3-4.6) 01/26/24 05:31 Urine Opiates Screen Negative ng/mL (Negative) 01/25/24 18:10 Ur Barbiturates Screen Negative ng/mL (Negative) 01/25/24 18:10 Ur Phencyclidine Scrn Negative ng/mL (Negative) 01/25/24 18:10 Ur Amphetamines Screen Negative ng/mL (Negative) 01/25/24 18:10 U Benzodiazepines Scrn Positive ng/mL (Negative) H 01/25/24 18:10 Urine Cocaine Screen Negative ng/mL (Negative) 01/25/24 18:10 U Marijuana (THC) Screen Positive ng/mL (Negative) H 01/25/24 18:10 Rheumatoid Factor 11.0 IU/mL (0-14) 01/26/24 14:51 Coronavirus 229E (PCR) Not detected (NOT DETECT) 01/25/24 10:47 Influenza Type A Ag negative (Negative) 01/25/24 10:47 Influenza Type B Ag negative (Negative) 01/25/24 10:47 SARS-CoV-2 (PCR) Not detected (NOT DETECT) 01/25/24 10:47 Vitals Last Vital Signs Temp 98.4 F 01/26/24 12:00 Pulse 66 01/26/24 12:00 Resp 16 01/26/24 12:00 BP 164/70 01/26/24 12:00 Pulse Ox 95 01/26/24 12:00 O2 Del Method Room Air 01/26/24 12:00 Discharge Plan Discharge Patient Disposition: Home Condition: Stable Prescriptions: Continued nitroglycerin 0.4 mg tablet, sublingual 0.4 mg sublingual Q5M PRN (Reason: chest pain) Rx Instructions: do not exceed 3 doses per episode (DME) HINGED KNEE BRACE See Rx Instructions .Route .MEDSUPPLY Qty: 2 0RF Rx Instructions: As directed. levalbuterol tartrate 45 mcg/actuation HFA aerosol inhaler 2 puff INHALATION Q6H PRN (Reason: Shortness Of Breath) budesonide-formoterol [Symbicort] 160-4.5 mcg/actuation HFA aerosol inhaler 2 puff INHALATION BID multivitamin Tablet 1 tab PO DAILY atorvastatin 40 mg tablet 40 mg PO BEDTIME Vitamin B-12 1,000 mcg Tablet Extended Release 3,000 mcg PO DAILY zinc acetate 50 mg (zinc) Capsule 50 mg PO DAILY Miralax 17 gram Powder In Packet 17 g PO DAILY PRN (Reason: Constipation) tizanidine 4 mg tablet 6 mg PO TID PRN (Reason: Muscle Spasm) quetiapine 200 mg tablet 100 mg PO BEDTIME hydralazine 25 mg tablet 25 mg PO TID Dairy-Relief 9,000 unit Tablet See Rx Instructions .ROUTE .COMPLEX Rx Instructions: ONE TAB PO TWICE A DAY NEEDED pantoprazole 40 mg tablet,delayed release (DR/EC) 40 mg PO QAM hydroxyzine HCl 25 mg tablet 25 mg PO BID diclofenac sodium 50 mg tablet,delayed release (DR/EC) 50 mg PO QAM alprazolam 2 mg tablet 2 mg PO TID escitalopram oxalate 10 mg tablet 10 mg PO QAM oxycodone 10 mg tablet 10 mg PO TID MDD 3 TABS Ysmw-Ysiw-Cjoaj (vit C-biotin) 50 mg -1,250 mcg Tablet,Chewable 3 tab PO DAILY Collagen Skin Renewal 30-833.3 mg Tablet 3 tab PO DAILY Metamucil Fiber Gummies 3 tab PO DAILY Discharge Orders: Discharge Order (Routine); Ordered 01/26/24 Ordered By: Mackenzie Ko Ambulatory Orders: Physical Therapy Eval and Treat Outpatient (Order) Timeframe: 3 Days Facility: [facility] - Location: Physical Therapy Ordered By: Mackenzie Martinez Referrals: [facility] for Outpt Therapy [Other] (Someone will call you at home in the next few days, to setup a date & time to follow up for therapy. ) Viraj Francois DO [Physician] - 02/09/24 3:00 pm (h/o c spine surgery with hardware, persistent neck pain ) Remington Grant MD [Physician] - 03/23/24 2:15 pm (abnormal stress test ) Noemí Bauer DO [Physician] - 02/15/24 1:15 pm (establish care with new PCP ) Discharge Diet: Usual diet Discharge Activity: Resume usual activity Patient Instructions: Opioid Safety Discharge Attestations Time Spent in Discharge Care*: greater than 30 min Status at Discharge: Cognitive status at discharge: cognitively intact, Behavioral status at discharge: cooperative, Quality Metrics Clinical Quality Measures [ No reported AMI, CVA or VTE this stay] Coding Level of Care Code Acute Code for Chg Fwd Diagnoses Atypical chest pain R07.89
[2024-01-27 10:25] LABS: CENTROMERE B ANTIBODY <1.0 NEG AI (<1.0 NEG); JO-1 ANTIBODY <1.0 NEG AI (<1.0 NEG); RNP ANTIBODY <1.0 NEG AI (<1.0 NEG); SCL-70 ANTIBODY <1.0 NEG AI (<1.0 NEG); SJOGREN'S ANTIBODY (SS-A) <1.0 NEG AI (<1.0 NEG); SM ANTIBODY <1.0 NEG AI (<1.0 NEG); SS-B <1.0 NEG AI (<1.0 NEG)
[2024-01-27 13:44] LABS: Cyclic Citrullinated Peptide <16 UNITS
[2024-01-27 15:19] LABS: ANA SCREEN, IFA NEGATIVE (NEGATIVE)
[2024-01-27 16:15] LABS: COMPLEMENT COMPONENT C3C 146 mg/dL (83-193); COMPLEMENT COMPONENT C4C 37 mg/dL (15-57); COMPLEMENT, TOTAL (CH50) >60 U/mL (31-60)
[2024-01-28 11:05] LABS: THYROID PEROXIDASE ANTIBODIES 1 IU/mL (<9)
[2024-01-31 13:59] LABS: DNA AB (DS) CRITHIDIA,IFA NEGATIVE (NEGATIVE)
== END 2024-01-26 14:00 | disposition home or self-care (01) ==
LOC: ER 10:43 → MEDSURG 14:06
PROVIDERS: Physician Assistant; Admitting Provider Student in an Organized Health Care Education/Training Program; Emergency Provider Emergency Medicine; PCP Family Medicine; Visit Provider Student in an Organized Health Care Education/Training Program
DX: R07.89 Other chest pain (principal); J44.9 Chronic obstructive pulmonary disease, unspecified; M06.9 Rheumatoid arthritis, unspecified; I50.9 Heart failure, unspecified
CPT/HCPCS: 36415; 71045; 71275; 78452; 80053; 80306; 83605; 83880; 84484; 85025; 85378; 85651; 86140; 86160; 86162; 86200; 86235; 86255; 86376; 86431; 87040; 87635; 87804; 93005; 93017; 96375; 99285; A9500; G0378; J2405; J2785; J7050; Q9967

== ENCOUNTER → 2024-03-23 14:57 | Outpatient (BNVA) | payer OTHER, MEDICAID, SELFPAY | PROVIDERS: PCP Family Medicine; Referring Provider Family Medicine; Visit Provider Internal Medicine | DX: R07.9 Chest pain, unspecified (principal); Z98.890 Other specified postprocedural states; I10 Essential (primary) hypertension; R00.1 Bradycardia, unspecified; Z87.891 Personal history of nicotine dependence; R94.31 Abnormal electrocardiogram [ECG] [EKG] | CPT/HCPCS: 93005; 99204 ==

== ENCOUNTER 2024-06-10 15:08 | Outpatient (CLI) | payer OTHER, MEDICAID, SELFPAY ==
--- NOTE | 2024-06-10 15:00 | MM_ITS ---
WS: [id number] BILATERAL 3D TOMOSYNTHESIS DIGITAL DIAGNOSTIC MAMMOGRAPHY WITH CAD CLINICAL INFORMATION: HX OF BREAST CA HISTORY: LEFT breast cancer 2005 COMPARISON: 2022 TECHNIQUE: Bilateral CC, MLO, and ML views. FINDINGS: Scattered fibroglandular densities bilaterally. A few incidental punctate calcifications. Parenchymal volume loss LEFT breast compared to the RIGHT unchanged. No other suspicious findings. No suspicious focal mass, asymmetry, calcifications, or architectural distortion. No evidence of janice gnancy. MM/[place] [id number] IMPRESSION: BI-RADS: 2-Benign FOLLOW UP: 1 Year Follow-up Recommend return to annual diagnostic mammography.
== END 2024-06-10 15:09 | disposition home or self-care (01) ==
PROVIDERS: PCP Family Medicine; Visit Provider Family Medicine
DX: Z85.3 Personal history of malignant neoplasm of breast (principal); Z12.39 Encounter for other screening for malignant neoplasm of breast; Z12.31 Encounter for screening mammogram for malignant neoplasm of breast
CPT/HCPCS: 77062; G0279

== ENCOUNTER 2024-06-27 13:10 | Outpatient (CLI) | payer MEDICARE, OTHER, MEDICAID, SELFPAY ==
--- NOTE | 2024-06-27 13:15 | USCV_ITS ---
Roselia Chester Age: 49 Gender: F : 1975 Exam Date: 06/27/2024 13:26 Ordering Phys: Michael Magaña M.D ([email or web address]) Technologist: CT [place] [facility] [place] Indication: sob BP: 104 / 64 HR: 54 Rhythm: Sinus Technical Quality: Adequate MEASUREMENTS (Male / Female) Normal Values 2D ECHO LVOT Diameter 2.1 cm LV Ejection Fraction MOD 4C 55.7 % LV Ejection Fraction MOD 2C 67.6 % LV Ejection Fraction 2C AL 70.3 % LA Diameter 3.0 cm RA Systolic Volume 4C AL 59.1 ml RA Systolic Volume 4C MOD 57.2 ml LA Sys Volume AL 70.2 cm cubed LA Sys Volume Index AL 32.0 cm cubed/m squared Aorta at Sinotubular Diameter 2.8 cm IVC Diameter 1.9 cm M-MODE LA Ao Ratio MM 1.3 AV Cusp Separation MM 2.4 cm DOPPLER AV Peak Velocity 159.0 cm/s LVOT Peak Velocity 106.0 cm/s AV Area Cont Eq vti 2.2 cm squared AV Area Cont Eq pk 2.2 cm squared MV Peak Velocity 120.0 cm/s MV Area PHT 3.0 cm squared Mitral E to A Ratio 1.1 TV Peak Velocity 241.0 cm/s TR Peak Velocity 287.0 cm/s TR Peak Gradient 32.9 mmHg TV Peak E Velocity 74.0 cm/s Right Atrial Pressure 3.0 mmHg Pulmonary Artery Systolic Pressu 35.9 mmHg PV Peak Velocity 120.0 cm/s FINDINGS Left Ventricle Left ventricle is normal in size. LV systolic function is normal with EF of 55 to 60%. No regional wall motion abnormalities are seen. Right Ventricle Normal in size and function Right Atrium Normal in size Left Atrium Normal in size Mitral Valve Structurally normal mitral valve. Mild mitral regurgitation. Aortic Valve Structurally normal aortic valve. No significant stenosis or regurgitation. Tricuspid Valve Mild tricuspid regurgitation. Insufficient TR jet to calculate RVSP Pulmonic Valve Trace pulmonic regurgitation. Pericardium Normal Aorta Normal in size IVC Appears to be normal CONCLUSIONS LV systolic function is normal with EF of 55 to 60%. Mild mitral regurgitation. Mild tricuspid regurgitation Trace pulmonic regurgitation Compared to prior echocardiogram from 2022, no significant changes are seen. Michael Magaña MD (Electronically Signed) Final Date: 01 July 2024 22:39 S
== END 2024-06-27 13:11 | disposition home or self-care (01) ==
LOC: RAD 13:10
PROVIDERS: PCP Family Medicine; Visit Provider Internal Medicine
DX: R07.9 Chest pain, unspecified (principal); R06.02 Shortness of breath
CPT/HCPCS: 93306

== ENCOUNTER 2024-08-28 14:15 | Emergency (ER) | payer MEDICARE, MEDICAID, SELFPAY ==
[2024-08-28 14:38] VITALS: BP 135/70; PULSE 67; TEMP 36.8; O2SAT 98; BMI 35.5
--- NOTE | 2024-08-28 14:47 | ED_ITS ---
HPI - Wound/Laceration General: Chief Complaint: Wound/Laceration Stated Complaint: Left foot wound Time Seen by Provider: 08/28/24 14:43 History of Present Illness: Patient was breaking up the ground with a metal bar when she accidentally stuck the top of her left foot. Patient is ambulatory without difficulty. Patient has good range of motion of the foot. Patient has a 2 cm laceration to the area between the second and third metatarsal distal. No bone crepitus or deformity is noted. Patient cannot remember her last tetanus. Related Data Home Medications Medication Instructions Recorded Confirmed nitroglycerin 0.4 mg sublingual 0.4 mg sublingual Q5M PRN chest 10/14/21 08/24/24 tablet pain alprazolam 2 mg tablet 2 mg PO TID 01/25/24 08/24/24 atorvastatin 40 mg tablet 40 mg PO BEDTIME 01/25/24 08/24/24 diclofenac sodium 50 mg 50 mg PO QAM 01/25/24 08/24/24 tablet,delayed release escitalopram oxalate 10 mg tablet 10 mg PO QAM 01/25/24 08/24/24 hydroxyzine HCl 25 mg tablet 25 mg PO BID 01/25/24 08/24/24 lactase 9,000 unit tablet See Rx Instructions .Route .COMPLEX 01/25/24 08/24/24 multivitamin 1 tab PO DAILY 01/25/24 08/24/24 oxycodone 10 mg tablet 10 mg PO TID 01/25/24 08/24/24 polyethylene glycol 3350 17 gram 17 g PO DAILY PRN Constipation 01/25/24 08/24/24 oral powder packet (Miralax) quetiapine 200 mg tablet 100 mg PO BEDTIME 01/25/24 08/24/24 tizanidine 4 mg tablet 6 mg PO TID PRN Muscle Spasm 01/25/24 08/24/24 AZO PO 05/30/24 08/24/24 Fiber Vitamin PO 05/30/24 08/24/24 Previous Rx's Medication Instructions Recorded HINGED KNEE BRACE #2 ea 05/18/24 bilateral hinged ankle braces #1 ea 05/18/24 famotidine 40 mg tablet 40 mg PO DAILY #90 tabs 05/18/24 nebulizer and kit #1 ea 06/17/24 mometasone-formoterol HFA 100 2 puff inhalation BID #13 grams 07/19/24 mcg-5 mcg/actuation aerosol inhaler (Dulera) ipratropium 0.5 mg-albuterol 3 mg 3 ml inhalation QID PRN wheezing 08/08/24 (2.5 mg base)/3 mL nebulization #90 mL soln hydralazine 25 mg tablet 25 mg PO TID #270 tabs 08/23/24 levalbuterol tartrate 45 2 puff inhalation Q6H PRN 08/24/24 mcg/actuation aerosol inhaler Shortness Of Breath #15 grams nitrofurantoin macrocrystal 100 mg 100 mg PO BID 3 days #6 caps 08/24/24 capsule oxybutynin chloride 5 mg 5 mg PO DAILY #30 tabs 08/24/24 tablet,extended release 24 hr amoxicillin 875 mg-potassium 1 tab PO BID #14 tabs 08/28/24 clavulanate 125 mg tablet Allergies Allergy/AdvReac Type Severity Reaction Status Date / Time Latex, Natural Rubber Allergy Intermediate urticaria Verified 08/28/24 14:42 acetaminophen Allergy vomitting Verified 08/28/24 14:42 ketorolac [From Toradol] Allergy ALGY-Anaphy Verified 08/28/24 14:42 laxis morphine Allergy mood Verified 08/28/24 14:42 alteration tramadol Allergy ADR-Abdominal Verified 08/28/24 14:42 Pain Review of Systems General: Reports: 10 or more systems reviewed and unremarkable except in HPI and below Musc: Reports: extremity pain PFSH ED PFSH: Medical History Chronic, continuous use of opioids Chronic pain COPD (chronic obstructive pulmonary disease) GERD (gastroesophageal reflux disease) Coronary artery disease No significant past medical history Aftercare following surgery of the genitourinary system Itlqkxg-Wwzgy-Etjmq disease Congestive heart failure Surgical History H/O of anterior colporrhaphy 10/16/2021-anterior colporrhaphy augmented with allograft, single incision mid urethral sling and cystoscopy, performed by Dr. Melendez at [facility] No significant past surgical history History of spinal surgery Neck surgery (2005) History of bladder repair surgery 2 bladder sling surgeries. History of hysterectomy 1998 History of delivery 1998 History of vaginal surgery History of left breast biopsy Breast cancer of left breast removed in 2005. Family History Sister Anesthesia complication Mother Cancer Lung cancer and back cancer Lung disease Diabetes Father Diabetes Other Hypertension Psychiatric illness Denies family history of CAD (coronary artery disease) Clotting disorder Dementia Hyperlipidemia Chronic kidney disease (CKD) Suicide Bleeding disorder Family history of premature coronary artery disease Stroke Social History Smoking and tobacco/nicotine status: former use of tobacco/nicotine Alcohol intake: never Substance/Drug Use: current Substance/Drug use frequency: daily Physical Exam Const: COMMON NORMALS: alert HENMT: COMMON NORMALS: normocephalic HEAD & SCALP: normocephalic Neck/C-Spine: COMMON NORMALS: full ROM Resp: COMMON NORMALS: normal respiratory effort Cardio: COMMON NORMALS: regular rate RATE: regular rate Back/Pelvis: COMMON NORMALS: thoracic and lumbar spine normal to inspection Extremity: LEFT LOWER EXTREMITY: Yes foot & digits (2 cm laceration dorsal mid left foot.) Left foot and digits: Yes inspection (Laceration, bone intact), Yes palpation (No foreign body or crepitus), Yes ROM (Normal), Yes neurovascular exam (Normal) and Yes tendon exam (Normal) Neuro: SENSORIUM/ORIENTATION: Yes alert Skin: TRAUMA: laceration (Left dorsal foot) linear Procedures Laceration Laceration 1: Site: lower extremity Side (If applicable): left Size (cm): 2 Description: linear Depth: simple, single layer Local Anesthetic: lidocaine 1% Amount of anesthesia used (mL): 5 Pre-repair: wound explored and irrigated extensively Skin layer closed with: nylon Size (cm): 5-0 Number of sutures: 2 Technique: simple, interrupted Course Vital Signs: Vital signs: Vital Signs Temperature 98.2 F 08/28/24 14:38 Pulse Rate 67 08/28/24 14:38 Blood Pressure 135/70 08/28/24 14:38 Pulse Oximetry 98 08/28/24 14:38 Oxygen Delivery Me thod Room Air 08/28/24 14:38 MDM - Wound/Laceration Medical Decision Making 49-year-old female comes in today for injury to the dorsal left foot. On exam patient has a 2 cm laceration to the dorsal left foot between the second and third metatarsal. It is in the distal part of the foot. No crepitus or bony deformity is palpated. No foreign body is noted. Differential diagnosis includes foreign body, laceration, need for prophylaxis tetanus, fracture. No severe injury is noted. No fracture or foreign bodies noted. Wound was thoroughly irrigated with saline and then closed with 2 sutures loosely. Patient tolerated well. Patient was placed in on Augmentin will be continued on that for 7 days with instructions to have sutures out. No radiology studies performed this visit Discharge Plan Discharge Patient Disposition: Home Clinical Impression: Puncture wound of foot, left Qualifiers: Encounter type: initial encounter Qualified Code(s): S91.332A - Puncture wound without foreign body, left foot, initial encounter Condition: Stable Prescriptions: New amoxicillin-pot clavulanate 875-125 mg tablet 1 tab PO BID Qty: 14 0RF No Action nitroglycerin 0.4 mg tablet, sublingual 0.4 mg sublingual Q5M PRN (Reason: chest pain) Rx Instructions: do not exceed 3 doses per episode AZO PO Fiber Vitamin PO famotidine 40 mg tablet 40 mg PO DAILY Qty: 90 1RF (DME) bilateral hinged ankle braces See Rx Instructions .Route .MEDSUPPLY Qty: 1 0RF Rx Instructions: As directed (DME) HINGED KNEE BRACE See Rx Instructions .Route .MEDSUPPLY Qty: 2 0RF Rx Instructions: As directed. nitrofurantoin macrocrystal 100 mg capsule 100 mg PO BID 3 Days Qty: 6 0RF Rx Instructions: must administer with a meal/food oxybutynin chloride 5 mg tablet extended release 24hr 5 mg PO DAILY Qty: 30 0RF (DME) nebulizer and kit See Rx Instructions .Route .MEDSUPPLY Qty: 1 0RF Rx Instructions: As directed for medication 99LON Dulera 100-5 mcg/actuation HFA aerosol inhaler 2 puff inhalation BID Qty: 13 1RF ipratropium-albuterol 0.5 mg-3 mg(2.5 mg base)/3 mL solution for nebulization 3 ml inhalation QID PRN (Reason: wheezing) Qty: 90 1RF hydralazine 25 mg tablet 25 mg PO TID Qty: 270 0RF levalbuterol tartrate 45 mcg/actuation HFA aerosol inhaler 2 puff INHALATION Q6H PRN (Reason: Shortness Of Breath) Qty: 15 1RF multivitamin Tablet 1 tab PO DAILY atorvastatin 40 mg tablet 40 mg PO BEDTIME Miralax 17 gram Powder In Packet 17 g PO DAILY PRN (Reason: Constipation) tizanidine 4 mg tablet 6 mg PO TID PRN (Reason: Muscle Spasm) quetiapine 200 mg tablet 100 mg PO BEDTIME lactase 9,000 unit Tablet See Rx Instructions .ROUTE .COMPLEX Rx Instructions: ONE TAB PO TWICE A DAY NEEDED hydroxyzine HCl 25 mg tablet 25 mg PO BID diclofenac sodium 50 mg tablet,delayed release (DR/EC) 50 mg PO QAM alprazolam 2 mg tablet 2 mg PO TID escitalopram oxalate 10 mg tablet 10 mg PO QAM oxycodone 10 mg tablet 10 mg PO TID MDD 3 TABS Discharge Orders: Discharge ED (Routine); Ordered 08/28/24 Ordered By: Wesley Davis Referrals: Dat Grant MD [Primary Care Provider] - Discharge Diet: Usual diet Discharge Activity: Increase activity as tolerated Patient Instructions: Puncture Wound (ED) Activity Restrictions/Additional Instructions: Keep wound clean and dry. Is very important keep the wound dry for the first 48 hours. After that she can wash the wound with mild soap and water but not submerge underwater for long periods of time. Sutures need to come out in 7 to 10 days. Follow-up with primary care in 1 week for recheck. Take antibiotics as directed. Coding Level of Care Code ED Sound Installation Worker for Lila Hayden
[2024-08-28] MEDS: amoxicillin-clav 875-125 mg Tablet 1 TAB PO (15:33)
[2024-08-28] MEDS: tetanus-dipt-pertussis 0.5 mL SDV IM (15:33)
[2024-08-28 15:49] VITALS: PULSE 71; O2SAT 99
== END 2024-08-28 15:51 | disposition home or self-care (01) ==
PROVIDERS: Emergency Provider Nurse Practitioner Family; PCP Family Medicine
DX: S91.332A Puncture wound without foreign body, left foot, initial encounter (principal); Z87.891 Personal history of nicotine dependence; J44.9 Chronic obstructive pulmonary disease, unspecified; I25.10 Atherosclerotic heart disease of native coronary artery without angina pectoris; I50.9 Heart failure, unspecified; W22.8XXA Striking against or struck by other objects, initial encounter; Z23 Encounter for immunization
CPT/HCPCS: 12001; 90715; 99283

== ENCOUNTER → 2024-09-07 08:26 | Outpatient (BNVA) | payer MEDICARE, MEDICAID, SELFPAY | PROVIDERS: PCP Family Medicine; Visit Provider Obstetrics & Gynecology | DX: N81.10 Cystocele, unspecified (principal); Z90.710 Acquired absence of both cervix and uterus; N83.202 Unspecified ovarian cyst, left side | CPT/HCPCS: 76830 ==

== ENCOUNTER → 2024-10-27 13:23 | Outpatient (BNVA) | payer MEDICARE, MEDICAID, SELFPAY | PROVIDERS: PCP Family Medicine; Visit Provider Podiatrist Foot & Ankle Surgery | DX: G60.0 Hereditary motor and sensory neuropathy; M79.671 Pain in right foot; M79.672 Pain in left foot | CPT/HCPCS: 73600; 73630; 99203 ==

== ENCOUNTER 2024-12-27 13:16 | Observation (INO) | payer MEDICARE, MEDICAID, SELFPAY ==
[2024-12-27] VITALS (17 sets, daily range): BP systolic 112–176; BP diastolic 59–87; PULSE 58–77; RESP 16–18; TEMP 36.1–36.7; O2SAT 93–100; BMI 36.6
[2024-12-27] MEDS: famotidine 20 mg/2 mL INJ IVP (11:15)
[2024-12-27] MEDS: scopolamine 1 mg PATCH 1 PATCH TRANSDERMA (11:16)
[2024-12-27] MEDS: sodium chloride 0.9% 1,000 ML 30 ML IV (11:17)
--- NOTE | 2024-12-27 11:18 | ANES.PREANE2 ---
Pre-Anesthetic Assessment Height/Weight: Height 5 ft 5 in Weight 220 lb Temp Pulse Resp BP Pulse Ox O2 Del Method 97.8 F 59 L 18 131/76 95 Room Air 12/27/24 10:47 12/27/24 10:47 12/27/24 10:47 12/27/24 10:47 12/27/24 10:47 12/27/24 10:55 Preop Diagnosis: cystocele Operation Date: 12/27/24 12:20 Proposed Procedures p Anterior Repair Anterior Colporrhaphy 60139, N81.10(Not Applicable) - Pan Melendez MD s Allograft Allograft Augmentation(Not Applicable) - Pan Melendez MD Was Beta Teresa taken within 24 hours: N/A Was Clonidine taken within 24 hours: N/A Last intake: Intake Last Liquid Date 12/26/24 Last Liquid Time 23:55 Last Solid Date 12/26/24 Last Solid Time 23:55 Social No alcohol and No tobacco Quit smoking in 2018 Exam alert, oriented x 3 and regular rate & rhythm Airway Submandibular: within normal limits Cervical ROM: within normal limits Mallampati: Class II Dentition: full Anesthetic Plan ASA status: 3 Anesthesia: General Other: No prior issues with anesthesia NPO since yesterday evening History of hypertension on hydralazine Patient states that she has severe anxiety takes Xanax daily Chronic pain meds, oxycodone 10 mg 3 times daily Patient has Charcot Desire tooth syndrome. States she has numbness/tingling of bilateral upper and lower extremities Patient states that she is able to perform ADLs Plan for general anesthesia Medications/Allergies Home Medications ?Medication ?Instructions ?Recorded ?Confirmed ?Last Taken ?Type alprazolam 2 mg tablet 2 mg PO TID 01/25/24 12/26/24 12/27/24 History atorvastatin 40 mg tablet 40 mg PO BEDTIME 01/25/24 12/26/24 12/25/24 History diclofenac sodium 50 mg 50 mg PO BID 01/25/24 12/26/24 12/26/24 History tablet,delayed release escitalopram oxalate 10 mg tablet 10 mg PO QAM 01/25/24 12/26/24 12/26/24 History hydroxyzine HCl 25 mg tablet 25 mg PO BID 01/25/24 12/26/24 12/27/24 History lactase 9,000 unit tablet 9,000 unit PO DAILY PRN 01/25/24 12/26/24 12/26/24 History Constipation multivitamin 1 tab PO DAILY 01/25/24 12/26/24 12/26/24 History oxycodone 10 mg tablet 10 mg PO TID 01/25/24 12/26/24 12/27/24 History polyethylene glycol 3350 17 gram 17 g PO DAILY 01/25/24 12/26/24 12/26/24 History oral powder packet (Miralax) quetiapine 200 mg tablet 100 mg PO BEDTIME 01/25/24 12/26/24 12/25/24 History tizanidine 4 mg tablet 6 mg PO TID PRN Muscle Spasm 01/25/24 12/26/24 12/27/24 History HINGED KNEE BRACE #2 ea 05/18/24 12/19/24 Unknown Rx bilateral hinged ankle braces #1 ea 05/18/24 12/19/24 Unknown Rx nebulizer and kit #1 ea 06/17/24 12/19/24 Unknown Rx ipratropium 0.5 mg-albuterol 3 mg 3 ml inhalation QID PRN wheezing 08/08/24 12/26/24 Unknown Rx (2.5 mg base)/3 mL nebulization #90 mL soln nitroglycerin 0.4 mg sublingual 0.4 mg sublingual Q5M PRN chest 09/01/24 12/26/24 Unknown Rx tablet pain #30 tabs buspirone 10 mg tablet 10 mg PO BID 09/15/24 12/26/24 12/27/24 History oxybutynin chloride 5 mg 5 mg PO DAILY #30 tabs 10/03/24 12/26/24 12/26/24 Rx tablet,extended release 24 hr levalbuterol tartrate 45 2 puff inhalation Q6H PRN 10/07/24 12/26/24 12/26/24 Rx mcg/actuation aerosol inhaler Shortness Of Breath #15 grams Bilateral AFO #1 ea 10/27/24 12/19/24 Unknown Rx famotidine 40 mg tablet 40 mg PO DAILY #30 tabs 11/07/24 12/26/24 12/26/24 Rx hydralazine 25 mg tablet 25 mg PO TID #90 tabs 11/07/24 12/26/24 12/27/24 Rx mometasone-formoterol HFA 100 2 puff inhalation BID #8.8 grams 11/07/24 12/26/24 Unknown Rx mcg-5 mcg/actuation aerosol inhaler (Dulera) pantoprazole 40 mg tablet,delayed 40 mg PO BID 12/26/24 12/26/24 12/27/24 History release (Protonix) Allergies Allergy/AdvReac Type Severity Reaction Status Date / Time Latex, Natural Rubber Allergy Intermediate urticaria Verified 12/26/24 12:04 acetaminophen Allergy vomitting Verified 12/26/24 12:04 ketorolac (From Toradol) Allergy ALGY-Anaphy Verified 12/26/24 12:04 laxis morphine Allergy mood Verified 12/26/24 12:04 alteration topiramate (From Topamax) Allergy ALGY-Anaphy Verified 12/26/24 12:12 laxis tramadol Allergy ADR-Abdominal Verified 12/26/24 12:04 Pain [facility] Anesthesia Medical History Chronic, continuous use of opioids Chronic pain COPD (chronic obstructive pulmonary disease) GERD (gastroesophageal reflux disease) Coronary artery disease No significant past medical history Aftercare following surgery of the genitourinary system Cxxshlx-Ybtbu-Nbjat disease Congestive heart failure Surgical History H/O of anterior colporrhaphy 10/16/2021-anterior colporrhaphy augmented with allograft, single incision mid urethral sling and cystoscopy, performed by Dr. Melendez at [facility] No significant past surgical history History of spinal surgery Neck surgery (2005) History of bladder repair surgery 2 bladder sling surgeries. History of hysterectomy 1998 History of delivery 1998 History of vaginal surgery History of left breast biopsy Breast cancer of left breast removed in 2005. Family History Sister Anesthesia complication Mother Cancer Lung cancer and back cancer Lung disease Diabetes Father Diabetes Other Hypertension Psychiatric illness Denies family history of CAD (coronary artery disease) Clotting disorder Dementia Hyperlipidemia Chronic kidney disease (CKD) Suicide Bleeding disorder Family history of premature coronary artery disease Stroke Social History Smoking and tobacco/nicotine status: former use of tobacco/nicotine Alcohol intake: never Substance/Drug Use: current Substance/Drug use frequency: daily Data Anesthesia Cardiac Studies: Echocardiogram 06/27/24 Sestamibi Stress Test (Cardiology) 01/25/24 Cardiac Event Monitor 03/23/24
--- NOTE | 2024-12-27 11:20 | W.PM.OPSUD ---
Surgery/Procedure H&P Update DATE OF PROCEDURE: December 27, 2024 DATE H&P PERFORMED: 12/19/24 H&P UPDATE INFORMATION: I have reviewed H&P completed within last 30 days, I have examined patient prior to procedure and No changes to prior documentation PREOP DIAGNOSIS: cystocele PLANNED PROCEDURE: Operation Date: 12/27/24 12:20 Proposed Procedures p Anterior Repair Anterior Colporrhaphy 31954, N81.10(Not Applicable) - Pan Melendez MD s Allograft Allograft Augmentation(Not Applicable) - Pan Melendez MD
[2024-12-27] MEDS: ceFAZolin 2,000 mg SDV 2000 MG IVP (11:37)
[2024-12-27 11:46] LABS: Basophils # 0.1 10^3/uL (0.0-0.1); Basophils % 0.6 %; Eosinophils # 0.4 10^3/uL (0.0-0.8); Eosinophils % 5.1 %; Lymphocytes # 1.9 10^3/uL (0.8-4.8); Mean Corpuscular HGB Conc 32.6 g/dL (30-55); Mean Corpuscular Hemoglobin 31.1 pg (27-33); Mean Corpuscular Volume 95.5 fl (85-98); Mean Platelet Volume 10.1 fL (7.4-10.4); Monocytes # 0.8 10^3/uL (0.2-0.9); Monocytes % 10.7 %; Neutrophils # 4.62 10^3/uL (1.8-7.7); Neutrophils % 59.3 %; Nucleated Red Blood Cells % 0 %; Platelet Count 290 10^3/cmm (157-399); Red Cell Distribution Width 12.9 % (12.1-15.1); White Blood Count 7.79 10^3/uL (3.29-11.43)
[2024-12-27] MEDS: lidocaine-epi 2% PF 1:200,000 20 mL SDV INJECTION (12:12)
[2024-12-27 12:18] LABS: Add Urine Microscopic? NO
[2024-12-27 12:33] LABS: Bilirubin Urine Negative (Negative); Blood Urine Negative (Negative); Glucose Urine UA Negative (Normal); Ketones Urine Negative (Negative); Leukocyte Esterase Urine Negative (Negative); Nitrate Urine Negative (Negative); Protein Urine Negative (Negative); Specific Gravity, Urine 1.021 (1.005-1.030); Urine Appearance Clear (CLEAR); Urine Color Yellow (Yellow); Urobilinogen Urine 0.2 mg/dL (Negative)
--- NOTE | 2024-12-27 12:52 | P.BOP_ITS ---
Date of Procedure: 12/27/24 Surgeon: Pan Melendez MD Document Imaging Specialist(s): Procedure(s) performed: Anterior colporrhaphy Findings of the procedure(s): Cystocele Estimated blood loss: 5 Specimen(s) removed: Post-operative diagnosis: Post anterior colporrhaphy
[2024-12-27 12:54] LABS: Add Urine Culture? No; Charge for UA Resulting for Rev
--- NOTE | 2024-12-27 12:54 | PM.OP ---
Operative Report Date of procedure: December 27, 2024 Pre-op diagnosis: cystocele Post-op diagnosis: same Procedure done: Anterior colporrhaphy Surgeon: Pan Melendez MD Estimated blood loss (mL): 5 IV fluids (mL): 700 Urine output (mL): 200 Findings: Cystocele Procedure: After obtaining informed consent, the patient was taken to the operating room and placed in the supine position, given general anesthesia, and prepped and draped in sterile fashion. The abdomen, vulva and vagina were prepped and draped in a sterile manner. A time out procedure was performed. The vaginal mucosa was then injected in the midline with 2% lidocaine with epinephrine. The vaginal mucosa was scored in the midline with the Bovie approximately 1 cm medial to the urethral meatus to 1 cm distal to the vaginal cuff. This vaginal mucosa was then undermined and then incised in the midline with the Metzenbaum scissors. The lateral aspects of the vaginal mucosa were then grasped with the Allis clamps and the vaginal mucosa was then dissected off the underlying fascia with the Metzenbaum scissors. Again, there was noted to be quite a bit of oozing at the incision, which was controlled with cautery. After adequate dissection was performed, bilaterally. Then Interrupted vertical mattress sutures of 0 Vicryl were used to elevate the cystocele superiorly. The excessive vaginal mucosa was then trimmed with the Metzenbaum scissors and the vaginal mucosa was then reapproximated in the running interlocking fashion with 2-0 Vicryl. Then the Sher catheter was removed and cystoscope was inserted. The bladder was filled with sterile water. Complete evaluation of the bladder mucosa was performed noting no lacerations, dimpling, tears, bleeding of the mucosa or muscular layers. Both ureteral orifices were identified. Prompt excretion of urine from both ureteral orifices was noted. Cystoscope was withdrawn. The Sher catheter was replaced. Excellent hemostasis was obtained. A vaginal pack is placed overnight as postoperative support for the vaginal tissues after graft placement and closure of vaginal incisions. Sponge, lap, needle, and instrument counts were correct times three. The patient was taken to the recovery room, awake and in stable condition.
--- NOTE | 2024-12-27 13:20 | ANE.PACU2 ---
Inpatient post-anesthesia follow up: Airway intact: Yes Vital signs: Temperature 97.0 F Pulse Rate 77 Respiratory Rate 16 Blood Pressure 124/61 Pulse Oximetry 96 Oxygen Delivery Me thod Room Air Oxygen Flow Rate 8 Fraction of Inspir ed Oxygen Hydration adequate: Yes Nausea and vomiting: No Pain level: 1 Mental status: Baseline
[2024-12-27] MEDS: hyDRALAzine 25 mg Tablet PO ×2 (14:20→20:23)
[2024-12-27] MEDS: ALPRAZolam 0.5 mg Tablet 2 MG PO ×2 (14:20→20:23)
[2024-12-27] MEDS: oxyCODONE 5 mg IR Tab/Cap PO ×2 (14:20→22:13)
[2024-12-27] MEDS: flu vacc pf 24-25 (6 mos+) SYRINGE 45 MCG IM (14:21)
[2024-12-27] MEDS: dextrose 5%-lactated ringers 1,000 ML 125 ML IV (14:23)
[2024-12-27] MEDS: hyDROXYzine 25 mg Capsule PO (17:58)
[2024-12-27] MEDS: docusate sodium 100 mg Capsule PO (17:58)
[2024-12-27] MEDS: pantoprazole DR 40 mg Tablet PO (17:59)
[2024-12-27] MEDS: ibuprofen 800 mg tablet PO (17:59)
[2024-12-27] MEDS: BuSPIRONE 10 mg Tablet PO (17:59)
[2024-12-27] MEDS: simethicone 80 mg Chew PO (20:23)
[2024-12-27] MEDS: sodium chloride 0.9% 500 ML IV (20:23)
[2024-12-27] MEDS: quetiapine 100 mg Tablet PO (20:23)
[2024-12-27] MEDS: atorvastatin 40 mg Tablet PO (20:23)
[2024-12-28] VITALS: BP 117/69; PULSE 60; RESP 18; TEMP 36.6; O2SAT 95
[2024-12-28] MEDS: dextrose 5%-lactated ringers 1,000 ML 125 ML IV (00:44)
[2024-12-28 05:00] VITALS: BP 125/75; PULSE 62; RESP 18; TEMP 36.5; O2SAT 94
[2024-12-28] MEDS: escitalopram 10 mg Tablet PO (05:18)
[2024-12-28 05:39] VITALS: RESP 18
[2024-12-28] MEDS: oxyCODONE 5 mg IR Tab/Cap PO (05:39)
--- NOTE | 2024-12-28 05:41 | PC.NURSE ---
Vaginal packing removed. Patient tolerated the procedure well. No bleeding noted.
[2024-12-28 05:49] LABS: Hematocrit 40.2 % (36-47); Mean Corpuscular HGB Conc 32.8 g/dL (30-55); Mean Corpuscular Volume 94.4 fl (85-98); Mean Platelet Volume 9.7 fL (7.4-10.4); Platelet Count 252 10^3/cmm (157-399); Red Blood Count 4.26 10^6/uL (3.85-5.65); Red Cell Distribution Width 12.8 % (12.1-15.1); White Blood Count 12.31 10^3/uL (3.29-11.43)
[2024-12-28] MEDS: budesonide 0.5 mg/2 mL Neb INHALATION (08:24)
[2024-12-28] MEDS: albuterol 2.5 mg/3 mL Neb INHALATION (08:24)
[2024-12-28 08:28] VITALS: PULSE 75; RESP 18; O2SAT 96
[2024-12-28] MEDS: polyethylene glycol 3350 Pkt 17 gm PO (08:40)
[2024-12-28] MEDS: famotidine 20 mg Tablet 40 MG PO (08:41)
[2024-12-28] MEDS: docusate sodium 100 mg Capsule PO (08:42)
[2024-12-28] MEDS: hyDRALAzine 25 mg Tablet PO (08:42)
[2024-12-28] MEDS: BuSPIRONE 10 mg Tablet PO (08:42)
[2024-12-28] MEDS: pantoprazole DR 40 mg Tablet PO (08:42)
[2024-12-28] MEDS: multivitamin therapeutic Tablet 1 TAB PO (08:42)
[2024-12-28] MEDS: oxybutynin chloride XL 5 MG TABLET PO (08:43)
[2024-12-28] MEDS: hyDROXYzine 25 mg Capsule PO (08:43)
[2024-12-28 08:45] VITALS: BP 126/67; PULSE 70; RESP 17; TEMP 36.5; O2SAT 97
[2024-12-28] MEDS: ALPRAZolam 0.5 mg Tablet 2 MG PO (09:23)
--- NOTE | 2024-12-28 11:20 | P.DS_ITS ---
Discharge Providers ADMINISTRATIVE SERVICES SPECIALIST Date of Admission: 12/27/24 13:16 Date of Discharge: 12/28/24 Attending Provider at Admission: Pan Melendez MD Attending Provider at Discharge: Pan Melendez MD Primary Care Provider: Dat Grant MD Reason for Visit Reason for Visit: N81.10 Hospital Course Hospital Course Mrs. Chester 49-year-old female with a history of recurrent cystocele. Admitted for planned an anterior colporrhaphy. The procedure was performed without complication. Overnight observation was uneventful. She is afebrile and hemodynamically stable postoperative day 1. PVR within normal limits. Tolerating diet well. Ambulating without difficulty. She was counseled regarding pelvic rest for 6 weeks (no sex, no tampons, no vaginal douches). R eturn to the emergency room if any fever, increased bleeding or pain. Physical Exam Narrative: GA: Alert and oriented ?3. HEENT: WNL. Heart: Regular rate and rhythm. Lungs: Clear to auscultation bilaterally. Abdomen: Bowel sounds present, nontender. 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 Extremities: No edema, no cyanosis, no calves pain. Urinary Catheter Management: Sher: Cath Placed During This Visit: yes, but has since been removed by the nurse Reason for Continuing Indwelling Catheter: Decision to DC Catheter Urinary Catheter Date of Insertion: 12/27/24 Urinary Catheter Time of Insertion: 12:04 Date Urinary Catheter Removed: 12/28/24 Time Urinary Catheter Discontinued: 05:37 History History History 7 Term 4 0 Miscarriages/Ectopic 3 Living Children 4 Discharge Data Studies Completed and Pending Laboratory Results WBC 12.31 10^3/uL (3.29-11.43) H 12/28/24 05:35 RBC 4.26 10^6/uL (3.85-5.65) 12/28/24 05:35 Hgb 13.20 g/dL (11.27-16.99) 12/28/24 05:35 Hct 40.2 % (36-47) 12/28/24 05:35 MCV 94.4 fl (85-98) 12/28/24 05:35 MCH 31.0 pg (27-33) 12/28/24 05:35 MCHC 32.8 g/dL (30-55) 12/28/24 05:35 RDW 12.8 % (12.1-15.1) 12/28/24 05:35 Plt Count 252 10^3/cmm (157-399) 12/28/24 05:35 MPV 9.7 fL (7.4-10.4) 12/28/24 05:35 Neut % (Auto) 59.3 % 12/27/24 11:20 Lymph % (Auto) 24.0 % 12/27/24 11:20 [place] % (Auto) 10.7 % 12/27/24 11:20 Eos % (Auto) 5.1 % 12/27/24 11:20 Baso % (Auto) 0.6 % 12/27/24 11:20 Neut # (Auto) 4.62 10^3/uL (1.8-7.7) 12/27/24 11:20 Lymph # (Auto) 1.9 10^3/uL (0.8-4.8) 12/27/24 11:20 [place] # (Auto) 0.8 10^3/uL (0.2-0.9) 12/27/24 11:20 Eos # (Auto) 0.4 10^3/uL (0.0-0.8) 12/27/24 11:20 Baso # (Auto) 0.1 10^3/uL (0.0-0.1) 12/27/24 11:20 Nucleated RBC % (auto) 0 % 12/27/24 11:20 Nucleated RBCs # 0.0 /100WBC 12/27/24 11:20 Sodium Cancelled 12/27/24 11:20 Potassium Cancelled 12/27/24 11:20 Chloride Cancelled 12/27/24 11:20 Carbon Dioxide Cancelled 12/27/24 11:20 Anion Gap Cancelled 12/27/24 11:20 BUN Cancelled 12/27/24 11:20 Creatinine Cancelled 12/27/24 11:20 GFR Calculation Cancelled 12/27/24 11:20 Glucose Cancelled 12/27/24 11:20 Calculated Osmolality Cancelled 12/27/24 11:20 Calcium Cancelled 12/27/24 11:20 Total Bilirubin Cancelled 12/27/24 11:20 AST Cancelled 12/27/24 11:20 ALT Cancelled 12/27/24 11:20 Alkaline Phosphatase Cancelled 12/27/24 11:20 Total Protein Cancelled 12/27/24 11:20 Albumin Cancelled 12/27/24 11:20 Globulin Cancelled 12/27/24 11:20 Urine Color Yellow (Yellow) 12/27/24 12:10 Urine Appearance Clear (CLEAR) 12/27/24 12:10 Urine pH 6.0 (5-7) 12/27/24 12:10 Ur Specific [place] 1.021 (1.005-1.030) 12/27/24 12:10 Urine Protein Negative (Negative) 12/27/24 12:10 Urine Glucose (UA) Negative (Normal) 12/27/24 12:10 Urine Ketones Negative (Negative) 12/27/24 12:10 Urine Blood Negative (Negative) 12/27/24 12:10 Urine Nitrate Negative (Negative) 12/27/24 12:10 Urine Bilirubin Negative (Negative) 12/27/24 12:10 Urine Urobilinogen 0.2 mg/dL (Negative) 12/27/24 12:10 Ur Leukocyte Esterase Negative (Negative) 12/27/24 12:10 Amorphous Sediment Not Reportable 12/27/24 12:10 Blood Type Cancelled 12/27/24 11:20 Rho(D) Type Cancelled 12/27/24 11:20 Antibody Screen Cancelled 12/27/24 11:20 Vitals Last Vital Signs Temp 97.7 F 12/28/24 08:45 Pulse 70 12/28/24 08:45 Resp 17 12/28/24 08:45 BP 126/67 12/28/24 08:45 Pulse Ox 97 12/28/24 08:45 O2 Del Method Room Air 12/28/24 08:45 O2 Flow Rate 8 12/27/24 13:05 Results Labs OB ([facility]): Hct 40.2 % (36-47) 12/28/24 Hgb 13.20 g/dL (11.27-16.99) 12/28/24 Plt Count 252 10^3/cmm (157-399) 12/28/24 HIV 1&2 Ab & HIV 1 Ag Non-reactive (Non-Reactiv) 11/02/23 TSH 1.20 uIU/mL (0.27-4.20) 11/01/23 Hemoglobin A1c 4.7 % (4.0-6.0) 11/01/23 HCG, Qual Negative (Negative) 11/01/23 Urine Opiates Screen Negative ng/mL (Negative) 01/25/24 Ur Barbiturates Screen Negative ng/mL (Negative) 01/25/24 Ur Phencyclidine Scrn Negative ng/mL (Negative) 01/25/24 Ur Amphetamines Screen Negative ng/mL (Negative) 01/25/24 U Benzodiazepines Scrn Positive ng/mL (Negative) H 01/25/24 Urine Cocaine Screen Negative ng/mL (Negative) 01/25/24 U Marijuana (THC) Screen Positive ng/mL (Negative) H Discharge Plan Discharge Patient Disposition: Home Condition: Stable Prescriptions: New oxycodone 5 mg tablet 5 mg PO Q6H PRN (Reason: Postoperative pain) Qty: 14 0RF Rx Instructions: Patient not allergic to oxycodone Continued buspirone 10 mg tablet 10 mg PO BID (DME) bilateral hinged ankle braces See Rx Instructions .Route .MEDSUPPLY Qty: 1 0RF Rx Instructions: As directed (DME) HINGED KNEE BRACE See Rx Instructions .Route .MEDSUPPLY Qty: 2 0RF Rx Instructions: As directed. (DME) Bilateral AFO See Rx Instructions .Route .MEDSUPPLY Qty: 1 0RF Rx Instructions: As directed by Arpan Martin duration of length 99 (DME) nebulizer and kit See Rx Instructions .Route .MEDSUPPLY Qty: 1 0RF Rx Instructions: As directed for medication 99LON ipratropium-albuterol 0.5 mg-3 mg(2.5 mg base)/3 mL solution for nebulization 3 ml inhalation QID PRN (Reason: wheezing) Qty: 90 1RF nitroglycerin 0.4 mg tablet, sublingual 0.4 mg sublingual Q5M PRN (Reason: chest pain) Qty: 30 6RF Rx Instructions: do not exceed 3 doses per episode oxybutynin chloride 5 mg tablet extended release 24hr 5 mg PO DAILY Qty: 30 2RF levalbuterol tartrate 45 mcg/actuation HFA aerosol inhaler 2 puff INHALATION Q6H PRN (Reason: Shortness Of Breath) Qty: 15 1RF Dulera 100-5 mcg/actuation HFA aerosol inhaler 2 puff inhalation BID Qty: 8.8 0RF hydralazine 25 mg tablet 25 mg PO TID Qty: 90 0RF famotidine 40 mg tablet 40 mg PO DAILY Qty: 30 0RF multivitamin Tablet 1 tab PO DAILY atorvastatin 40 mg tablet 40 mg PO BEDTIME polyethylene glycol 3350 [Miralax] 17 gram Powder In Packet 17 g PO DAILY tizanidine 4 mg tablet 6 mg PO TID PRN (Reason: Muscle Spasm) quetiapine 200 mg tablet 100 mg PO BEDTIME lactase 9,000 unit Tablet 9,000 unit PO DAILY PRN (Reason: Constipation) Rx Instructions: ONE TAB PO TWICE A DAY NEEDED hydroxyzine HCl 25 mg tablet 25 mg PO BID diclofenac sodium 50 mg tablet,delayed release (DR/EC) 50 mg PO BID alprazolam 2 mg tablet 2 mg PO TID escitalopram oxalate 10 mg tablet 10 mg PO QAM oxycodone 10 mg tablet 10 mg PO TID MDD 3 TABS pantoprazole [Protonix] 40 mg Tablet,Delayed Release (Dr/Ec) 40 mg PO BID Discharge Orders: Discharge Order (Routine); Ordered 12/28/24 Ordered By: Pan Melendez Referrals: Noemí Bauman APN, WHNP [Nurse Practitioner] - 01/11/25 1:00 pm Pan Melendez MD [Physician] - 6 Weeks Discharge Diet: Usual diet Discharge Activity: Limit activity as instructed Patient Instructions: Acute Wound Care (DC), Opioid Safety (DC), Anterior Vaginal Repair (DC), OB Discharge Report, OB Food/Drug Interaction Guide, Opioid Safety, Post Anesthesia Care Activity Restrictions/Additional Instructions: 1. Please call [facility] on next working day to make your post-operative appointment in 2 weeks. 2. Please stay home until you come back to the clinic on first post- hospatilization check up. 3. Please follow instructions on your medications CAREFULLY. 4. If you have abdominal incision, do not cover it unless dressing is necessary because of drainage. OK to shower, but avoid bath. Leave steri-strips until they fall off. If they are still on one week after surgery, you may remove them. 5. If you had vaginal surgery or vaginal repair, Dr. Melendez may instruct you to take SITZ bath. 6. Yellow, blood tinged odorous vaginal discharge is usually normal after hysterectomy or vaginal surgeries. 7. No SEXUAL INTERCOURSE, tampons, or douches until you are completely released from the post-operative care. 8. Avoid constipation by eating right and maybe using some Metamucil or Milk of Magnesia. 9. All prescription refills are given during the working hours. Please do no wait till it runs out. Call the clinic at [phone] before your medication runs out. The clinic will get in touch with your doctor to prescribe medications if necessary. 10. Please remain within 40 mile radius from our hospital because emergencies do happen now and then during the post-operative period. 11. If you have stairs at home, take one step at a time slowly and minimize the number of trips. It helps to stay in one floor for the next few days. No lifting except what you can lift by one hand until you are released from the post-operative care. 12. Driving is discouraged until you are well healed. It may be 3-4 weeks before you feel strong enough to drive. You should be able to turn and look through the rear window without pain and you should be able to push the brake pedal very hard without pain before you drive. No fast rules, but SAFETY should be your primary concern. DO NOT drive if you are on sedating medications such as narcotics. 13. Call the clinic (during working hours) to make urgent appointment or go to the Emergency room, if any of the following occurs: i. Vaginal bleeding becomes heavy, more than a period. ii. Incision becomes red and sore, or drains pus. iii. Your TEMPERATURE is over 100.4F or you have chill. iv. IV site becomes red and swollen (a little ``knot?? is usually OK) v. Persistent nausea and vomiting vi. Persistent constipation or diarrhea vii. Rash or allergic reaction to medications. Discharge Attestations ADMINISTRATIVE SERVICES SPECIALIST Time Spent in Discharge Care*: greater than 30 min Status at Discharge: Cognitive status at discharge: cognitively intact , Behavioral status at discharge: cooperative , Coding Level of Care Code Acute Code for Chg Jackelyn
[2024-12-28 12:20] VITALS: BP 143/77; PULSE 80; RESP 16; TEMP 36.6; O2SAT 96
== END 2024-12-28 12:25 | disposition home or self-care (01) ==
LOC: OBGYN 13:16
PROVIDERS: Admitting Provider Obstetrics & Gynecology; PCP Family Medicine; Visit Provider Obstetrics & Gynecology
PROC: 0JQC0ZZ Repair Pelvic Region Subcutaneous Tissue and Fascia, Open Approach (ICD-10-PCS; CPT 57240; principal; 2024-12-27 12:20)
DX: N81.10 Cystocele, unspecified (principal); F41.9 Anxiety disorder, unspecified; I10 Essential (primary) hypertension; Z79.899 Other long term (current) drug therapy; G60.0 Hereditary motor and sensory neuropathy; Z88.5 Allergy status to narcotic agent; Z88.8 Allergy status to other drugs, medicaments and biological substances; Z91.040 Latex allergy status; I25.10 Atherosclerotic heart disease of native coronary artery without angina pectoris; K21.9 Gastro-esophageal reflux disease without esophagitis; J44.9 Chronic obstructive pulmonary disease, unspecified; I50.9 Heart failure, unspecified; N83.202 Unspecified ovarian cyst, left side; G89.29 Other chronic pain; Z90.710 Acquired absence of both cervix and uterus; Z85.3 Personal history of malignant neoplasm of breast; Z87.891 Personal history of nicotine dependence
CPT/HCPCS: 57240; 36415; 81003; 85025; 85027; 90471; 90686; 94640; A4216; G0378; J0690; J1100; J1200; J2250; J2405; J2704; J3010; J3490; J7030; J7040; J7121; J7613; J7626

== ENCOUNTER 2025-01-16 18:56 | Emergency (ER) | payer MEDICARE, MEDICAID, SELFPAY ==
[2025-01-16 19:00] VITALS: BP 92/59; PULSE 76; RESP 18; TEMP 36.9; O2SAT 95; BMI 35.7
--- NOTE | 2025-01-16 19:03 | ECG_ITS ---
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
--- NOTE | 2025-01-16 19:05 | XRR_ITS ---
PROCEDURE INFORMATION: Exam: XR Chest Exam date and time: 01/16/2025 8:25 PM Age: 49 years old Clinical indication: Pain; Chest pressure; Prior surgery; Surgery date: 6+ months; Surgery type: Left breast CA; Additional info: Chest pain TECHNIQUE: Imaging protocol: Radiologic exam of the chest. Views: 1 view. COMPARISON: CT angio chest PE protcl [id number] 01/25/2024 6:16 PM FINDINGS: Lungs: Left basal atelectasis. Pleural spaces: Left pleural effusion. There is no pneumothorax. Heart/Mediastinum: There is cardiomegaly. Bones/joints: No acute osseous abnormality. XR/XR chest 1V portable [id number] IMPRESSION: Left pleural effusion with left basal atelectasis.
--- NOTE | 2025-01-16 19:51 | W.ED.CHESTPA ---
HPI - Chest Pain General: Chief Complaint: Chest Pain Stated Complaint: chest pain Time Seen by Provider: 01/16/25 19:26 History of Present Illness: Is a 49-year-old female with history of tobacco use and cessation, possible coronary disease with reported heart attack but no stents in the past, chronic pain syndrome and anxiety on 10 mg oxycodone and 2 mg Xanax multiple times a day and recent rhizotomies who follows with the pain clinic in [place] who presents emergency room with chest pain today. Left chest and shoulder pain. She says it is sharp. This does hurt some with breathing and with coughing. When she coughs it shoots pain up into her neck. She says she took a nitro this morning that helped. She also complains of some old hardware that may be irritating a nerve in her neck. Related Data Home Medications ?Medication ?Instructions ?Recorded ?Confirmed alprazolam 2 mg tablet 2 mg PO TID 01/25/24 01/11/25 atorvastatin 40 mg tablet 40 mg PO BEDTIME 01/25/24 01/11/25 diclofenac sodium 50 mg 50 mg PO BID 01/25/24 01/11/25 tablet,delayed release escitalopram oxalate 10 mg tablet 10 mg PO QAM 01/25/24 01/11/25 hydroxyzine HCl 25 mg tablet 25 mg PO BID 01/25/24 01/11/25 lactase 9,000 unit tablet 9,000 unit PO DAILY PRN 01/25/24 01/11/25 Constipation multivitamin 1 tab PO DAILY 01/25/24 01/11/25 oxycodone 10 mg tablet 10 mg PO TID 01/25/24 01/11/25 polyethylene glycol 3350 17 gram 17 g PO DAILY 01/25/24 01/11/25 oral powder packet (Miralax) quetiapine 200 mg tablet 100 mg PO BEDTIME 01/25/24 01/11/25 tizanidine 4 mg tablet 6 mg PO TID PRN Muscle Spasm 01/25/24 01/11/25 buspirone 10 mg tablet 10 mg PO BID 09/15/24 01/11/25 pantoprazole 40 mg tablet,delayed 40 mg PO BID 12/26/24 01/11/25 release (Protonix) Previous Rx's ?Medication ?Instructions ?Recorded HINGED KNEE BRACE #2 ea 05/18/24 bilateral hinged ankle braces #1 ea 05/18/24 nebulizer and kit #1 ea 06/17/24 ipratropium 0.5 mg-albuterol 3 mg 3 ml inhalation QID PRN wheezing 08/08/24 (2.5 mg base)/3 mL nebulization #90 mL soln oxybutynin chloride 5 mg 5 mg PO DAILY #30 tabs 10/03/24 tablet,extended release 24 hr Bilateral AFO #1 ea 10/27/24 famotidine 40 mg tablet 40 mg PO DAILY #30 tabs 12/29/24 hydralazine 25 mg tablet 25 mg PO TID #90 tabs 12/29/24 levalbuterol tartrate 45 2 puff inhalation Q6H PRN 12/29/24 mcg/actuation aerosol inhaler Shortness Of Breath #15 grams mometasone-formoterol HFA 100 2 puff inhalation BID #8.8 grams 12/29/24 mcg-5 mcg/actuation aerosol inhaler (Dulera) metronidazole 500 mg tablet 500 mg PO BID #14 tabs 01/11/25 Allergies Allergy/AdvReac Type Severity Reaction Status Date / Time Latex, Natural Rubber Allergy Intermediate urticaria Verified 01/16/25 19:09 acetaminophen Allergy vomitting Verified 01/16/25 19:09 adhesive tape Allergy ALGY-Bliste Verified 01/16/25 19:09 r ketorolac (From Toradol) Allergy ALGY-Anaphy Verified 01/16/25 19:09 laxis morphine Allergy mood Verified 01/16/25 19:09 alteration topiramate (From Topamax) Allergy ALGY-Anaphy Verified 01/16/25 19:09 laxis tramadol Allergy ADR-Abdominal Verified 01/16/25 19:09 Pain Review of Systems Narrative: Constitutional symptoms: Negative except as documented in HPI. Skin symptoms: Negative except as documented in HPI. Eye symptoms: Negative except as documented in HPI. ENMT symptoms: Negative except as documented in HPI. Respiratory symptoms: Negative except as documented in HPI. Cardiovascular symptoms: Negative except as documented in HPI. Gastrointestinal symptoms: Negative except as documented in HPI. Genitourinary symptoms: Negative except as documented in HPI. Musculoskeletal symptoms: Negative except as documented in HPI. Neurologic symptoms: Negative except as documented in HPI. Psychiatric symptoms: Negative except as documented in HPI. Endocrine symptoms: Negative except as documented in HPI. PFSH ED PFSH: Medical History (Updated 01/16/25 @ 22:27 by Mona Snyder MD) Chronic, continuous use of opioids Chronic pain COPD (chronic obstructive pulmonary disease) GERD (gastroesophageal reflux disease) Coronary artery disease No significant past medical history Agutedl-Ivbvs-Efrzc disease Congestive heart failure Surgical History (Updated 01/11/25 @ 13:28 by Noemí Bauman APN, DMITRY) S/P anterior colporrhaphy (~12/27/24) H/O of anterior colporrhaphy 10/16/2021-anterior colporrhaphy augmented with allograft, single incision mid urethral sling and cystoscopy, performed by Dr. Melendez at [facility] History of spinal surgery Neck surgery (2005) History of bladder repair surgery 2 bladder sling surgeries. History of hysterectomy 1998 History of delivery 1998 History of vaginal surgery History of left breast biopsy Breast cancer of left breast removed in 2005. Family History Sister Anesthesia complication Mother Cancer Lung cancer and back cancer Lung disease Diabetes Father Diabetes Other Hypertension Psychiatric illness Denies family history of CAD (coronary artery disease) Clotting disorder Dementia Hyperlipidemia Chronic kidney disease (CKD) Suicide Bleeding disorder Family history of premature coronary artery disease Stroke Social History Smoking and tobacco/nicotine status: former use of tobacco/nicotine Alcohol intake: never Substance/Drug Use: current Substance/Drug use frequency: daily Physical Exam Narrative: EXAM NARRATIVE: General: Alert, no acute distress. Skin: Warm, dry. Head: Normocephalic, atraumatic. Neck: Supple, trachea midline. Eye: Extraocular movements are intact. Ears, nose, mouth and throat: mucosa moist. Cardiovascular: Regular, Normal peripheral perfusion. Respiratory: Lungs are clear to auscultation, respirations are non-labored, breath sounds are equal, Symmetrical chest wall expansion. Gastrointestinal: Soft, Nontender, Non distended Musculoskeletal: Normal ROM, no deformity. Neurological: Alert and oriented, No focal neurological deficit observed. Psychiatric: Cooperative, appropriate mood & affect. Course Vital Signs: Vital signs: Vital Signs Temperature 98.5 F 01/16/25 19:00 Pulse Rate 80 01/16/25 22:38 Respiratory Rate 18 01/16/25 19:00 Blood Pressure 116/83 01/16/25 22:38 Pulse Oximetry 92 01/16/25 22:38 Oxygen Delivery Me thod Room Air 01/16/25 19:00 MDM - Chest Pain Medical Decision Making Differential diagnosis for patient with chest pain includes but is not limited to and based on the above HPI, review of systems and physical exam: Pneumonia. unstable angina. angina. Acute coronary syndrome / ID. Pulmonary embolism. Costochondritis / musculoskeletal. Pleurisy. Pericarditis. Esophageal spasm. Pancreatis. Cholecystitis. Orders placed to evaluate differential diagnosis based on the above differential, HPI and physical exam EKG: Time 1903. Rate 73. Normal sinus rhythm, No ST-T changes, no ectopy, normal TN & QRS intervals, This was reviewed and interpreted by myself the ER physician at 1906. Repeat EKG: Time 214. Rate 71. Normal sinus rhythm, No ST-T changes, no ectopy, normal TN & QRS intervals, This was reviewed and interpreted by myself the ER physician at 2155. No significant changes from EKG done previously today in the emergency room. Chest x-ray: Radiology has some concern for a left pleural effusion. This is not in the area of her pain and likely is unrelated to this history. I see no acute process. No infiltrate. No pneumothorax. This was reviewed and interpreted by myself the emergency room physician. I also reviewed the radiology report. Lab Review: Laboratory results were reviewed and interpreted by myself the emergency room physician. No leukocytosis. No anemia. No renal failure. Serial troponins are negative. I reviewed the patient's medical record. Reexamination: Patient remained stable. No increased work of breathing. No altered mental status. No focal motor deficits. I discussed the findings with patient and she states she is ready to go home. Given her negative troponins and atypical presentation for cardiac chest pain she is being discharged. Assessment and plan: Noncardiac chest pain Chronic pain syndrome - Discharged home - Discussed plan with patient. Answered any questions. - Evaluation and treatment of this problem were appropriate in the emergency setting. Lab Data 01/16/25 20:47 01/16/25 19:45 Radiology Impressions Chest X-Ray 01/16/25 19:05 IMPRESSION: Left pleural effusion with left basal atelectasis. Laboratory Results WBC 11.03 10^3/uL (3.29-11.43) 01/16/25 20:47 RBC 4.47 10^6/uL (3.85-5.65) 01/16/25 20:47 Hgb 13.60 g/dL (11.27-16.99) 01/16/25 20: Hct 42.4 % (36-47) 01/16/25: MCV 94.9 fl (85-98) 01/16/25 20: MCH 30.4 pg (27-33) 01/16/25: MCHC 32.1 g/dL (30-55) 01/16/25: RDW 12.4 % (12.1-15.1) 01/16/25 20: Plt Count 384 10^3/cmm (157-399) 01/16/25 20: MPV 9.3 fL (7.4-10.4) 01/16/25 20:47 Neut % (Auto) 65.1 % 01/16/25 20:47 Lymph % (Auto) 16.6 % 01/16/25 20:47 [place] % (Auto) 14.1 % 01/16/25:47 Eos % (Auto) 3.4 % 01/16/25: Baso % (Auto) 0.5 % 01/16/25:47 Neut # (Auto) 7.17 10^3/uL (1.8-7.7) 01/16/25 20:47 Lymph # (Auto) 1.8 10^3/uL (0.8-4.8) 01/16/25 20:47 [place] # (Auto) 1.6 10^3/uL (0.2-0.9) H 01/16/25:47 Eos # (Auto) 0.4 10^3/uL (0.0-0.8) 01/16/25 20:47 Baso # (Auto) 0.1 10^3/uL (0.0-0.1) 01/16/25 20:47 Nucleated RBC % (auto) 0 % 01/16/25: Nucleated RBCs # 0.0 /100WBC 01/16/25 20:47 Sodium 137 mmol/L (136-145) 01/16/25 19:45 Potassium 4.5 mmol/L (3.5-5.1) 01/16/25 19:45 Chloride 101 mmol/L (98-107) 01/16/25 19:45 Carbon Dioxide 23 mmol/L (22-29) 01/16/25 19:45 Anion Gap 17.5 (5-19) 01/16/25 19:45 BUN 13 mg/dL (6-20) 01/16/25 19:45 Creatinine 0.6 mg/dL (0.5-0.9) 01/16/25 19:45 GFR Calculation 105.8 mL/min (90-130) 01/16/25 19:45 Glucose 90 mg/dL (65-115) 01/16/25 19:45 Calculated Osmolality 284 mOsm/kg (285-295) L 01/16/25 19:45 Calcium 8.9 mg/dL (8.5-10.5) 01/16/25 19:45 Total Bilirubin 0.7 mg/dL (0.15-1.2) 01/16/25 19:45 AST 21 U/L (0-32) 01/16/25 19:45 ALT 18 U/L (0-33) 01/16/25 19:45 Alkaline Phosphatase 92 U/L (35-105) 01/16/25 19:45 Troponin T Baseline 14 ng/L (0-10) H 01/16/25 19:45 Troponin T 120 Minute 9.59 ng/L (0-10) 01/16/25 21:53 Delta Troponin T -4.41 ABS# (0-10) L 01/16/25 21:53 NT-Pro-B Natriuret Pep 266 pg/mL (0-125) H 01/16/25 19:45 Total Protein 6.4 g/dL (6.6-8.7) L 01/16/25 19:45 Albumin 3.8 g/dL (3.5-5.2) 01/16/25 19:45 Globulin 2.6 g/dL (1.3-4.6) 01/16/25 19:45 Influenza A (PCR) Negative (Negative) 01/16/25 19:25 Influenza Type B (PCR) Negative (Negative) 01/16/25 19:25 RSV (PCR) Negative (Negative) 01/16/25 19:25 SARS-CoV-2 (PCR) Negative (Negative) 01/16/25 19:25 All radiology interpretation(s) finalized by discharge Discharge Plan Discharge Patient Disposition: Home Clinical Impression: Non-cardiac chest pain Condition: Stable Prescriptions: No Action buspirone 10 mg tablet 10 mg PO BID (DME) bilateral hinged ankle braces See Rx Instructions .Route .MEDSUPPLY Qty: 1 0RF Rx Instructions: As directed (DME) HINGED KNEE BRACE See Rx Instructions .Route .MEDSUPPLY Qty: 2 0RF Rx Instructions: As directed. (DME) Bilateral AFO See Rx Instructions .Route .MEDSUPPLY Qty: 1 0RF Rx Instructions: As directed by Arpan Martin duration of length 99 metronidazole 500 mg tablet 500 mg PO BID Qty: 14 0RF (DME) nebulizer and kit See Rx Instructions .Route .MEDSUPPLY Qty: 1 0RF Rx Instructions: As directed for medication 99LON ipratropium-albuterol 0.5 mg-3 mg(2.5 mg base)/3 mL solution for nebulization 3 ml inhalation QID PRN (Reason: wheezing) Qty: 90 1RF oxybutynin chloride 5 mg tablet extended release 24hr 5 mg PO DAILY Qty: 30 2RF famotidine 40 mg tablet 40 mg PO DAILY Qty: 30 0RF levalbuterol tartrate 45 mcg/actuation HFA aerosol inhaler 2 puff INHALATION Q6H PRN (Reason: Shortness Of Breath) Qty: 15 1RF Dulera 100-5 mcg/actuation HFA aerosol inhaler 2 puff inhalation BID Qty: 8.8 0RF hydralazine 25 mg tablet 25 mg PO TID Qty: 90 0RF multivitamin Tablet 1 tab PO DAILY atorvastatin 40 mg tablet 40 mg PO BEDTIME polyethylene glycol 3350 [Miralax] 17 gram Powder In Packet 17 g PO DAILY tizanidine 4 mg tablet 6 mg PO TID PRN (Reason: Muscle Spasm) quetiapine 200 mg tablet 100 mg PO BEDTIME lactase 9,000 unit Tablet 9,000 unit PO DAILY PRN (Reason: Constipation) Rx Instructions: ONE TAB PO TWICE A DAY NEEDED hydroxyzine HCl 25 mg tablet 25 mg PO BID diclofenac sodium 50 mg tablet,delayed release (DR/EC) 50 mg PO BID alprazolam 2 mg tablet 2 mg PO TID escitalopram oxalate 10 mg tablet 10 mg PO QAM oxycodone 10 mg tablet 10 mg PO TID MDD 3 TABS pantoprazole [Protonix] 40 mg Tablet,Delayed Release (Dr/Ec) 40 mg PO BID Discharge Orders: Discharge ED (Routine); Ordered 01/16/25 Ordered By: Mona Snyder Referrals: Dat Grant MD [Primary Care Provider] - Discharge Diet: Usual diet Discharge Activity: Increase activity as tolerated Patient Instructions: Noncardiac Chest Pain (ED), Opioid Safety, Pain Management Activity Restrictions/Additional Instructions: Thank you for choosing [facility] for your healthcare needs today. Please realize this is an emergency room and that we are providing you with a medical screening exam and this may not be complete and all inclusive of all the testing and or work up that you may need to determine your ailment or severity of your illness. You have been screened and evaluated and felt safe for discharge. Health conditions do change or evolve sometimes and as such it is important that you follow up with your Primary Doctor to be re checked, 3-5 days is a general good time frame for follow up. You are always welcome to return to the ED for re assessment if your symptoms are worsening or you have new concerns Print Language: Romanian Coding Level of Care Code ED Cutter And Edge Trimmer for Lila Hayden
[2025-01-16 20:12] LABS: Influenza A NEGATIVE (Negative); Influenza B NEGATIVE (Negative); Respiratory Syncytial Virus Ce NEGATIVE (Negative); SARS-CoV-2 PCR NEGATIVE (Negative)
[2025-01-16 20:15] VITALS: BP 119/51; PULSE 71; O2SAT 95
[2025-01-16 20:20] LABS: Troponin(5th) Baseline 14 ng/L (0-10)
[2025-01-16 20:29] LABS: Alanine Aminotransferase 18 U/L (0-33); Albumin Level 3.8 g/dL (3.5-5.2); Alkaline Phosphatase 92 U/L (35-105); Blood Urea Nitrogen 13 mg/dL (6-20); Calcium 8.9 mg/dL (8.5-10.5); Carbon Dioxide 23 mmol/L (22-29); Chloride 101 mmol/L (98-107); Creatinine Clr Calc Pharmacy 129.6406; Globulin 2.6 g/dL (1.3-4.6); Glomerular Filtration Rate 105.8 mL/min (90-130); Glucose 90 mg/dL (65-115); NT Pro B Type Natriuretic Pept 266 pg/mL (0-125); Osmolality Calculated 284 mOsm/kg (285-295); Sodium 137 mmol/L (136-145); Total Bilirubin 0.7 mg/dL (0.15-1.2); Total Protein 6.4 g/dL (6.6-8.7)
[2025-01-16 20:35] LABS: Anion Gap 17.5 (5-19); Aspartate Amino Transferase 21 U/L (0-32); Potassium 4.5 mmol/L (3.5-5.1)
[2025-01-16 20:55] LABS: Basophils # 0.1 10^3/uL (0.0-0.1); Basophils % 0.5 %; Eosinophils # 0.4 10^3/uL (0.0-0.8); Eosinophils % 3.4 %; Hematocrit 42.4 % (36-47); Lymphocytes # 1.8 10^3/uL (0.8-4.8); Lymphocytes % 16.6 %; Mean Corpuscular HGB Conc 32.1 g/dL (30-55); Mean Corpuscular Hemoglobin 30.4 pg (27-33); Mean Corpuscular Volume 94.9 fl (85-98); Mean Platelet Volume 9.3 fL (7.4-10.4); Monocytes # 1.6 10^3/uL (0.2-0.9); Monocytes % 14.1 %; Neutrophils # 7.17 10^3/uL (1.8-7.7); Neutrophils % 65.1 %; Nucleated Red Blood Cells % 0 %; Platelet Count 384 10^3/cmm (157-399); Red Blood Count 4.47 10^6/uL (3.85-5.65); Red Cell Distribution Width 12.4 % (12.1-15.1); White Blood Count 11.03 10^3/uL (3.29-11.43)
--- NOTE | 2025-01-16 21:06 | ECG_ITS ---
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
[2025-01-16 21:08] VITALS: BP 113/80; PULSE 76; O2SAT 92
[2025-01-16 21:30] VITALS: BP 120/91; PULSE 78; O2SAT 100
[2025-01-16 22:00] VITALS: BP 120/91; PULSE 78; O2SAT 92
[2025-01-16 22:25] LABS: Troponin 5 2HR 9.59 ng/L (0-10); Troponin 5 2HR Delta -4.41 ABS# (0-10)
[2025-01-16 22:38] VITALS: BP 116/83; PULSE 80; O2SAT 92
--- NOTE | 2025-01-16 22:48 | PC.NURSE ---
Pt requested pain medications throughout stay. This nurse notified MD of pain. MD did not see fit to provided pain medications, pt stated she had an allergy to all other alternatives that he suggested. Upon discharge pt was very aggravated with discharge and not receiving pain treatment .
== END 2025-01-16 22:40 | disposition home or self-care (01) ==
PROVIDERS: Emergency Provider Emergency Medicine; PCP Family Medicine
DX: R07.89 Other chest pain (principal); Z11.52 Encounter for screening for COVID-19; Z87.891 Personal history of nicotine dependence; J44.9 Chronic obstructive pulmonary disease, unspecified; I50.9 Heart failure, unspecified
CPT/HCPCS: 36415; 71045; 80053; 83880; 84484; 85025; 87637; 93005; 99285

== ENCOUNTER 2025-09-21 14:20 | Outpatient (CLI) | payer OTHER, MEDICAID, SELFPAY ==
--- NOTE | 2025-09-21 14:30 | MR_ITS ---
WS: [id number] MR CERVICAL SPINE WO/W COMPARISON: MRI 2023 HISTORY: cervical radiculopathy TECHNIQUE: Sagittal T1, T2 and T2 inversion recovery; axial T2, T2 gradient and fiesta. Post gadolinium imaging with fat saturation technique. FINDINGS: Straightening of the normal cervical lordosis. Prior ACDF C5-6. LEFT C2-3 facet synovitis with periarticular edema and associated enhancement. Associated encapsulated fluid or synovial cyst in the LEFT facet. Recommend correlation with LEFT upper neck pain. C2-3: Mild facet arthropathy. Mild LEFT bony foraminal narrowing. Spinal canal is patent. LEFT facet synovitis described above. Moderate facet arthropathy. C3-4: Mild disc bulge with endplate ridging. Mild LEFT greater than RIGHT bony foraminal narrowing. Mild facet arthropathy. Mild LEFT facet synovitis. C4-5: Central disc osteophyte protrusion with indentation on the cervical cord. Mild to moderate central canal stenosis appears slightly progressed. Mild facet arthropathy. Mild LEFT greater than RIGHT bony foraminal narrowing. C5-6: Postoperative changes ACDF. Moderate LEFT and mild to moderate RIGHT bony foraminal narrowing. Moderate facet arthropathy. C6-7: Shallow central protrusion. Mild central canal stenosis. Moderate LEFT and mild RIGHT bony foraminal narrowing. Uncovertebral joint hypertrophy. C7-T1: LEFT paracentral disc osteophyte protrusion with indentation on the LEFT ventral cervical cord. Mild central canal stenosis. Disc osteophyte protrusion is similar to previous. Uncovertebral joint hypertrophy. Moderate LEFT greater than RIGHT bony foraminal narrowing. Mild facet arthropathy. Slight thyroid nodularity. MR/MR cervical spine wo/w [id number] IMPRESSION: 1. Straightening of the normal cervical lordosis with ACDF C5-6. 2. Slightly progressed mild to moderate central canal stenosis C4-5 with disc osteophyte protrusion. 3. Stable mild central canal stenosis C6-7 and C7-T1 with LEFT paracentral dis c osteophyte protrusion C7-T1 similar to previous. 4. Prominent LEFT C2-3 facet synovitis with surrounding enhancing periarticula r inflammation. Lobulated synovial cyst or fluid collection in the facet joint. Findings may be infectious, inflammatory, or degenerative. Recommend correlati on with LEFT upper neck pain. No drainable abscess or fluid collection. 5. Mild facet synovitis LEFT C3-4. 6. Multilevel bony foraminal narrowing worse at LEFT C5-C6 and LEFT C6-C7.
[2025-09-21] MEDS: gadobenate dimeglumine 20 mL vial IV (15:19)
== END 2025-09-21 14:21 | disposition home or self-care (01) ==
LOC: RAD 14:21
PROVIDERS: PCP Family Medicine; Visit Provider Anesthesiology
DX: M54.12 Radiculopathy, cervical region (principal); M47.892 Other spondylosis, cervical region; M48.02 Spinal stenosis, cervical region; M65.89 Other synovitis and tenosynovitis, multiple sites; M50.022 Cervical disc disorder at C5-C6 level with myelopathy; M25.78 Osteophyte, vertebrae; M50.23 Other cervical disc displacement, cervicothoracic region; M65.88 Other synovitis and tenosynovitis, other site; M46.01 Spinal enthesopathy, occipito-atlanto-axial region; M71.38 Other bursal cyst, other site; M25.48 Effusion, other site; M47.812 Spondylosis without myelopathy or radiculopathy, cervical region; M53.82 Other specified dorsopathies, cervical region; M46.92 Unspecified inflammatory spondylopathy, cervical region
CPT/HCPCS: 72156; A9577

== ENCOUNTER 2025-10-04 13:35 | Outpatient (CLI) | payer OTHER, MEDICAID, SELFPAY ==
--- NOTE | 2025-10-04 13:39 | MRR_ITS ---
PROCEDURE INFORMATION: Exam: MR Left Upper Extremity Joint Without Contrast; Shoulder Exam date and time: 10/04/2025 2:09 PM Age: 50 years old Clinical indication: Pain; Shoulder; Left; HX of breast cancer; Additional info: Left shoulder impingement TECHNIQUE: Imaging protocol: Magnetic resonance imaging of the left upper extremity without contrast. Exam focused on the shoulder. COMPARISON: MR cervical spine wo/w [id number] 09/21/2025 2:57 PM FINDINGS: Bones/joints: There is complete loss of the acromiohumeral distance. There is moderate acromioclavicular joint degenerative osteoarthritis with marginal osteophyte production and degenerative subchondral cyst formation. Small degenerative subchondral cysts are seen within the superolateral edge of the greater tuberosity. Glenoid labrum: There is a SLAP tear extending from the 11:00 a.m. to the 1 o'clock position. In addition, medial tearing extends into the biceps anchor. Supraspinatus tendon: There is a full-thickness, full width tear of the supraspinatus tendon. The tendon is retracted 4.5 cm. There is no significant muscle belly atrophy. Infraspinatus tendon: The infraspinatus tendon is intact. Subscapularis tendon: The subscapularis tendon is intact. Teres minor tendon: The teres minor tendon is intact. Tendon of biceps brachii: The intra-articular extent of the long head of the biceps brachii tendon is not visualized. The tendon is never discretely visualized within the biceps tendon sheath. The short head of the biceps brachii tendon is intact. Glenohumeral ligaments: Unremarkable. Soft tissues: Unremarkable. MR/MR shoulder LT wo con* [id number] IMPRESSION: 1. Full-thickness, full width tear of the supraspinatus tendon with tendon retraction. 2. SLAP tear with medial extension to the biceps anchor. 3. Complete tear of the long head biceps brachii tendon. 4. Moderate acromioclavicular joint degenerative osteoarthritis.
== END 2025-10-04 13:36 | disposition home or self-care (01) ==
LOC: RAD 13:36
PROVIDERS: PCP Family Medicine; Visit Provider Orthopaedic Surgery
DX: M75.42 Impingement syndrome of left shoulder (principal); S46.012A Strain of muscle(s) and tendon(s) of the rotator cuff of left shoulder, initial encounter; S43.432A Superior glenoid labrum lesion of left shoulder, initial encounter; S46.212A Strain of muscle, fascia and tendon of other parts of biceps, left arm, initial encounter; X58.XXXA Exposure to other specified factors, initial encounter; M19.012 Primary osteoarthritis, left shoulder
CPT/HCPCS: 73221